=== PATIENT | female | born 1940 | race Caucasian/White ===

== ENCOUNTER 2017-11-05 17:14 | Inpatient (IN) | payer MEDICARE, BC, SELFPAY ==
[2017-11-05] VITALS (73 sets, daily range): BP systolic 83–158; BP diastolic 44–93; PULSE 76–135; RESP 10–42; TEMP 36.6–40.3; O2SAT 91–99
--- NOTE | 2017-11-05 17:19 | DI.COMBO_ITS ---
SYMPTOM/DIAGNOSIS: SOB, HYPOXIC, TACHYCARDIA PORTABLE AP CHEST: No priors. There is a poor inspiration. The patient is rotated. Heart size and pulmonary vasculature appear stable. Note is made of a nerve stimulator. Post surgical changes are seen in the lumbar spine at the bottom of the film. Note is also made of an IVC filter overlying the L 2 and L 3 vertebral bodies. The right lung appears clear. The left lung base is not well visualized and a left basilar infiltrate and/or effusion cannot be excluded. Post surgical changes are also noted in the cervical spine. Marked degenerative changes are seen in the shoulders, right greater than left. IMPRESSION: Question of a left basilar infiltrate and/or effusion. PE CHEST CT: CT angiography was performed with multi slice acquisition and multi planar and 3D reconstruction. CT scan of the chest was performed according to the pulmonary embolus protocol. There is no evidence of a pulmonary embolus. There is atherosclerosis of the thoracic aorta but no aneurysmal dilatation or dissection. Heart size is within normal limits. No pericardial effusion is seen. No findings to suggest right ventricular dysfunction are present. Mildly enlarged lymph nodes are seen in the mediastinum but no significant adenopathy is appreciated. No pleural effusion or pneumothorax is identified. There is an infiltrate seen in the left lower lobe suspicious for pneumonia. The tracheobronchial tree is unremarkable. Upper abdominal images show cholelithiasis. Renal cysts are present. Post surgical changes are seen in the lower cervical spine. The patient has a nerve stimulator, the tip is at approximately T 7. Note is made of an inferior vena cava filter. IMPRESSION: 1. No evidence of a pulmonary embolus, thoracic aortic dissection or aneurysm. 2. Left lower lobe infiltrate. This may represent atelectasis or pneumonia.
[2017-11-05] MEDS: PIPERACILLIN/TAZO 4.5 GM in Normal Saline 100 ML IVPB (18:00)
[2017-11-05] MEDS: Normal Saline 1,000 ML 1000 ML IV (18:02)
[2017-11-05] MEDS: Acetaminophen 500 MG TAB 1000 MG PO (18:05)
[2017-11-05 18:17] LABS: Lactate-non-spesis 2.2 mmol/L (0.6-1.4)
[2017-11-05 18:23] LABS: Abs Immature Grans 0.04 k/cumm (0.0-0.09); Absolute Basophil Count 0.01 k/cumm (0.0-0.2); Absolute Eosinophil Count 0.18 k/cumm (0.0-0.7); Absolute Monocyte Count 1.04 k/cumm (0.11-0.7); Basophils % 0.1; Eosinophils % 1.4; HCT 28.3 % (36.0-46.0); HGB 9.3 g/dL (12.0-15.5); Immature Grans % 0.3; Lymphocytes % 4.3; Mean Corp. HGB Concentration 32.9 g/dL (32.0-36.0); Mean Corpuscular Hemoglobin 34.3 pg (27.0-33.0); Mean Corpuscular Volume 104.4 fL (80-95); Mean Platelet Volume 10.4 fL (8.0-11.0); Monocytes % 8.2; Neutrophils % 85.7; Platelet Count 207 x1000/uL (130-400); RBC 2.71 m/cumm (4.00-5.20); RBC Distribution Width 14.5 % (11.7-14.6); White Blood Cell Count 12.67 k/cumm (4.4-10.8)
--- NOTE | 2017-11-05 18:24 | DI.VRAD_ITS ---
EXAM: Portable XR Chest, 1 View EXAM DATE/TIME: 11/05/2017 5:20 PM CLINICAL HISTORY: 77 years old, female; Signs and symptoms; Shortness of breath; Patient HX: SOB; Additional info: Portable exam TECHNIQUE: Portable XR of the chest, 1 view. COMPARISON: No relevant prior studies available. FINDINGS: Lungs: There is a poor inspiratory effort. A left lower lobe infiltrate is not excluded. Pleural space: A small left pleural effusion is not excluded. Heart/Mediastinum: There is cardiomegaly. Vasculature: There are arteriosclerotic changes of the aorta. Upper abdomen: There is an IVC filter. Bones/joints: The patient status post lumbar spine surgery. There are chronic changes of both shoulders. The patient is status post cervical spine surgery. Other findings: There are multiple stimulators. IMPRESSION: Poor inspiratory effort. Suspect left lower lobe infiltrate and pleural effusion. Cardiomegaly. Osseous findings as above. IVC filter. Stimulators. Dictated and Authenticated by: Roger Vaca MD. Ordering:RANDY ENRIQUEZ MD
[2017-11-05 18:25] LABS: Absolute Lymphocyte Count 0.54 k/cumm (1.2-3.4); Absolute Neutrophil Count 10.86 k/cumm (1.2-6.7)
[2017-11-05 18:41] LABS: ALT 120 U/L (12-78); AST 146 U/L (15-37); Albumin 2.2 g/dL (3.4-5.0); Alkaline Phosphatase 131 U/L (46-116); Anion Gap 6.7 mmol/L (3-11); BUN 20 mg/dL (7-18); Bilirubin, Total 0.5 mg/dL (0.2-1.0); CO2 28.3 mmol/L (21.0-32.0); CREATININE 0.94 mg/dL (0.55-1.02); Calcium 8.9 mg/dL (8.5-10.1); Chloride 97 mmol/L (98-107); Estimated GFR 57.74 (mL/min/1.73m2); Glucose 128 mg/dL (70-100); Potassium 4.5 mmol/L (3.5-5.1); Sodium 132 mmol/L (136-145)
[2017-11-05 18:42] LABS: Troponin I < 0.02 ng/mL (0.00-0.06)
[2017-11-05 18:56] LABS: Bilirubin Negative (Negative); Blood Trace-intact (Negative); Clarity Clear; Glucose Negative (Negative); Ketones Negative (Negative); Leukocyte Esterase Negative (Negative); Nitrite Negative (Negative); Specific Gravity 1.015 (1.005-1.025); Urobilinogen 0.2 EU/dL (Up TO 0.2); pH 5.5 (5-8)
[2017-11-05 19:02] LABS: Bacteria Negative HPF (Negative); C & S Indicated? C&S Done As Ordered; Casts 3-5 Hyaline LPF (Negative); Crystals Few Amorphous HPF (Negative); Epithelial Cells Few HPF (Negative); Mucus Negative (Negative); RBC Negative (0-2)
[2017-11-05] MEDS: Omnipaque 350 MG/ML 100 ML BTL IJ (19:52)
[2017-11-05] MEDS: VANCOMYCIN 1,000 MG in Normal Saline 250 ML 166.667 MG IVPB (20:02)
--- NOTE | 2017-11-05 20:21 | DI.VRAD_ITS ---
EXAM: CT Angiography Chest With Intravenous Contrast EXAM DATE/TIME: 11/05/2017 5:41 PM CLINICAL HISTORY: 77 years old, female; Signs and symptoms; Other: Tachy, hypoxic; Prior surgery TECHNIQUE: Axial computed tomographic angiography images of the chest with intravenous contrast using CT angiography protocol. Coronal and sagittal reformatted images were created and reviewed. MIP reconstructed images were created and reviewed. COMPARISON: SC XR PORTABLE CHEST AP 11/05/2017 5:29 PM FINDINGS: Tubes, catheters and devices: There is a stimulator posteriorly at the left side of the upper abdomen. The stimulator wire enters at approximately L2. The end is at approximately T7. Pulmonary arteries: There is no evidence of a pulmonary embolus. Aorta: There are arteriosclerotic changes of the abdominal aorta. Inferior vena cava: There is an IVC filter. Lungs: The tracheobronchial tree is patent bilaterally. There is a consolidation with air bronchograms within the left lower lobe and a left lower lobe infiltrate is suspected. Pleural space: Normal. No pneumothorax. No pleural effusion. Heart: The heart and pericardium are within normal limits. Bones/joints: The patient is status post cervical spine surgery. There are degenerative changes of both shoulders. There are degenerative changes of the thoracic spine. Soft tissues: Unremarkable. Lymph nodes: There is subcarinal adenopathy. Gallbladder and bile ducts: There are gallstones. Kidneys and ureters: There are suspected right renal cysts. The largest of which measures approximately 1.4 cm. Upper abdomen: The right hemidiaphragm is elevated. The visualized upper abdomen is somewhat limited due to motion. IMPRESSION: No evidence of pulmonary embolus. Arteriosclerotic changes of the aorta. Left lower lobe infiltrate. Osseous findings as above. IVC filter. Cholelithiasis. Stimulator as above. Dictated and Authenticated by: Roger Vaca MD. Ordering:PETER BOOTHE MD
[2017-11-05] MEDS: oxyCODONE 5 MG TAB PO (20:28)
[2017-11-05 21:03] LABS: BE (Venous) 2.9 mmol/L (-3-3); HCO3 (Venous) 27 mmol/L (22-28); pCO2 (Venous) 40 mm/Hg (34-47); pH (Venous) 7.44 (7.32-7.43); pO2 (Venous) 138 mm/Hg (28-44)
[2017-11-05 21:07] LABS: O2 Sat (Venous) > 99 % (70-80)
--- NOTE | 2017-11-05 21:30 | ED.GENADUL_ITS ---
Discharge Plan Disposition Patient Disposition: [facility] INPATIENT Condition: Stable Discharge Details Chief Complaint: SOB Clinical Impression: Sepsis syndrome, Left lower lobe pneumonia, Hypoxemia Reason For Visit: TACHYCARDIA,SEPSIS SYNDROME,INSTITUTION ACQUIRED P Admit Date/Time: 11/05/17 21:31 Admit Provider: Anthony Caballero Attending Provider: Anthony Caballero Primary Care Provider: Kinga Arceo ED Provider: Andrea Shaffer Discharge Data Discharge Date/Time-TO BE ENTERED AT DEPARTURE: 11/05/17 23:40 Medical Decision Making This is a 77-year-old female who was recently at [facility] for a left lower extremity knee surgery. She was discharged this afternoon and when she arrived at her facility here in [facility] she was noted to be tachycardic, febrile with a temperature of 104, and hypoxic in the 80s. She does not normally use oxygen. She was immediately sent to the ER for further evaluation. In the emergency department these physical exam findings and vital sign findings persisted. She was started on high flow oxygen therapy , positive pressure ventilation, she was noted to have crackles in her left lung moss. She did complain of cough. Although she had been on oral antibiotics for a urinary tract infection who is very concerned for potential pneumonia. With vital signs concerning for sepsis she was started with IV fluid boluses, and broad-spectrum antibiotics for potential hospital-acquired pneumonia versus unknown source. Initial blood pressure was in the 80s, however with fluid resuscitation the patient's blood pressure normalized. Her oxygen improved with positive pressure ventilation. Lab results have returned and demonstrates a white count of 12, a lactate of 2.2 which will require re- evaluation. Normal electrolytes. Creatinine is normal, troponin is normal. TSH is normal. Urinalysis shows no evidence of severe infection. CT scan does demonstrate evidence of no acute pulmonary embolus, there is notable left lower lobe infiltrate. VBG shows no signs of acidosis or significant CO2 retention. EKG shows evidence of sinus tachycardia but no significant ST changes. I discussed the findings in the current plan and the need for admission with the family. They do request that the patient be transferred back to [facility] since that is where the majority of her care was previously. I did contact [facility] and discussed the case with the night mid-level, he states that they do not have any beds appropriate for the patient at this time. I discussed the case with the hospitalist here at [facility], and Dr. Caballero agrees with the assessment and plan and accepts the patient for admission to the ICU. I have extensively reviewed the treatment plan with the patient. I have addressed all patient concerns at this time. I have also discussed the plan with the admitting physician and they agree with the current assessment and plan and have agreed to assume responsibility for the patient. All parties demonstrate verbal understanding and agreement with our assessment and plan at this time. With the stabilization of the patient's blood pressure and heart rate I feel that there is no indication for central line or pressors at this time. Since her lactate is less than 3 there is no indication for a 30 cc/kg bolus. CT scan per virtual radiology no evidence of pulmonary embolus. Atherosclerotic changes of the aorta. Left lower lobe infiltrate. Osseous findings as described above. IVC filter present. Cholelithiasis. Stimulator present. Portable chest x-ray demonstrates poor inspiratory effort. Suspected left lower lobe infiltrate and pleural effusion. Cardiomegaly. Osseous findings, IVC filter and stimulator present. Time EKG 17: 50 Rate 130, NJ 112, QTc 473, sinus tachycardia, short NJ syndrome notable artifact. No significant ST elevation. HPI General Date/Time Provider Initiated Documentation: 11/05/17 17:19 . HPI Narrative: This is a 77-year-old female with a past medical history of hypertension, aortic stenosis, high cholesterol, anemia, inferior vena cava filter, recent urinary tract infection for which she is being actively treated with Cefpodoxime presents today for evaluation of fever, hypoxemia, tachycardia and signs concerning for sepsis. Per the patient's history she was at [facility] less than 24 hours ago for surgery on her left knee and a patella fracture. She was discharged this afternoon apparently in good health, however upon her arrival to the rehab facility her temperature was noted to be 103-104, she was tachycardic in the 120s, hypoxic in the 80s, was immediately transferred to the [facility] emergency department for assessment. Patient does complain of cough, malaise, shortness of breath. She denies any pleuritic chest pain. She denies any current dysuria. She denies any new extremity pain. She denies any pertinent family history. She denies any IV or illicit drug use. She has no other complaints at this time. Related Data Home Medications Medication Instructions Recorded Confirmed allopurinol 300 mg PO BID 07/08/13 11/05/17 amitriptyline 25 mg PO HS 07/08/13 11/05/17 aspirin [Aspir 81] 81 mg PO DAILY 07/08/13 11/05/17 atorvastatin [Lipitor] 10 mg PO DAILY 07/08/13 11/05/17 cholecalciferol (vitamin D3) 400 unit PO DAILY 07/08/13 11/05/17 [Vitamin D] folic acid 1 mg PO DAILY 07/08/13 11/05/17 gabapentin [Neurontin] 800 mg PO TID 07/08/13 11/06/17 methotrexate sodium 1 tab PO .QTUES 07/08/13 11/06/17 metoprolol succinate 50 mg PO DAILY 07/08/13 11/05/17 multivitamin 1 tab PO DAILY 07/08/13 11/05/17 oxycodone 0.5 tab PO Q6H PRN PRN 07/08/13 11/06/17 amlodipine 1 tab PO DAILY 11/05/17 11/05/17 calcium carbonate-vitamin D3 1 tab PO BID 11/05/17 11/05/17 [Calcium 600 with Vitamin D3] docusate sodium [Colace] 2 tab PO BID PRN 11/05/17 11/05/17 furosemide 20 mg PO DAILY 11/05/17 11/06/17 prednisone 2.5 mg PO DAILY 11/05/17 11/05/17 Allergies Allergy/AdvReac Type Severity Reaction Status Date / Time hydrochlorothiazide Allergy Unverified 11/05/17 17:44 General Stated Complaint: SOB HONORIO: 2 Review of Systems Review of Systems All systems reviewed & are unremarkable except as noted in HPI and below PFSH Medical History Aortic stenosis (Chronic) Anemia (Chronic) Chronic pain (Chronic) Dyslipidemia (Acute) Hypertension (Chronic) Rheumatoid arthritis (Chronic) UTI (urinary tract infection) (Acute) Aortic stenosis (Chronic) Degenerative disc disease, cervical (Chronic) Degenerative disc disease, lumbar (Chronic) GERD (gastroesophageal reflux disease) (Chronic) Hypertension (Chronic) Hyperuricemia (Chronic) Inflammatory arthritis (Chronic) Osteoporosis (Chronic) Social History Smoking/Tobacco Use Status: Never Exam Narrative Exam Narrative: 1.Const: Well-nourished, Well-developed, appearing stated age 2.Eyes: PERRL, no conjunctival injection, and symmetrical lids. 3.ENT: Atraumatic external nose and ears. dry MM. Neck: Symmetric, trachea midline, No thyromegaly. 4.CVS: +S1/S2, notable systolic murmur or gallops. Peripheral pulses 2+ and equal in all extremities. Brisk capillary refill in all extremities. Including her lower extremities bilaterally 5.RESP: Crackles in the bases bilaterally, no significant wheezes. Mild tachypnea. 6.GI: Soft, Nontender/Nondistended, No hepatosplenomegaly. No guarding or rebound. 7.MSK: Normocephalic the patient does demonstrate a brace on her left lower extremity over the knee secondary to her recent surgery. Capillary refill is brisk, dorsalis pedis is present and +2 bilaterally. No tenderness 8.Skin: Warm, Dry. No rashes or lesions. 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 Sensation grossly intact, no focal neurologic deficits. 10.Psych: (AAO) x3. Appropriate mood and affect Course Vital Signs Pulse 123 H 11/05/17 17:10 Respiratory Rate 32 H 11/05/17 17:10 Pulse Oximetry 98 11/05/17 17:10 Temperature 37.7 C H 11/05/17 21:11 Temperature Source Skin 11/05/17 21:11 Pulse 111 H 11/05/17 20:16 Pulse 111 H 11/05/17 20:16 Respiratory Rate 28 H 11/05/17 20:16 Respiratory Effort 11/05/17 18:10 Blood Pressure 123/51 L 11/05/17 20:16 Blood Pressure Mean 67 11/05/17 20:16 Pulse Oximetry 93 L 11/05/17 20:16 Oxygen Delivery Method Bi-pap 11/05/17 17:38 Fraction of Inspired Oxygen (FIO2) 30 11/05/17 18:20 Pain Level 7 11/05/17 20:28 Lab/Test Results Lab/Test Results: 11/05/17 18:21 Urine - Cath Palomares Indwelling Urine Culture - Pending 11/05/17 18:16 Blood Blood Culture - Pending 11/05/17 17:33 Blood Blood Culture - Pending Laboratory Tests Range/Units 11/05/17 11/05/17 11/05/17 17:33 17:33 17:33 WBC (4.4-10.8) k/cumm 12.67 H RBC (4.00-5.20) m/cumm 2.71 L Hgb (12.0-15.5) g/dL 9.3 L Hct (36.0-46.0) % 28.3 L MCV (80-95) fL 104.4 H MCH (27.0-33.0) pg 34.3 H MCHC (32.0-36.0) g/dL 32.9 RDW (11.7-14.6) % 14.5 Plt Count (130-400) x1000/uL 207 MPV (8.0-11.0) fL 10.4 Immature Gran % 0.3 Neutrophils % 85.7 Lymphocytes % 4.3 Monocytes % 8.2 Eosinophils % 1.4 Basophils % 0.1 Absolute Neutrophils (1.2-6.7) k/cumm 10.86 H Absolute Lymphocytes (1.2-3.4) k/cumm 0.54 L Absolute Monocytes (0.11-0.7) k/cumm 1.04 H Absolute Eosinophils (0.0-0.7) k/cumm 0.18 Absolute Basophils (0.0-0.2) k/cumm 0.01 VBG pH (7.32-7.43) VBG pCO2 (34-47) mm/Hg VBG pO2 (28-44) mm/Hg VBG HCO3 (22-28) mmol/L VBG Total CO2 VBG O2 Saturation (70-80) % VBG Base Excess (-3-3) mmol/L Sodium (136-145) mmol/L 132 L Potassium (3.5-5.1) mmol/L 4.5 Chloride (98-107) mmol/L 97 L Carbon Dioxide (21.0-32.0) mmol/L 28.3 Anion Gap (3-11) mmol/L 6.7 BUN (7-18) mg/dL 20 H Creatinine (0.55-1.02) mg/dL 0.94 Estimated GFR/1.73 m2 (mL/min/1.73m2) 57.74 Glucose (70-100) mg/dL 128 H Lactate (0.6-1.4) mmol/L 2.2 H Calcium (8.5-10.1) mg/dL 8.9 Total Bilirubin (0.2-1.0) mg/dL 0.5 AST (15-37) U/L 146 H ALT (12-78) U/L 120 H Alkaline Phosphatase (46-116) U/L 131 H Troponin I (0.00-0.06) ng/mL < 0.02 Total Protein (6.4-8.2) g/dL 6.0 L Albumin (3.4-5.0) g/dL 2.2 L TSH (0.358-3.74) uIU/mL 2.20 Urine Color (Yellow) Urine Clarity Urine pH (5-8) Ur Specific [place] (1.005-1.025) Urine Protein (Negative) mg/dL Urine Ketones (Negative) mg/dL Urine Blood (Negative) Urine Nitrite (Negative) Urine Bilirubin (Negative) Urine Urobilinogen (Up TO 0.2) EU/dL Ur Leukocyte Esterase (Negative) Urine RBC (0-2) Urine WBC (0-5) HPF Ur Epithelial Cells (Negative) HPF Urine Crystals (Negative) HPF Urine Bacteria (Negative) HPF Urine Casts (Negative) LPF Urine Mucus (Negative) Ur Culture Indicated? Urine Glucose (Negative) mg/dL Range/Units 11/05/17 11/05/17 11/05/17 17:34 18:21 20:55 WBC (4.4-10.8) k/cumm RBC (4.00-5.20) m/cumm Hgb (12.0-15.5) g/dL Hct (36.0-46.0) % MCV (80-95) fL MCH (27.0-33.0) pg MCHC (32.0-36.0) g/dL RDW (11.7-14.6) % Plt Count (130-400) x1000/uL MPV (8.0-11.0) fL Immature Gran % Neutrophils % Lymphocytes % Monocytes % Eosinophils % Basophils % Absolute Neutrophils (1.2-6.7) k/cumm Absolute Lymphocytes (1.2-3.4) k/cumm Absolute Monocytes (0.11-0.7) k/cumm Absolute Eosinophils (0.0-0.7) k/cumm Absolute Basophils (0.0-0.2) k/cumm VBG pH (7.32-7.43) 7.44 H VBG pCO2 (34-47) mm/Hg 40 VBG pO2 (28-44) mm/Hg 138 H VBG HCO3 (22-28) mmol/L 27 VBG Total CO2 Not Applicable VBG O2 Saturation (70-80) % > 99 H VBG Base Excess (-3-3) mmol/L 2.9 Sodium (136-145) mmol/L Potassium (3.5-5.1) mmol/L Chloride (98-107) mmol/L Carbon Dioxide (21.0-32.0) mmol/L Anion Gap (3-11) mmol/L BUN (7-18) mg/dL Creatinine (0.55-1.02) mg/dL Estimated GFR/1.73 m2 (mL/min/1.73m2) Glucose (70-100) mg/dL Lactate (0.6-1.4) mmol/L Calcium (8.5-10.1) mg/dL Total Bilirubin (0.2-1.0) mg/dL AST (15-37) U/L ALT (12-78) U/L Alkaline Phosphatase (46-116) U/L Troponin I (0.00-0.06) ng/mL Total Protein (6.4-8.2) g/dL Albumin (3.4-5.0) g/dL TSH (0.358-3.74) uIU/mL Cancelled Urine Color (Yellow) Yellow Urine Clarity Clear Urine pH (5-8) 5.5 Ur Specific [place] (1.005-1.025) 1.015 Urine Protein (Negative) mg/dL 100 H Urine Ketones (Negative) mg/dL Negative Urine Blood (Negative) Trace-intact H Urine Nitrite (Negative) Negative Urine Bilirubin (Negative) Negative Urine Urobilinogen (Up TO 0.2) EU/dL 0.2 Ur Leukocyte Esterase (Negative) Negative Urine RBC (0-2) Negative Urine WBC (0-5) HPF 5-10 Ur Epithelial Cells (Negative) HPF Few Urine Crystals (Negative) HPF Few amorphous Urine Bacteria (Negative) HPF Negative Urine Casts (Negative) LPF 3-5 hyaline Urine Mucus (Negative) Negative Ur Culture Indicated? C&s done as ordered Urine Glucose (Negative) mg/dL Negative
--- NOTE | 2017-11-05 22:20 | W.PM.HP.N ---
Date of service: 11/05/17 Time of Service: 22:21 Assessment and Plan (1) Left lower lobe pneumonia: Start date: 11/05/17 Current visit: Yes Status: Acute 77-year-old lady who recently was hospitalized for surgery on the left knee and manifested fever, shortness of breath and tachycardia while being transferred to a local rehab facility. ED evaluation revealed left lower lobe pneumonia which will be treated as an institution acquired pneumonia. She is not hypoxic and was more comfortable at the time I examined her. She had IV hydration this will be modified with advancing metoprolol and no diuresis for now which she was on as an outpatient possibly for hypertension or peripheral edema. She has not been significantly hypoxic by report from the ED. (2) Sepsis syndrome: Start date: 11/05/17 Current visit: Yes Status: Acute Associated with her acute fever, tachycardia and leukocytosis with fever and tachycardia resolved after IV hydration. Diuretics will be held for now. Metoprolol will be adjusted for blood pressure off diuretics. (3) Tachycardia: Start date: 11/05/17 Current visit: Yes Status: Acute This has improved with IV hydration most likely was a consequence of acute infection with chronic diuresis and slight dehydration. Continue IV fluids slowing as she has increased output improves. Follow-up on labs. History of Present Illness Chief Complaint: Acute fever with tachycardia Narrative: This is a very pleasant 77-year-old lady who appears older than his stated age who recently was hospitalized at [facility] for repair of a spontaneous fracture left patella which occurred while she was done at her kitchen sink. She has had severe inflammatory arthritis chronically on methotrexate and low-dose prednisone for this last year. She has osteoporosis and has had multiple orthopedic surgeries the pathologic fracture of her right hip requiring replacement, surgery on her right knee for cartilage removal, surgery on her left elbow which resulted in a DVT and IVC filter being placed at one time and back surgery on her cervical spine and lumbar spine with a lumbar stimulator placed after 1 of the surgeries. She has had a total hysterectomy as one of her non-orthopedic surgeries. After repair of her left knee she was being transferred to a local nursing facility for rehabilitation and had stable vital signs and no symptoms upon discharge but in transfer had fever up to 104 reported, though in the emergency room her temperature was last recorded at 37.7. She had tachycardia but no hypoxemia. She was also dyspneic but no cough. She was found to have an elevated lactic acid and was started started on treatment for institution acquired pneumonia by the ED physician. CT scan for PE protocol did not reveal any PE but did reveal left lower lobe infiltrate. At the time I saw the patient she was not tachycardic after being hydrated and felt much better. She is not having rigors or chills. Fever had improved. She does have chronic pain on chronic with fentanyl and high-dose oxycodone though she had weaned down on oxycodone before she fractured her left patella. The patient has recently lost her in the last year and is doing with this living along with her arthritic disabilities. Her daughter is her DPOA. Past medical history significant for her inflammatory arthritis with resulting osteoporosis and deformities from chronic treatment of this problem, chronic pain, hypertension, recent UTI with indwelling Palomares in place on transfer to the intermediate, aortic stenosis but no CHF though she is on Lasix daily and GERD. Review of Systems Constitutional Reports as per HPI Cardiovascular Reports edema Respiratory Reports as per HPI Gastrointestinal Comments: No abdominal pain or change in bowel movements recently. Genitourinary Comments: Endorgan Palomares with recent UTI and presently no dysuria. Musculoskeletal Comments: Diffuse arthritic changes and deformities with long-term arthritis. Neurologic Reports paresthesias Psychiatric Reports depression Comments: She is grieving her 's recent . Hematologic/Lymphatic Reports easy bruising [facility] Medical History UTI (urinary tract infection) (Acute) Aortic stenosis (Chronic) Degenerative disc disease, cervical (Chronic) Degenerative disc disease, lumbar (Chronic) GERD (gastroesophageal reflux disease) (Chronic) Hypertension (Chronic) Hyperuricemia (Chronic) Inflammatory arthritis (Chronic) Osteoporosis (Chronic) Social History Smoking/Tobacco Use Status: Never Meds Home Medications Medication Instructions Recorded Confirmed Type alendronate 70 mg PO .QWEEKLY 07/08/13 07/08/13 History allopurinol 300 mg PO BID 07/08/13 11/05/17 History amitriptyline 25 mg PO HS 07/08/13 11/05/17 History aspirin [Aspir 81] 81 mg PO DAILY 07/08/13 11/05/17 History atorvastatin [Lipitor] 10 mg PO DAILY 07/08/13 11/05/17 History cholecalciferol (vitamin D3) 400 unit PO DAILY 07/08/13 11/05/17 History [Vitamin D] diclofenac sodium 50 mg PO DIRECTED 07/08/13 07/08/13 History fentanyl 75 mcg TRANSDERMAL .Q3DAYS 07/08/13 11/05/17 History folic acid 1 mg PO DAILY 07/08/13 11/05/17 History gabapentin [Neurontin] 400 mg PO TID 07/08/13 11/05/17 History lisinopril 30 mg PO DAILY 07/08/13 07/08/13 History methotrexate sodium 7 tab PO .QTUES 07/08/13 11/05/17 History metoprolol succinate 50 mg PO DAILY 07/08/13 11/05/17 History multivitamin 1 tab PO DAILY 07/08/13 11/05/17 History oxycodone 1 tab PO Q6H PRN PRN 07/08/13 11/05/17 History Lactobacillus acidophilus 1 tab PO DAILY AM 11/05/17 11/05/17 History Saccharomyces boulardii [Florastor] 1 cap PO BID 11/05/17 11/05/17 History amlodipine 1 tab PO DAILY 11/05/17 11/05/17 History calcium carbonate-vitamin D3 1 tab PO BID 11/05/17 11/05/17 History [Calcium 600 with Vitamin D3] cefpodoxime 100 mg PO BID 11/05/17 11/05/17 History docusate sodium [Colace] 2 tab PO BID PRN 11/05/17 11/05/17 History furosemide 20 mg PO DAILY PRN 11/05/17 11/05/17 History ketoconazole 1 applic TOPICAL BID 11/05/17 11/05/17 History magnesium chloride 128 mg PO BID 11/05/17 11/05/17 History pantoprazole 20 mg PO DAILY 11/05/17 11/05/17 History prednisone 2.5 mg PO DAILY 11/05/17 11/05/17 History Allergies Allergy/AdvReac Type Severity Reaction Status Date / Time hydrochlorothiazide Allergy Unverified 11/05/17 17:44 Exam Narrative Exam Narrative: General: Patient appears older than stated age, alert and oriented x3 is very talkative with flat affect and depressed mood especially when her she became tearful. HEENT: Normocephalic with eyes revealing pupils equal reactive light symmetrically, extraocular movement intact with sclera anicteric. External ears normal. Oropharynx with dry oral mucosa poor dentition. Neck: Supple without JVD. Lungs: Decreased aeration left base with transmitted cardiac murmur into that region but no rales, dullness to percussion of the left base with bronchovesicular breath sounds diffusely and no focalizing rales with better aeration of the rest of the lung moss. Heart: Regular rate and rhythm with 4/6 systolic murmur left sternal border and radiation into the left back. Breast: Exam deferred. Abdomen: Soft, nontender with no palpable hepatosplenomegaly. Bowel sounds active in all quadrants. Genitalia rectal exam: Deferred. Extremities: Deformities of the left shoulder and elbow with swelling, arthritic changes diffusely over lower extremities large joints with some mild changes of the joints of her hands and feet. No clubbing, no cyanosis. Diffuse nonpitting edema with decreased range of motion and atrophic musculature over upper and lower extremities. Dry Sudeep bandage over her partially flexed left knee which also is in a brace. Skin: Thin, pale with multiple ecchymotic areas over her extremities. Back: Kyphotic with decreased range of motion. Neuro: No focalizing motor deficits, cranial nerves II through XII grossly intact. No tremor. No Babinski's. Psych: Mood depressed otherwise normal thought processes with normal long-term and short-term memory. Results Labs : 11/05/17 17:33 11/05/17 17:33 Laboratory Results - last 24 hr 11/05/17 11/05/17 11/05/17 17:33 17:33 17:33 WBC 12.67 H RBC 2.71 L Hgb 9.3 L Hct 28.3 L MCV 104.4 H MCH 34.3 H MCHC 32.9 RDW 14.5 Plt Count 207 MPV 10.4 Immature Gran % 0.3 Neutrophils % 85.7 Lymphocytes % 4.3 Monocytes % 8.2 Eosinophils % 1.4 Basophils % 0.1 Absolute Neutrophils 10.86 H Absolute Lymphocytes 0.54 L Absolute Monocytes 1.04 H Absolute Eosinophils 0.18 Absolute Basophils 0.01 VBG pH VBG pCO2 VBG pO2 VBG HCO3 VBG Total CO2 VBG O2 Saturation VBG Base Excess Sodium 132 L Potassium 4.5 Chloride 97 L Carbon Dioxide 28.3 Anion Gap 6.7 BUN 20 H Creatinine 0.94 Estimated GFR/1.73 m2 57.74 Glucose 128 H Lactate 2.2 H Calcium 8.9 Total Bilirubin 0.5 AST 146 H ALT 120 H Alkaline Phosphatase 131 H Troponin I < 0.02 Total Protein 6.0 L Albumin 2.2 L TSH 2.20 Urine Color Urine Clarity Urine pH Ur Specific [place] Urine Protein Urine Ketones Urine Blood Urine Nitrite Urine Bilirubin Urine Urobilinogen Ur Leukocyte Esterase Urine RBC Urine WBC Ur Epithelial Cells Urine Crystals Urine Bacteria Urine Casts Urine Mucus Ur Culture Indicated? Urine Glucose 11/05/17 11/05/17 11/05/17 17:34 18:21 20:55 WBC RBC Hgb Hct MCV MCH MCHC RDW Plt Count MPV Immature Gran % Neutrophils % Lymphocytes % Monocytes % Eosinophils % Basophils % Absolute Neutrophils Absolute Lymphocytes Absolute Monocytes Absolute Eosinophils Absolute Basophils VBG pH 7.44 H VBG pCO2 40 VBG pO2 138 H VBG HCO3 27 VBG Total CO2 Not Applicable VBG O2 Saturation > 99 H VBG Base Excess 2.9 Sodium Potassium Chloride Carbon Dioxide Anion Gap BUN Creatinine Estimated GFR/1.73 m2 Glucose Lactate Calcium Total Bilirubin AST ALT Alkaline Phosphatase Troponin I Total Protein Albumin TSH Cancelled Urine Color Yellow Urine Clarity Clear Urine pH 5.5 Ur Specific [place] 1.015 Urine Protein 100 H Urine Ketones Negative Urine Blood Trace-intact H Urine Nitrite Negative Urine Bilirubin Negative Urine Urobilinogen 0.2 Ur Leukocyte Esterase Negative Urine RBC Negative Urine WBC 5-10 Ur Epithelial Cells Few Urine Crystals Few amorphous Urine Bacteria Negative Urine Casts 3-5 hyaline Urine Mucus Negative Ur Culture Indicated? C&s done as ordered Urine Glucose Negative
[2017-11-05] MEDS: Normal Saline 1,000 ML 150 ML IV (23:40)
[2017-11-06] VITALS (84 sets, daily range): BP systolic 95–142; BP diastolic 39–77; PULSE 69–96; RESP 13–27; TEMP 36.7–37.2; O2SAT 87–99
[2017-11-06] MEDS: Amitriptyline 25 MG TAB PO ×2 (01:11→23:09)
[2017-11-06] MEDS: Heparin 5,000 UNITS/ML VIAL 5000 UNITS SC ×4 (01:11→23:11)
[2017-11-06] MEDS: Hydrocortisone SOD SUC. 100 MG VIAL IVP (01:11)
[2017-11-06] MEDS: oxyCODONE 15 MG TAB PO ×4 (01:11→20:22)
[2017-11-06] MEDS: PIPERACILLIN/TAZO 4.5 GM in Normal Saline 100 ML IVPB (02:17)
[2017-11-06] MEDS: Metoprolol 25 MG TAB 12.5 MG PO (06:30)
[2017-11-06 07:31] LABS: HCT 27.8 % (36.0-46.0); HGB 8.8 g/dL (12.0-15.5); Mean Corp. HGB Concentration 31.7 g/dL (32.0-36.0); Mean Corpuscular Hemoglobin 33.6 pg (27.0-33.0); Mean Corpuscular Volume 106.1 fL (80-95); Mean Platelet Volume 10.3 fL (8.0-11.0); Platelet Count 204 x1000/uL (130-400); RBC 2.62 m/cumm (4.00-5.20); RBC Distribution Width 14.7 % (11.7-14.6); White Blood Cell Count 12.29 k/cumm (4.4-10.8)
[2017-11-06 07:55] LABS: ALT 120 U/L (12-78); AST 118 U/L (15-37); Alkaline Phosphatase 138 U/L (46-116); Anion Gap 9.9 mmol/L (3-11); BUN 21 mg/dL (7-18); Bilirubin, Total 0.4 mg/dL (0.2-1.0); CO2 24.1 mmol/L (21.0-32.0); CREATININE 0.82 mg/dL (0.55-1.02); Calcium 8.6 mg/dL (8.5-10.1); Chloride 105 mmol/L (98-107); Glucose 157 mg/dL (70-100); Potassium 4.8 mmol/L (3.5-5.1); Sodium 139 mmol/L (136-145); Total Protein 4.9 g/dL (6.4-8.2)
--- NOTE | 2017-11-06 08:30 | PDOC.CMIN ---
Care Management Initial Assess REASON FOR HOSPITALIZATION:: Tachycardia, aepsis syndrome, institution aquired pnemonia PAST MEDICAL HISTORY/PAST SURGICAL HISTORY:: UTI, Aortic stenosis, Degenerative disc disease; cervical, Degenerative disc disease; lumbar, GERD, Hypertension, Hyperuricemia , Inflammatory arthritis, Osteoporosis, multiple orthopedic surgeries the pathologic fracture of her right hip requiring replacement, surgery on her right knee for cartilage removal, surgery on her left elbow which resulted in a DVT and IVC filter being placed at one time and back surgery on her cervical spine and lumbar spine with a lumbar stimulator placed after 1 of the surgeries, recent spontaneous fracture left patella, total hysterectomy, inflammatory arthritis with resulting osteoporosis and deformities from chronic treatment of this problem, chronic pain, hypertension, recent UTI with indwelling Palomares in place on transfer to the longterm, aortic stenosis but no CHF though she is on Lasix daily and GERD. PREVIOUS FUNCTIONAL STATUS/SOCIAL/FAMILY SUPPORTS:: Ashia was transferred to [facility] from [facility]. She recently lost her , and also struggles with arthritic disabilities and chronic pain. Her daughter is her DPOA. BARTOLO spoke with [facility] who reported Ashia was at the Rehab for a brief period of time prior to transfer to [facility] due to her medical status on arrival. BARTOLO also spoke with Dr. Villar who shared that she had followed up with [facility] and discussed Ashia's medical status upon arrival with 's Nursing Ore Roaster. CURRENT FUNCTIONAL STATUS:: Ashia was sitting up in bed when BARTOLO observed her, she was working with nursing and appeared alert and oriented. ADVANCE DIRECTIVES:: DPOA: daughterSol Has patient been provided with information about the portal?: No Did the patient sign up for the portal?: No CODE STATUS:: Full Code INSURANCE COVERAGE / FINANCIAL ISSUES:: KATIE/OSCAR Jose. Medicare CURRENT HOME/COMMUNITY SERVICES/EQUIPMENT:: Ashia was recently admitted to [facility] for a skilled stay for recovery following an acute admission at [facility]; she will return to the rehab when medically ready and the facility will manage her further service and equipment needs. PRIMARY CARE PHYSICIAN:: Kinga Arceo POTENTIAL DISCHARGE NEEDS:: Coordinated return to [facility] PATIENT/FAMILY EDUCATION NEEDS:: Review of transfer process, discharge instructions. ANTICIPATED BARRIERS TO DISCHARGE:: None identified. TRANSPORTATION:: EMS-vs-W/C Van PLAN:: Ashia will return to [facility] for a skilled stay when medically ready and the facility will manage her further service and equipment needs. She will tranport via W/[facility]-vs[facility]EMS.
--- NOTE | 2017-11-06 08:51 | INITIAL_ITS ---
Care Management Initial Assess REASON FOR HOSPITALIZATION:: Tachycardia, aepsis syndrome, institution aquired pnemonia PAST MEDICAL HISTORY/PAST SURGICAL HISTORY:: UTI, Aortic stenosis, Degenerative disc disease; cervical, Degenerative disc disease; lumbar, GERD, Hypertension, Hyperuricemia , Inflammatory arthritis, Osteoporosis, multiple orthopedic surgeries the pathologic fracture of her right hip requiring replacement, surgery on her right knee for cartilage removal, surgery on her left elbow which resulted in a DVT and IVC filter being placed at one time and back surgery on her cervical spine and lumbar spine with a lumbar stimulator placed after 1 of the surgeries, recent spontaneous fracture left patella, total hysterectomy, inflammatory arthritis with resulting osteoporosis and deformities from chronic treatment of this problem, chronic pain, hypertension, recent UTI with indwelling Palomares in place on transfer to the residential, aortic stenosis but no CHF though she is on Lasix daily and GERD. PREVIOUS FUNCTIONAL STATUS/SOCIAL/FAMILY SUPPORTS:: Ashia was transferred to [facility] from [facility]. She recently lost her , and also struggles with arthritic disabilities and chronic pain. Her daughter is her DPOA. BARTOLO spoke with [facility] who reported Ashia was at the Rehab for a brief period of time prior to transfer to [facility] due to her medical status on arrival. BARTOLO also spoke with Dr. Villar who shared that she had followed up with [facility] and discussed Ashia's medical status upon arrival with 's Nursing Backhaul Driver. CURRENT FUNCTIONAL STATUS:: Ashia was sitting up in bed when BARTOLO observed her , she was working with nursing and appeared alert and oriented. ADVANCE DIRECTIVES:: DPOA: daughterSol Has patient been provided with information about the portal?: No Did the patient sign up for the portal?: No CODE STATUS:: Full Code INSURANCE COVERAGE / FINANCIAL ISSUES:: KATIE/OSCAR Jose. Medicare CURRENT HOME/COMMUNITY SERVICES/EQUIPMENT:: Ashia was recently admitted to [facility] for a skilled stay for recovery following an acute admission at [facility]; she will return to the rehab when medically ready and the facility will manage her further service and equipment needs. PRIMARY CARE PHYSICIAN:: Kinga Arceo POTENTIAL DISCHARGE NEEDS:: Coordinated return to [facility] PATIENT/FAMILY EDUCATION NEEDS:: Review of transfer process, discharge instructions. ANTICIPATED BARRIERS TO DISCHARGE:: None identified. TRANSPORTATION:: EMS-vs-W/C Van PLAN:: Ashia will return to [facility] for a skilled stay when medically ready and the facility will manage her further service and equipment needs. She will tranport via [facility].
[2017-11-06] MEDS: Allopurinol 300 MG TAB PO ×2 (09:07→20:22)
[2017-11-06] MEDS: Folic Acid 1 MG TAB PO (09:07)
[2017-11-06] MEDS: Pantoprazole 20 MG TABCR PO (09:07)
[2017-11-06] MEDS: Gabapentin 400 MG CAP PO ×3 (09:08→20:22)
[2017-11-06] MEDS: Metoprolol 12.5 MG TAB PO (09:08)
[2017-11-06] MEDS: Aspirin E.C. 81 MG TABEC PO (09:08)
[2017-11-06 09:10] LABS: Lactate-non-spesis 1.2 mmol/L (0.6-1.4)
[2017-11-06] MEDS: CEFEPIME 2 GM in Normal Saline 100 ML IVPB ×3 (09:14→23:07)
[2017-11-06 09:57] LABS: Ferritin 146 ng/mL (8-388); Vitamin B12 843 pg/mL (193-986)
[2017-11-06 10:00] LABS: Folate > 20.0 ng/mL (8.6-20.0)
[2017-11-06 10:02] LABS: Iron 9 ug/dL (50-175); Total Iron Binding Capacity 176 ug/dL (250-450); Transferrin Sat 5 % (15-50)
[2017-11-06] MEDS: Hydrocortisone SOD SUC. 100 MG VIAL 50 MG IVP ×3 (10:09→23:09)
[2017-11-06] MEDS: VANCOMYCIN 750 MG in Normal Saline 250 ML 166.6666 MG IVPB (10:56)
--- NOTE | 2017-11-06 13:13 | W.PM.PROGNOT ---
Date of service: 11/06/17 Time of Service: 13:16 Assessment and Plan (1) Left lower lobe pneumonia: Current visit: Yes Status: Acute Treat as HCAP given recent hospitalization - Day #2 Vancomycin and Cefepime. Check Blood and Sputum Culture. (2) Sepsis syndrome: Current visit: Yes Status: Acute Based on elevated temperature, RR, HR, WBC, and known pulmonary source - patient appears vastly improved and now with normalized lactate. Continue IVFs, antibiotic therapy, and await culture results. Also on Stress dose steroids due to chronic low dose prednisone use. (3) Aortic stenosis: Current visit: Yes Status: Chronic Severe but asymptomatic with intact LVEF by review of outside hospital records. Continue to monitor fluid status and blood pressure, both currently reasonable. Diuretic therapy is on hold. Also on BB, ASA, and statin as part of home meds. (4) Rheumatoid arthritis: Current visit: Yes Status: Chronic Continue MTx. Low dose daily prednisone on hold in light of stress dosed steroids. (5) Hypertension: Current visit: Yes Status: Chronic Holding CCB in setting of acute sepsis. Continue low dose BB with strict hold parameters. (6) Dyslipidemia: Current visit: Yes Status: Acute Currently on low dose high potency statin therapy. (7) Chronic pain: Current visit: Yes Status: Chronic On the basis of RA. Currently on Gabapentin and Oxycodone. (8) Anemia: Current visit: Yes Status: Chronic Low iron, but also low TIBC and normal ferritin. Likely Anemia of Chronic Disease with potential overlying blood loss. B12, FA, and TSH also checked and normal. Check stool for occult blood, continue PPI therapy, and monitor H/H closely. (9) Diarrhea: Current visit: Yes Status: Acute Potentially on basis of antibiotic side-effect. However, patient is now on second bout of antibiotic therapy in the last week. Check stool studies, including fecal leukocytes and C.Diff. (10) DVT prophylaxis: Current visit: Yes Status: Acute SC Heparin. Subjective Interval history since last seen: 77 year old woman with a past medical history significant for RA on Methotrexate and daily Prednisone, Aortic Stenosis quantified as 'severe' by review of outside records, History of PE s/p IVC filter placement presents to [facility] emergency department with reported fevers. Mrs. Montero was recently hospitalized at [facility] for repair of a left Patella fracture on 11/01/2017. She also underwent treatment for a UTI (Proteus Mirabilis, sensitive to CTx & FQ's), and underwent clearance for surgical intervention due to her history of Aortic Stenosis (Patient's Soldering Machine Operator Automatic is Dr. Malave). She spent a total of 4 days in the hospital. Following treatment she was discharged to a Alf Facility. However, en-route she was noted to have a significant elevation in temperature, and was brought to the emergency department for further evaluation. Work-up in the ED included evidence of Tachycardia, elevated Lactic Acid, Leukocytosis, and a LLL Infiltrate by CT. She was diagnosed with Sepsis on the basis of HCAP, and admitted to the hospital. THis morning the patient is vastly improved, with resolved Tachycardia and normalized Lactic Acid. She reports continued but improved symptoms overall. However, noted to have loose stools. She is currently afebrile. Exam Narrative Exam Narrative: General: Patient appears comfortable lying in bed, AAOX3, NAD Neck: Supple CV: Regular, nontachycardic, S1S2, 3/6 harsh BILL best appreciated RUSB. Pulmonary: Left basilar rhonchi without wheezing Abdomen: + Bowel Sounds, soft, nontender, nondistended Vascular: B/l LE lower extremity edema Extremities: Deformities the majority of inspected joints. No clubbing, no cyanosis. Neurologic: CN II-XII grossly intact. No focal deficits. Psych: Normal mood and affect. Objective Objective Clinical Data: Abnormal lab results 11/05/17 11/05/17 11/05/17 Range/Units 17:33 17:33 17:33 WBC 12.67 H (4.4-10.8) k/cumm RBC 2.71 L (4.00-5.20) m/cumm Hgb 9.3 L (12.0-15.5) g/dL Hct 28.3 L (36.0-46.0) % MCV 104.4 H (80-95) fL MCH 34.3 H (27.0-33.0) pg MCHC (32.0-36.0) g/dL RDW (11.7-14.6) % Absolute Neutrophils 10.86 H (1.2-6.7) k/cumm Absolute Lymphocytes 0.54 L (1.2-3.4) k/cumm Absolute Monocytes 1.04 H (0.11-0.7) k/cumm VBG pH (7.32-7.43) VBG pO2 (28-44) mm/Hg VBG O2 Saturation (70-80) % Sodium 132 L (136-145) mmol/L Chloride 97 L (98-107) mmol/L BUN 20 H (7-18) mg/dL Glucose 128 H (70-100) mg/dL Lactate 2.2 H (0.6-1.4) mmol/L Iron (50-175) ug/dL TIBC (250-450) ug/dL Transferrin % Sat (15-50) % AST 146 H (15-37) U/L ALT 120 H (12-78) U/L Alkaline Phosphatase 131 H (46-116) U/L Total Protein 6.0 L (6.4-8.2) g/dL Albumin 2.2 L (3.4-5.0) g/dL Folate (8.6-20.0) ng/mL Urine Protein (Negative) mg/dL Urine Blood (Negative) 11/05/17 11/05/17 11/06/17 Range/Units 18:21 20:55 06:20 WBC (4.4-10.8) k/cumm RBC (4.00-5.20) m/cumm Hgb (12.0-15.5) g/dL Hct (36.0-46.0) % MCV (80-95) fL MCH (27.0-33.0) pg MCHC (32.0-36.0) g/dL RDW (11.7-14.6) % Absolute Neutrophils (1.2-6.7) k/cumm Absolute Lymphocytes (1.2-3.4) k/cumm Absolute Monocytes (0.11-0.7) k/cumm VBG pH 7.44 H (7.32-7.43) VBG pO2 138 H (28-44) mm/Hg VBG O2 Saturation > 99 H (70-80) % Sodium (136-145) mmol/L Chloride (98-107) mmol/L BUN 21 H (7-18) mg/dL Glucose 157 H (70-100) mg/dL Lactate (0.6-1.4) mmol/L Iron (50-175) ug/dL TIBC (250-450) ug/dL Transferrin % Sat (15-50) % AST 118 H (15-37) U/L ALT 120 H (12-78) U/L Alkaline Phosphatase 138 H (46-116) U/L Total Protein 4.9 L (6.4-8.2) g/dL Albumin 2.0 L (3.4-5.0) g/dL Folate (8.6-20.0) ng/mL Urine Protein 100 H (Negative) mg/dL Urine Blood Trace-intact H (Negative) 11/06/17 11/06/17 11/06/17 Range/Units 06:20 09:00 09:00 WBC 12.29 H (4.4-10.8) k/cumm RBC 2.62 L (4.00-5.20) m/cumm Hgb 8.8 L (12.0-15.5) g/dL Hct 27.8 L (36.0-46.0) % MCV 106.1 H (80-95) fL MCH 33.6 H (27.0-33.0) pg MCHC 31.7 L (32.0-36.0) g/dL RDW 14.7 H (11.7-14.6) % Absolute Neutrophils (1.2-6.7) k/cumm Absolute Lymphocytes (1.2-3.4) k/cumm Absolute Monocytes (0.11-0.7) k/cumm VBG pH (7.32-7.43) VBG pO2 (28-44) mm/Hg VBG O2 Saturation (70-80) % Sodium (136-145) mmol/L Chloride (98-107) mmol/L BUN (7-18) mg/dL Glucose (70-100) mg/dL Lactate (0.6-1.4) mmol/L Iron 9 L (50-175) ug/dL TIBC 176 L (250-450) ug/dL Transferrin % Sat 5 L (15-50) % AST (15-37) U/L ALT (12-78) U/L Alkaline Phosphatase (46-116) U/L Total Protein (6.4-8.2) g/dL Albumin (3.4-5.0) g/dL Folate > 20.0 H (8.6-20.0) ng/mL Urine Protein (Negative) mg/dL Urine Blood (Negative) Vital Signs Temperature 37.2 C 11/06/17 04:15 Temperature Source Temporal Artery Scan 11/06/17 04:15 Pulse 79 11/06/17 04:02 Pulse 79 11/06/17 04:02 Respiratory Rate 15 11/06/17 04:02 Respiratory Effort 11/06/17 04:15 Respiratory Depth Normal 11/06/17 04:15 Respiratory Pattern Normal 11/06/17 04:15 Blood Pressure 117/50 L 11/06/17 04:02 Blood Pressure Mean 66 11/06/17 04:02 Blood Pressure Position Supine 11/06/17 00:10 Pulse Oximetry 94 L 11/06/17 07:30 Oxygen Delivery Method Nasal Cannula 11/06/17 07:30 Oxygen Flow Rate 1 11/06/17 07:30 Fraction of Inspired Oxygen (FIO2) 30 11/05/17 18:20 Pain Level 7 11/06/17 12:20 Intake & Output 11/05/17 11/06/17 11/06/17 23:59 11:59 23:59 Intake Total 2350 / 2350 1740 / 1740 250 / 250 Output Total 800 / 800 900 / 900 Balance 1550 / 1550 840 / 840 250 / 250 Weight 64 kg 60.8 kg Intake: IV 2350 / 2350 1620 / 1620 250 / 250 Oral 120 / 120 Output: Urine 800 / 800 900 / 900 Other: Urine Color Yellow Pale Straw Yellow Urine Appearance Clear Clear Comment Palomares in place with clear yellow urine. Stool Size Small Stool Characteristics Soft Brown Laboratory Results WBC 12.29 k/cumm (4.4-10.8) H 11/06/17 06:20 RBC 2.62 m/cumm (4.00-5.20) L 11/06/17 06:20 Hgb 8.8 g/dL (12.0-15.5) L 11/06/17 06:20 Hct 27.8 % (36.0-46.0) L 11/06/17 06:20 MCV 106.1 fL (80-95) H 11/06/17 06:20 MCH 33.6 pg (27.0-33.0) H 11/06/17 06:20 MCHC 31.7 g/dL (32.0-36.0) L 11/06/17 06:20 RDW 14.7 % (11.7-14.6) H 11/06/17 06:20 Plt Count 204 x1000/uL (130-400) 11/06/17 06:20 MPV 10.3 fL (8.0-11.0) 11/06/17 06:20 Immature Gran % 0.3 11/05/17 17:33 Neutrophils % 85.7 11/05/17 17:33 Lymphocytes % 4.3 11/05/17 17:33 Monocytes % 8.2 11/05/17 17:33 Eosinophils % 1.4 11/05/17 17:33 Basophils % 0.1 11/05/17 17:33 Absolute Neutrophils 10.86 k/cumm (1.2-6.7) H 11/05/17 17:33 Absolute Lymphocytes 0.54 k/cumm (1.2-3.4) L 11/05/17 17:33 Absolute Monocytes 1.04 k/cumm (0.11-0.7) H 11/05/17 17:33 Absolute Eosinophils 0.18 k/cumm (0.0-0.7) 11/05/17 17:33 Absolute Basophils 0.01 k/cumm (0.0-0.2) 11/05/17 17:33 VBG pH 7.44 (7.32-7.43) H 11/05/17 20:55 VBG pCO2 40 mm/Hg (34-47) 11/05/17 20:55 VBG pO2 138 mm/Hg (28-44) H 11/05/17 20:55 VBG HCO3 27 mmol/L (22-28) 11/05/17 20:55 VBG Total CO2 Not Applicable 11/05/17 20:55 VBG O2 Saturation > 99 % (70-80) H 11/05/17 20:55 VBG Base Excess 2.9 mmol/L (-3-3) 11/05/17 20:55 Sodium 139 mmol/L (136-145) 11/06/17 06:20 Potassium 4.8 mmol/L (3.5-5.1) 11/06/17 06:20 Chloride 105 mmol/L (98-107) 11/06/17 06:20 Carbon Dioxide 24.1 mmol/L (21.0-32.0) 11/06/17 06:20 Anion Gap 9.9 mmol/L (3-11) 11/06/17 06:20 BUN 21 mg/dL (7-18) H 11/06/17 06:20 Creatinine 0.82 mg/dL (0.55-1.02) 11/06/17 06:20 Estimated GFR/1.73 m2 >= 60.00 (mL/min/1.73m2) 11/06/17 06:20 Glucose 157 mg/dL (70-100) H 11/06/17 06:20 Lactate 1.2 mmol/L (0.6-1.4) 11/06/17 09:00 Calcium 8.6 mg/dL (8.5-10.1) 11/06/17 06:20 Iron 9 ug/dL (50-175) L 11/06/17 09:00 TIBC 176 ug/dL (250-450) L 11/06/17 09:00 Transferrin % Sat 5 % (15-50) L 11/06/17 09:00 Ferritin 146 ng/mL (8-388) 11/06/17 09:00 Total Bilirubin 0.4 mg/dL (0.2-1.0) 11/06/17 06:20 AST 118 U/L (15-37) H 11/06/17 06:20 ALT 120 U/L (12-78) H 11/06/17 06:20 Alkaline Phosphatase 138 U/L (46-116) H 11/06/17 06:20 Troponin I < 0.02 ng/mL (0.00-0.06) 11/05/17 17:33 Total Protein 4.9 g/dL (6.4-8.2) L 11/06/17 06:20 Albumin 2.0 g/dL (3.4-5.0) L 11/06/17 06:20 Vitamin B12 843 pg/mL (193-986) 11/06/17 09:00 Folate > 20.0 ng/mL (8.6-20.0) H 11/06/17 09:00 TSH Cancelled 11/05/17 17:34 Urine Color Yellow (Yellow) 11/05/17 18:21 Urine Clarity Clear 11/05/17 18:21 Urine pH 5.5 (5-8) 11/05/17 18:21 Ur Specific Thatcher 1.015 (1.005-1.025) 11/05/17 18:21 Urine Protein 100 mg/dL (Negative) H 11/05/17 18:21 Urine Ketones Negative mg/dL (Negative) 11/05/17 18:21 Urine Blood Trace-intact (Negative) H 11/05/17 18:21 Urine Nitrite Negative (Negative) 11/05/17 18:21 Urine Bilirubin Negative (Negative) 11/05/17 18:21 Urine Urobilinogen 0.2 EU/dL (Up TO 0.2) 11/05/17 18:21 Ur Leukocyte Esterase Negative (Negative) 11/05/17 18:21 Urine RBC Negative (0-2) 11/05/17 18:21 Urine WBC 5-10 HPF (0-5) 11/05/17 18:21 Ur Epithelial Cells Few HPF (Negative) 11/05/17 18:21 Urine Crystals Few amorphous HPF (Negative) 11/05/17 18:21 Urine Bacteria Negative HPF (Negative) 11/05/17 18:21 Urine Casts 3-5 hyaline LPF (Negative) 11/05/17 18:21 Urine Mucus Negative (Negative) 11/05/17 18:21 Ur Culture Indicated? C&s done as ordered 11/05/17 18:21 Urine Glucose Negative mg/dL (Negative) 11/05/17 18:21 Objective Narrative Objective Narrative: EXAM: CT Angiography Chest With Intravenous Contrast EXAM DATE/TIME: 11/05/2017 5:41 PM IMPRESSION: No evidence of pulmonary embolus. Arteriosclerotic changes of the aorta. Left lower lobe infiltrate. Osseous findings as above. IVC filter. Cholelithiasis. Stimulator as above.
[2017-11-06] MEDS: Normal Saline 1,000 ML 125 ML IV ×2 (13:29→22:00)
--- NOTE | 2017-11-06 15:03 | CHAPLAIN ---
Ashia was in bed when I visited. She told me that she was raised Christianity, but after she was she attended Mu[employer] churches because her did not like the Christianity Confucianist. She raised her children in the [employer] Confucianist and attends a small [employer] religion in [place] that is only open in the summer. She has not been able to attend much in recent years because of health issues, but considers that her religion and her grandchildren were baptized there. Ashia told me about her unexpected a year and a half ago, when they were in [place], and how she has been handling that. She said thanks for stopping in when Dietary arrived to take her meal request, so I left. I'll check in on her tomorrow.
[2017-11-06] MEDS: Normal Saline Flush 10 ML SYR IVP (15:44)
[2017-11-06] MEDS: Metoprolol 25 MG TAB PO (20:21)
[2017-11-06] MEDS: Calcium 600mg/Vit D 200U TAB 1 TAB PO (20:21)
[2017-11-06] MEDS: VANCOMYCIN 750 MG in Normal Saline 250 ML 166.666 MG IVPB (21:43)
[2017-11-06] MEDS: LORazepam 0.5 MG TAB PO (23:08)
[2017-11-06] MEDS: Atorvastatin 10 MG TAB PO (23:09)
[2017-11-06] MEDS: Acetaminophen 325 MG TAB PO (23:34)
[2017-11-07] VITALS (31 sets, daily range): BP systolic 122–147; BP diastolic 51–76; PULSE 59–86; RESP 13–22; TEMP 36–37.3; O2SAT 90–98
[2017-11-07] MEDS: oxyCODONE 15 MG TAB PO ×5 (05:03→23:29)
[2017-11-07] MEDS: Normal Saline 1,000 ML 125 ML IV (07:00)
[2017-11-07 07:12] LABS: Abs Immature Grans 0.04 k/cumm (0.0-0.09); Absolute Lymphocyte Count 0.47 k/cumm (1.2-3.4); Absolute Monocyte Count 0.47 k/cumm (0.11-0.7); Absolute Neutrophil Count 9.14 k/cumm (1.2-6.7); HCT 22.8 % (36.0-46.0); HGB 7.2 g/dL (12.0-15.5); Immature Grans % 0.4; Lymphocytes % 4.6; Mean Corp. HGB Concentration 31.6 g/dL (32.0-36.0); Mean Corpuscular Hemoglobin 33.3 pg (27.0-33.0); Mean Corpuscular Volume 105.6 fL (80-95); Mean Platelet Volume 10.3 fL (8.0-11.0); Monocytes % 4.6; Neutrophils % 90.4; Platelet Count 212 x1000/uL (130-400); RBC 2.16 m/cumm (4.00-5.20); RBC Distribution Width 14.6 % (11.7-14.6); White Blood Cell Count 10.12 k/cumm (4.4-10.8)
[2017-11-07 07:23] LABS: Anion Gap 7.6 mmol/L (3-11); BUN 24 mg/dL (7-18); CO2 23.4 mmol/L (21.0-32.0); Calcium 8.2 mg/dL (8.5-10.1); Chloride 109 mmol/L (98-107); Glucose 139 mg/dL (70-100); Sodium 140 mmol/L (136-145)
[2017-11-07 07:34] LABS: ALT 86 U/L (12-78); AST 60 U/L (15-37); Albumin 1.8 g/dL (3.4-5.0); Alkaline Phosphatase 103 U/L (46-116); Bilirubin, Direct 0.08 mg/dL (0.00-0.20); Bilirubin, Total 0.2 mg/dL (0.2-1.0); Total Protein 5.1 g/dL (6.4-8.2)
--- NOTE | 2017-11-07 08:31 | PDOC.CMPRO ---
Care Management Progress Note S/O: Ashia was lying in bed when BARTOLO met with her. She reviewed events leading up to her admission at [facility], and reported her daughter, Sol would be her person of contact; [phone]. She reported she was looking forward to going to [facility] upon discharge. CM requested insurance information be faxed to this newspaper writer from [facility] as [facility] Access is reporting no current insurance information for Ashia. BARTOLO met with Dr. Morton and Baron of [facility]. Dr Morton reported Ashia would require five to seven days of IV ABX and would likely remain at [facility] through 11/12/17. She did begin working with PT this morning and will continue until discharge as there had been a planned SNF skilled stay at [facility] prior to her admission at [facility] due to recent patellar fracture s/p surgical repair at [facility]. A: 77 year old female admitted to [facility] for Tachycardia, sepsis syndrome, institution acquired pneumonia P: Ashia will return to [facility] for a skilled stay when medically ready and the facility will manage her further service and equipment needs. She will transport via [facility].
[2017-11-07] MEDS: CEFEPIME 2 GM in Normal Saline 100 ML IVPB ×2 (08:38→16:38)
--- NOTE | 2017-11-07 08:41 | CMPROGNOTE_ITS ---
Care Management Progress Note S/O: Ashia was lying in bed when BARTOLO met with her. She reviewed events leading up to her admission at [facility], and reported her daughter, Sol would be her person of contact; [phone]. She reported she was looking forward to going to [facility] upon discharge. CM requested insurance information be faxed to this development writer from [facility] as [facility] Access is reporting no current insurance information for Ashia. BARTOLO met with Dr. Morton and Baron of [facility]. Dr Morton reported Ashia would require five to seven days of IV ABX and would likely remain at [facility] through 11/12/17. She did begin working with PT this morning and will continue until discharge as there had been a planned SNF skilled stay at [facility] prior to her admission at [facility] due to recent patellar fracture s/p surgical repair at [facility]. A: 77 year old female admitted to [facility] for Tachycardia, sepsis syndrome, institution acquired pneumonia P: Ashia will return to [facility] for a skilled stay when medically ready and the facility will manage her further service and equipment needs. She will transport via [facility].
[2017-11-07] MEDS: Gabapentin 400 MG CAP PO ×3 (09:40→19:40)
--- NOTE | 2017-11-07 09:44 | PT.INIE ---
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 Pt currently at [facility] after stay at [facility] for recovery after left patella fracture. Equipment Owned/DME: cane, FWW, transport chair Subjective: Pt lying in bed, agreeable to PT consult. States she does not remember what the doctor told her regarding her leg or mobility, reports she had only performed transfers and [facility] and had not started walking yet. Pt is hoping to be able to discharge to rehab facility once medically stable so she can receive rehab prior to returning to home setting. States she has a hard time moving around due to her chronic pain and arthritis. Objective: General Observation: maldonado catheter, telemetry, L UE IV, 2 liters 02 NC, hinged knee brace left knee locked at 0 degrees, nader wrap left LE Mental Status: A& O x3 Pain: no c/o pain ROM: Right Upper Extremity: AAROM shoulder flexion 95, elbow and wrist WNL, arthritis in fingers Left Upper Extremity: AAROM shoulder flexion 100, elbow and wrist WNL, arthritis in fingers Right Lower Extremity: AAROM hip flexion to 100, knee and ankle WNL, arthritis in feet/toes Left Lower Extremity: AAROM hip flexion 90, knee NT due to locked brace, ankle WNL, arthritis feet/toes Strength: Right Upper Extremity: shoulder flexion 2/5. bicep 3/5, air traffic controller 4/5 Left Upper Extremity: shoulder flexion 2/5, bicep 3/5, air traffic controller 3/5 Right Lower Extremity: hip flexion 2/5, quad 3/5, DF/PF 5/5 Left Lower Extremity: hip and knee NT, DF/PF 4/5 Bed Mobility/Transfers: * hinged knee brace on for all transfers -0 degrees Supine-sit: HOB 40 maxA for trunk to sitting and legs to edge of bed using bedpad Sit-stand: MinAx1 with FWW Bed-chair: minAx1 with FWW Stand-sit: minAx1 for L LE Gait: * hinged knee brace on for all transfers -0 degrees MinAx1 with FWW, WBAT L LE 3 ft bed to recliner chair. Pt left up in chair with legs elevated Balance: Static Sitting: normal Dynamic Sitting: normal Static Standing: fair Dynamic Standing: fair Special Tests: Mobility Limitations Standardized Measure [facility] 6 clicks Basic Mobility Inpatient Short Form: Raw Score: 11 Standardized Score: 33.86 CMS Score: 72.57% CMS Modifier: CL Informed Consent/Education: Patient instructed in purpose of PT consult and plan of care. 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 Patient presents with the following impairment level findings: left knee limited ROM with use of hinged knee brace 0 degrees s/p patella fracture, decreased strength L LE s/p patella fracture, decreased strength with bed mobility and transfers requiring assist of one person due to patella fx and co-morbidities of arthritis and chronic pain, decreased gait mobility requiring FWW and one person assist to mobilize to chair and perform gait limited distances in room, decreased static and dynamic standing balance putting her at risk for falls. Pt would benefit from skilled therapy intervention for strengthening and progressive mobility training. Recommend manager intermediate care facility for rehab prior to return to home setting. Impairments are contributing to the following functional limitations: AMPAC score CMS Score: 72.57% Patient is assessed as a High 56967 complexity based on the following: History: see above Examination:see above Presentation: evolving Decision Making: AMPAC score CMS Score: 72.57% Goals: Goals X1 week 1. Supine-Sit minAx1 2. Sit-Supine minAx1 3. Sit-Stand SBA with FWW, hinged brace 4. Stand-Sit SBA 5. Bed-Chair CGA with FWW, hinged brace 6. Chair-Bed CGA with FWW hinged brace 7. Gait CGA with FWW, hinged knee brace, 30ftx2 WBAT L LE Plan of Care/Treatment Plan: 1-2x/day, 7 days/week x 1 week. Plan of care has been reviewed with the WOOL AND PELT GRADER providing the service under Physical Therapy direction. Initiate Physical Therapy intervention for strengthening, bed mobility, transfers, gait, stairs, balance training, use of assistive device. DISCHARGE RECOMMENDATIONS: terminal gauger supervisor care facility for rehab prior to return to home TREATMENT CODE/TIME: 35 min IE 9:42 G Codes in the area mobility of walking and moving around: current status [id number] CL; projected status GP [id number]. Discharge status (if discharging) GP [id number] CL in setting of AMPAC score CMS Score: 72.57% Marilee Dawson PT
[2017-11-07] MEDS: Calcium 600mg/Vit D 200U TAB 1 TAB PO ×2 (09:49→19:40)
[2017-11-07] MEDS: Aspirin E.C. 81 MG TABEC PO (09:49)
[2017-11-07] MEDS: amLODIPine 5 MG TAB PO (09:49)
[2017-11-07] MEDS: Multivitamin TAB 1 TAB PO (09:50)
[2017-11-07] MEDS: Heparin 5,000 UNITS/ML VIAL 5000 UNITS SC ×2 (09:50→23:15)
[2017-11-07] MEDS: Allopurinol 300 MG TAB PO ×2 (09:50→19:40)
[2017-11-07] MEDS: Folic Acid 1 MG TAB PO (09:50)
[2017-11-07] MEDS: Pantoprazole 20 MG TABCR PO (09:50)
[2017-11-07] MEDS: Metoprolol 25 MG TAB PO ×2 (09:50→19:40)
[2017-11-07] MEDS: Hydrocortisone SOD SUC. 100 MG VIAL 50 MG IVP ×2 (09:51→22:37)
--- NOTE | 2017-11-07 09:53 | IN_ITS ---
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 Pt currently at [facility] after stay at [facility] for recovery after left patella fracture. Equipment Owned/DME: cane, FWW, transport chair Subjective: Pt lying in bed, agreeable to PT consult. States she does not remember what the doctor told her regarding her leg or mobility, reports she had only performed transfers and [facility] and had not started walking yet. Pt is hoping to be able to discharge to rehab facility once medically stable so she can receive rehab prior to returning to home setting. States she has a hard time moving around due to her chronic pain and arthritis. Objective: General Observation: maldonado catheter, telemetry, L UE IV, 2 liters 02 NC, hinged knee brace left knee locked at 0 degrees, nader wrap left LE Mental Status: A& O x3 Pain: no c/o pain ROM: Right Upper Extremity: AAROM shoulder flexion 95, elbow and wrist WNL, arthritis in fingers Left Upper Extremity: AAROM shoulder flexion 100, elbow and wrist WNL, arthritis in fingers Right Lower Extremity: AAROM hip flexion to 100, knee and ankle WNL, arthritis in feet/toes Left Lower Extremity: AAROM hip flexion 90, knee NT due to locked brace, ankle WNL, arthritis feet/toes Strength: Right Upper Extremity: shoulder flexion 2/5. bicep 3/5, vinyl cutter 4/5 Left Upper Extremity: shoulder flexion 2/5, bicep 3/5, vinyl cutter 3/5 Right Lower Extremity: hip flexion 2/5, quad 3/5, DF/PF 5/5 Left Lower Extremity: hip and knee NT, DF/PF 4/5 Bed Mobility/Transfers: * hinged knee brace on for all transfers -0 degrees Supine-sit: HOB 40 maxA for trunk to sitting and legs to edge of bed using bedpad Sit-stand: MinAx1 with FWW Bed-chair: minAx1 with FWW Stand-sit: minAx1 for L LE Gait: * hinged knee brace on for all transfers -0 degrees MinAx1 with FWW, WBAT L LE 3 ft bed to recliner chair. Pt left up in chair with legs elevated Balance: Static Sitting: normal Dynamic Sitting: normal Static Standing: fair Dynamic Standing: fair Special Tests: Mobility Limitations Standardized Measure [facility] 6 clicks Basic Mobility Inpatient Short Form: Raw Score: 11 Standardized Score: 33.86 CMS Score: 72.57% CMS Modifier: CL Informed Consent/Education: Patient instructed in purpose of PT consult and plan of care. 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 Patient presents with the following impairment level findings: left knee limited ROM with use of hinged knee brace 0 degrees s/p patella fracture, decreased strength L LE s/p patella fracture, decreased strength with bed mobility and transfers requiring assist of one person due to patella fx and co- morbidities of arthritis and chronic pain, decreased gait mobility requiring FWW and one person assist to mobilize to chair and perform gait limited distances in room, decreased static and dynamic standing balance putting her at risk for falls. Pt would benefit from skilled therapy intervention for strengthening and progressive mobility training. Recommend [facility]ci care facility for rehab prior to return to home setting. Impairments are contributing to the following functional limitations: AMPAC score CMS Score: 72.57% Patient is assessed as a High [id number] complexity based on the following: History: see above Examination:see above Presentation: evolving Decision Making: AMPAC score CMS Score: 72.57% Goals: Goals X1 week 1. Supine-Sit minAx1 2. Sit-Supine minAx1 3. Sit-Stand SBA with FWW, hinged brace 4. Stand-Sit SBA 5. Bed-Chair CGA with FWW, hinged brace 6. Chair-Bed CGA with FWW hinged brace 7. Gait CGA with FWW, hinged knee brace, 30ftx2 WBAT L LE Plan of Care/Treatment Plan: 1-2x/day, 7 days/week x 1 week. Plan of care has been reviewed with the PERMIT AGENT providing the service under Physical Therapy direction. Initiate Physical Therapy intervention for strengthening, bed mobility, transfers, gait, stairs, balance training, use of assistive device. DISCHARGE RECOMMENDATIONS: halfway care facility for rehab prior to return to home TREATMENT CODE/TIME: 35 min IE 9:42 G Codes in the area mobility of walking and moving around: current status [id number] CL; projected status GP [id number]. Discharge status (if discharging) GP [id number] CL in setting of AMPAC score CMS Score: 72.57% Marilee Dawson PT
[2017-11-07] MEDS: VANCOMYCIN 750 MG in Normal Saline 250 ML 166.666 MG IVPB ×2 (10:27→22:38)
[2017-11-07 10:57] LABS: Campylobacter PCR SEE COMMENTS; Salmonella PCR SEE COMMENTS; Shiga Toxin PCR SEE COMMENTS; Shigella/Enteroinvasive Ecoli SEE COMMENTS
[2017-11-07] MEDS: Acetaminophen 325 MG TAB PO ×2 (13:10→17:07)
[2017-11-07] MEDS: Pantoprazole 40 MG VIAL IVP (13:11)
[2017-11-07] MEDS: Normal Saline Flush 10 ML SYR IVP ×2 (13:11→23:13)
[2017-11-07 14:27] LABS: HCT 22.4 % (36.0-46.0); HGB 7.2 g/dL (12.0-15.5)
--- NOTE | 2017-11-07 14:28 | PGE_ITS ---
Date of service: 11/07/17 Time of Service: 14:17 Assessment and Plan (1) Left lower lobe pneumonia: Current visit: Yes Status: Acute Treat as HCAP given recent hospitalization - Day #3 Vancomycin and Cefepime. Blood Cultures negative X 24 hours, and Sputum Culture pending at this time. (2) Sepsis syndrome: Current visit: Yes Status: Acute Based on elevated temperature, RR, HR, WBC, and known pulmonary source - patient appears vastly improved and now with normalized lactate. Sepsis appears resolved. Discontinue IVFs, continue antibiotic therapy, and await culture results. Also on Stress dose steroids due to chronic low dose prednisone use - decrease dose now. (3) Aortic stenosis: Current visit: Yes Status: Chronic Severe but asymptomatic with intact LVEF by review of outside hospital records. Continue to monitor fluid status and blood pressure, both currently reasonable. Diuretic therapy is on hold. Also on BB, ASA, and statin as part of home meds. Discontinue IVFs today and plan on reinitiation of lasix soon. (4) Rheumatoid arthritis: Current visit: Yes Status: Chronic Continue MTx. Low dose daily prednisone on hold in light of stress dosed steroids. (5) Hypertension: Current visit: Yes Status: Chronic Holding CCB in setting of acute sepsis. Continue low dose BB with strict hold parameters. Blood Pressure reasonable currently. (6) Dyslipidemia: Current visit: Yes Status: Acute Currently on low dose high potency statin therapy. (7) Chronic pain: Current visit: Yes Status: Chronic On the basis of RA. Currently on Gabapentin and Oxycodone. (8) Anemia: Current visit: Yes Status: Chronic Low iron, but also low TIBC and normal ferritin. Likely Anemia of Chronic Disease with potential concurrent blood loss. Heme + stool today. B12, FA, and TSH also checked and normal. Continue PPI therapy. Hemoglobin dropped today in setting of hydration - recheck this afternoon. Monitor closely. (9) Diarrhea: Current visit: Yes Status: Acute Potentially on basis of antibiotic side-effect. C. Diff checked and negative. Fecal Leukocytes negative as well. Awaiting stool cultures. (10) DVT prophylaxis: Current visit: Yes Status: Acute SC Heparin. Subjective Interval history since last seen: 77 year old woman with a past medical history significant for RA on Methotrexate and daily Prednisone, Aortic Stenosis quantified as 'severe' by review of outside records, History of PE s/p IVC filter placement presents to [facility] department with reported fevers. Mrs. Montero was recently hospitalized at [facility] for repair of a left Patella fracture on 11/01/2017. She also underwent treatment for a UTI (Proteus Mirabilis, sensitive to CTx & FQ's), and underwent clearance for surgical intervention due to her history of Aortic Stenosis (Patient's Animated Cartoons Painter is Dr. Malave). She spent a total of 4 days in the hospital. Following treatment she was discharged to a Half-Way Facility. Shortly after arrival at [facility] she was noted to have a significant fever with rigors, and was brought to the emergency department for further evaluation. Work-up in the ED included evidence of Tachycardia, elevated Lactic Acid, Leukocytosis, and a LLL Infiltrate by CT. She was diagnosed with Sepsis on the basis of HCAP, and admitted to the hospital. By the following morning the patient appeared vastly improved, with resolved Tachycardia and normalized Lactic Acid. Her minimal leukocytosis has resolved as well. She reports continued but improved symptoms overall. However, noted to have loose stools yesterday, and with a dropping hemoglobin now in the 7's. Her stool was checked and Heme +. She remains afebrile. Exam Narrative Exam Narrative: General: Patient appears comfortable lying in bed, AAOX3, NAD Neck: Supple CV: Regular, nontachycardic, S1S2, 3/6 harsh BILL best appreciated RUSB. Pulmonary: Left basilar rhonchi without wheezing, bibasilar crackles. Abdomen: + Bowel Sounds, soft, nontender, nondistended Vascular: B/l LE lower extremity edema Extremities: Deformities the majority of inspected joints. No clubbing, no cyanosis. Neurologic: CN II-XII grossly intact. No focal deficits. Psych: Normal mood and affect. Objective Objective Clinical Data: Abnormal lab results 11/07/17 11/07/17 11/07/17 Range/Units 06:15 06:15 06:15 RBC 2.16 L (4.00-5.20) m/cumm Hgb 7.2 L (12.0-15.5) g/dL Hct 22.8 L (36.0-46.0) % MCV 105.6 H (80-95) fL MCH 33.3 H (27.0-33.0) pg MCHC 31.6 L (32.0-36.0) g/dL Absolute Neutrophils 9.14 H (1.2-6.7) k/cumm Absolute Lymphocytes 0.47 L (1.2-3.4) k/cumm Chloride 109 H (98-107) mmol/L BUN 24 H (7-18) mg/dL Glucose 139 H (70-100) mg/dL Calcium 8.2 L (8.5-10.1) mg/dL AST 60 H (15-37) U/L ALT 86 H (12-78) U/L Total Protein 5.1 L (6.4-8.2) g/dL Albumin 1.8 L (3.4-5.0) g/dL Vital Signs Temperature 36.0 C L 11/07/17 13:15 Temperature Source Temporal Artery Scan 11/07/17 13:15 Pulse 76 11/07/17 08:42 Pulse 73 11/07/17 09:00 Respiratory Rate 16 11/07/17 09:00 Respiratory Effort 11/07/17 13:15 Respiratory Depth Normal 11/07/17 13:15 Respiratory Pattern Normal 11/07/17 13:15 Blood Pressure 125/51 L 11/07/17 08:42 Blood Pressure Mean 70 11/07/17 08:42 Blood Pressure Position Sitting 11/07/17 04:00 Pulse Oximetry 98 11/07/17 11:12 Oxygen Delivery Method Nasal Cannula 11/07/17 13:15 Oxygen Flow Rate 1 11/07/17 13:15 Fraction of Inspired Oxygen (FIO2) 30 11/05/17 18:20 Pain Level 7 11/07/17 10:09 Comment 11/07/17 11:12 Intake & Output 11/06/17 11/07/17 11/07/17 23:59 11:59 23:59 Intake Total 2700 / 2700 560.416 / 560.416 Output Total 1050 / 1050 375 / 375 Balance 1650 / 1650 185.416 / 185.416 Weight 60.8 kg Intake: IV 2310 / 2310 410.416 / 410.416 Oral 390 / 390 150 / 150 Output: Urine 1050 / 1050 375 / 375 Other: Urine Color Yellow Yellow Urine Appearance Clear Clear Comment Indwelling maldonado w/clear yellow urine QS. Maldonado draining clear yello urine. Stool Occult Blood Negative Negative Stool Size Moderate Large Large Stool Characteristics Soft Soft Liquid Formed Formed Brown Brown Brown Laboratory Results WBC 10.12 k/cumm (4.4-10.8) 11/07/17 06:15 RBC 2.16 m/cumm (4.00-5.20) L 11/07/17 06:15 Hgb 7.2 g/dL (12.0-15.5) L 11/07/17 06:15 Hct 22.8 % (36.0-46.0) L 11/07/17 06:15 MCV 105.6 fL (80-95) H 11/07/17 06:15 MCH 33.3 pg (27.0-33.0) H 11/07/17 06:15 MCHC 31.6 g/dL (32.0-36.0) L 11/07/17 06:15 RDW 14.6 % (11.7-14.6) 11/07/17 06:15 Plt Count 212 x1000/uL (130-400) 11/07/17 06:15 MPV 10.3 fL (8.0-11.0) 11/07/17 06:15 Immature Gran % 0.4 11/07/17 06:15 Neutrophils % 90.4 11/07/17 06:15 Lymphocytes % 4.6 11/07/17 06:15 Monocytes % 4.6 11/07/17 06:15 Eosinophils % 0.0 11/07/17 06:15 Basophils % 0.0 11/07/17 06:15 Absolute Neutrophils 9.14 k/cumm (1.2-6.7) H 11/07/17 06:15 Absolute Lymphocytes 0.47 k/cumm (1.2-3.4) L 11/07/17 06:15 Absolute Monocytes 0.47 k/cumm (0.11-0.7) 11/07/17 06:15 Absolute Eosinophils 0.00 k/cumm (0.0-0.7) 11/07/17 06:15 Absolute Basophils 0.00 k/cumm (0.0-0.2) 11/07/17 06:15 VBG pH 7.44 (7.32-7.43) H 11/05/17 20:55 VBG pCO2 40 mm/Hg (34-47) 11/05/17 20:55 VBG pO2 138 mm/Hg (28-44) H 11/05/17 20:55 VBG HCO3 27 mmol/L (22-28) 11/05/17 20:55 VBG Total CO2 Not Applicable 11/05/17 20:55 VBG O2 Saturation > 99 % (70-80) H 11/05/17 20:55 VBG Base Excess 2.9 mmol/L (-3-3) 11/05/17 20:55 Sodium 140 mmol/L (136-145) 11/07/17 06:15 Potassium 4.0 mmol/L (3.5-5.1) 11/07/17 06:15 Chloride 109 mmol/L (98-107) H 11/07/17 06:15 Carbon Dioxide 23.4 mmol/L (21.0-32.0) 11/07/17 06:15 Anion Gap 7.6 mmol/L (3-11) 11/07/17 06:15 BUN 24 mg/dL (7-18) H 11/07/17 06:15 Creatinine 0.80 mg/dL (0.55-1.02) 11/07/17 06:15 Estimated GFR/1.73 m2 >= 60.00 (mL/min/1.73m2) 11/07/17 06:15 Glucose 139 mg/dL (70-100) H 11/07/17 06:15 Lactate 1.2 mmol/L (0.6-1.4) 11/06/17 09:00 Calcium 8.2 mg/dL (8.5-10.1) L 11/07/17 06:15 Iron 9 ug/dL (50-175) L 11/06/17 09:00 TIBC 176 ug/dL (250-450) L 11/06/17 09:00 Transferrin % Sat 5 % (15-50) L 11/06/17 09:00 Ferritin 146 ng/mL (8-388) 11/06/17 09:00 Total Bilirubin 0.2 mg/dL (0.2-1.0) 11/07/17 06:15 Conjugated Bilirubin 0.08 mg/dL (0.00-0.20) 11/07/17 06:15 AST 60 U/L (15-37) H 11/07/17 06:15 ALT 86 U/L (12-78) H 11/07/17 06:15 Alkaline Phosphatase 103 U/L (46-116) 11/07/17 06:15 Troponin I < 0.02 ng/mL (0.00-0.06) 11/05/17 17:33 Total Protein 5.1 g/dL (6.4-8.2) L 11/07/17 06:15 Albumin 1.8 g/dL (3.4-5.0) L 11/07/17 06:15 Vitamin B12 843 pg/mL (193-986) 11/06/17 09:00 Folate > 20.0 ng/mL (8.6-20.0) H 11/06/17 09:00 TSH Cancelled 11/05/17 17:34 Urine Color Yellow (Yellow) 11/05/17 18:21 Urine Clarity Clear 11/05/17 18:21 Urine pH 5.5 (5-8) 11/05/17 18:21 Ur Specific [place] 1.015 (1.005-1.025) 11/05/17 18:21 Urine Protein 100 mg/dL (Negative) H 11/05/17 18:21 Urine Ketones Negative mg/dL (Negative) 11/05/17 18:21 Urine Blood Trace-intact (Negative) H 11/05/17 18:21 Urine Nitrite Negative (Negative) 11/05/17 18:21 Urine Bilirubin Negative (Negative) 11/05/17 18:21 Urine Urobilinogen 0.2 EU/dL (Up TO 0.2) 11/05/17 18:21 Ur Leukocyte Esterase Negative (Negative) 11/05/17 18:21 Urine RBC Negative (0-2) 11/05/17 18:21 Urine WBC 5-10 HPF (0-5) 11/05/17 18:21 Ur Epithelial Cells Few HPF (Negative) 11/05/17 18:21 Urine Crystals Few amorphous HPF (Negative) 11/05/17 18:21 Urine Bacteria Negative HPF (Negative) 11/05/17 18:21 Urine Casts 3-5 hyaline LPF (Negative) 11/05/17 18:21 Urine Mucus Negative (Negative) 11/05/17 18:21 Ur Culture Indicated? C&s done as ordered 11/05/17 18:21 Urine Glucose Negative mg/dL (Negative) 11/05/17 18:21
--- NOTE | 2017-11-07 15:38 | PT.INTREAT ---
Date of service: 11/07/17 Time of Service: 15:38 PT Notes Inpatient Physical Therapy Treatment Note Date: 11/07/17 PRECAUTIONS: WBAT on left, contact, knee brace at all times at 0 degrees extension SUBJECTIVE: Patient states that she does not want to get out of bed this afternoon, as she has had a busy afternoon and is really tired. Patient states that she would like to perform bed exercises this afternoon. OBJECTIVE: PAIN: No complaints of pain BED MOBILITY/TRANSFERS/GAIT: Patient refused out of bed. THEREX: Patient performed a lower extremity strengthening and stabilization program, as per flow sheet. Patient was able to tolerate a slight progression in her program, modifications made to repetitions are noted on flow sheet. Patient required rest breaks between exercises x2. ASSESSMENT: Patient tolerated a slight progression in her ther ex program this afternoon. Patient refused out of bed due to fatigue. Patient would benefit from continued participation in a strengthening program as well as continued gait and transfer training for improved ability to perform functional daily tasks. PLAN: Continue with PT's POC TREATMENT CODE/TIME: 25 minutes; TP x2
--- NOTE | 2017-11-07 16:13 | PHARADMIT ---
Addendum entered by Norris Alvarez III 11/12/17 14:10: Pharmacy Note Subjective Patient to return to [facility]. Thought was maybe today. Objective BP-176/69 pain: 810 K+3.5 SCr-0.92 H&H-8.5/27.1 Assessment IV ABX dc'd. PPi still IV BID Plan Awaiting return to [facility] when medically ready. Original Note: Addendum entered by Norris Alvarez III 11/09/17 16:37: Pharmacy Note Subjective Continues with heme + stools H&H-dowwn PPi & Carafate continue . MD described patient fluid balance as tenuous.. Objective VS-OK K+3.0 SCr-1.00 H&H-8.6/26.3 WBC-10.55 Plts-257 Having BMs Assessment Vancomycin & Cefepime continue (day-5). On low dose Lasix,K+ replaced by PO Plan Plan is for 7 day ABX course.... Original Note: Addendum entered by Norris Alvarez III 11/08/17 17:33: Pharmacy Note Subjective Patient having black stools, added IV Protonix and Carafate. Rec'd one unit of blood Objective VS-OK Lytes-OK H&H-8.9/27.3 (after transfusion) Plts-247 WBC-10.22 Assessment Vancomycin trough (23.3) dose adjusted. Cefepime continues for HCAP Plan Continue current treatment regimen Original Note: Admission Pharmacy Clinical Review TACHYCARDIA, SEPSIS SYUNDROME, INSTITUTION ACQUIRED PNEUMONIA Code Status Full Code Current Weight Wgt- 60.8 kg Renally Cleared and Narrow Therapeutic Index Meds CrCl~ 42.3 mL/min Meds-OK QTc Value / Action Taken na BP Control, Fever BP- 125/51 Tmax- 37.0C Electrolytes reviewed Na- 140 K+4.0 DVT Prophylaxis Heparin SQ Opiate Usage / Scheduled Bowel Regimen Ordered Yes Yes Plt/SCr for Heparin / Enoxaparin Plts-212 SCr-0.80 INR for Warfarin na H/H stable, WBC/Bands H&H- 7.2/22.4 WBC- 10.12 Antibiotic appropriateness Cefepime, Vancomycin Cultures and Sensitivities Blood-No growth, Sputum-Pending C-Diff-neg, Surgical ABX d/c within 24 hr na DM control / Insulin Dosing BG- 139 Heart Failure (Check EF%) (WALDEMAR's, B-Block, Diuretics) Norvasc, Lopressor IV to PO Switch No Home Meds Reviewed Yes Home Meds Not Ordered Calcium-D, Lasix, Prednisone Comments
[2017-11-07] MEDS: Amitriptyline 25 MG TAB PO (22:37)
[2017-11-07] MEDS: Atorvastatin 10 MG TAB PO (22:37)
[2017-11-08] VITALS (42 sets, daily range): BP systolic 110–173; BP diastolic 54–104; PULSE 54–84; RESP 11–27; TEMP 35.5–37.4; O2SAT 95–100
[2017-11-08] MEDS: CEFEPIME 2 GM in Normal Saline 100 ML IVPB ×4 (00:34→23:08)
[2017-11-08] MEDS: Acetaminophen 325 MG TAB PO (00:53)
[2017-11-08] MEDS: LORazepam 0.5 MG TAB PO ×2 (00:56→22:01)
[2017-11-08 07:27] LABS: Anion Gap 6.2 mmol/L (3-11); BUN 28 mg/dL (7-18); CO2 25.8 mmol/L (21.0-32.0); CREATININE 0.88 mg/dL (0.55-1.02); Calcium 8.2 mg/dL (8.5-10.1); Chloride 109 mmol/L (98-107); Glucose 142 mg/dL (70-100); Potassium 4.3 mmol/L (3.5-5.1); Sodium 141 mmol/L (136-145)
[2017-11-08 07:29] LABS: Abs Immature Grans 0.02 k/cumm (0.0-0.09); Absolute Lymphocyte Count 0.57 k/cumm (1.2-3.4); Absolute Monocyte Count 0.35 k/cumm (0.11-0.7); Absolute Neutrophil Count 9.28 k/cumm (1.2-6.7); HCT 22.1 % (36.0-46.0); Immature Grans % 0.2; Lymphocytes % 5.6; Mean Corp. HGB Concentration 31.7 g/dL (32.0-36.0); Mean Corpuscular Hemoglobin 33.5 pg (27.0-33.0); Mean Corpuscular Volume 105.7 fL (80-95); Mean Platelet Volume 10.2 fL (8.0-11.0); Monocytes % 3.4; Neutrophils % 90.8; Platelet Count 247 x1000/uL (130-400); RBC 2.09 m/cumm (4.00-5.20); RBC Distribution Width 14.4 % (11.7-14.6); White Blood Cell Count 10.22 k/cumm (4.4-10.8)
[2017-11-08] MEDS: oxyCODONE 15 MG TAB PO ×4 (07:36→22:03)
[2017-11-08 07:46] LABS: ALT 94 U/L (12-78); AST 58 U/L (15-37); Albumin 1.8 g/dL (3.4-5.0); Alkaline Phosphatase 94 U/L (46-116); Bilirubin, Total 0.2 mg/dL (0.2-1.0); Total Protein 5.1 g/dL (6.4-8.2)
--- NOTE | 2017-11-08 09:23 | PT.INTREAT ---
Date of service: 11/08/17 Time of Service: 09:23 PT Notes Inpatient Physical Therapy Treatment Note Date: 11/08/17 PRECAUTIONS: WBAT on L SUBJECTIVE: Ashia states that she feels a little tired today and is overwhelmed by the number of people that come in and out of her room throughout the day. OBJECTIVE: PAIN: Patient c/o pain in L LE with transfers BED MOBILITY/TRANSFERS Supine-sit: Min A with HOB at 30 degrees Sit-stand: Min A Stand-sit: CGA Bed-Chair: CGA GAIT Assistive Device: FWW Weight bearing: WBAT Assist: CGA Distance: 5' ASSESSMENT: Patient tolerated session with c/o increased fatigue. Patient continues to require assist for transfers and bed mobility. She would benefit from continued strengthening and gait and transfer training to improve ability to perform functional daily tasks. PLAN: Continue with PT's POC TREATMENT CODE/TIME: 25 minutes; TAx2
[2017-11-08] MEDS: Pantoprazole 40 MG VIAL IVP ×2 (09:58→21:22)
[2017-11-08] MEDS: Hydrocortisone SOD SUC. 100 MG VIAL 50 MG IVP (09:59)
[2017-11-08] MEDS: Normal Saline Flush 10 ML SYR IVP ×3 (09:59→21:23)
[2017-11-08] MEDS: Furosemide 20 MG TAB PO (10:05)
[2017-11-08] MEDS: Gabapentin 400 MG CAP PO ×3 (10:05→21:22)
[2017-11-08] MEDS: Acetaminophen 325 MG TAB 650 MG PO (10:05)
[2017-11-08] MEDS: Folic Acid 1 MG TAB PO (10:06)
[2017-11-08] MEDS: amLODIPine 5 MG TAB PO (10:06)
[2017-11-08] MEDS: Calcium 600mg/Vit D 200U TAB 1 TAB PO ×2 (10:06→21:22)
[2017-11-08] MEDS: Aspirin E.C. 81 MG TABEC PO (10:06)
[2017-11-08] MEDS: Multivitamin TAB 1 TAB PO (10:06)
[2017-11-08] MEDS: Metoprolol 25 MG TAB PO ×2 (10:06→21:21)
[2017-11-08] MEDS: Allopurinol 300 MG TAB PO ×2 (10:06→21:21)
[2017-11-08 10:16] LABS: Vancomycin, Trough 23.3 ug/mL (10.0-20.0)
[2017-11-08] MEDS: Sucralfate 1 GM TAB PO ×3 (11:30→21:22)
--- NOTE | 2017-11-08 12:07 | PGE_ITS ---
Assessment and Plan (1) Left lower lobe pneumonia: Current visit: Yes Status: Acute Treat as HCAP given recent hospitalization - Day #4 Vancomycin and Cefepime. Blood Cultures negative X 48 hours, and Sputum Culture pending unrevealing at this time. (2) Sepsis syndrome: Current visit: Yes Status: Acute Based on elevated temperature, RR, HR, WBC, and known pulmonary source - patient appears vastly improved and now with normalized lactate. Discontinued IVFs previously. Continue antibiotic therapy, and await culture results. Also on Stress dose steroids due to chronic low dose prednisone use - decrease dose today. Sepsis is resolved. (3) Aortic stenosis: Current visit: Yes Status: Chronic Severe but asymptomatic with intact LVEF by review of outside hospital records. Continue to monitor fluid status and blood pressure - currently appears volume overloaded by pulmonary exam. IVF's discontinued previously, and restart oral lasix now. Also receiving blood today - will ensure very slow transfusion, and recheck pulmonary exam later this afternoon. On BB, ASA, and statin as part of home meds. (4) Rheumatoid arthritis: Current visit: Yes Status: Chronic Continue MTx. Low dose daily prednisone on hold in light of stress dosed steroids. (5) Hypertension: Current visit: Yes Status: Chronic Holding CCB in setting of acute sepsis - will restart as blood pressure is adequate and elevating. Continue low dose BB with strict hold parameters. (6) Dyslipidemia: Current visit: Yes Status: Acute Currently on low dose high potency statin therapy. (7) Chronic pain: Current visit: Yes Status: Chronic On the basis of RA. Currently on Gabapentin and Oxycodone. (8) Anemia: Current visit: Yes Status: Chronic Low iron, but also low TIBC and normal ferritin. Likely Anemia of Chronic Disease with potential concurrent blood loss. Heme + stool as checked. B12, FA, and TSH also checked and normal. Patient is chronically on low dose daily prednisone, aspirin, and takes NSAID therapy secondary to her history of RA. Continue IV PPI therapy but change to BID dosing. Start Carafate Hemoglobin dropped again today. Will transfuse one unit slowly, and monitor hgb carefully. (9) Diarrhea: Current visit: Yes Status: Acute Potentially on basis of antibiotic side-effect. C. Diff checked and negative. Fecal Leukocytes negative as well. Awaiting stool cultures. (10) DVT prophylaxis: Current visit: Yes Status: Acute SC Heparin discontinued in setting of dropping hgb and Heme + stools. SCDs in place. Subjective Interval history since last seen: 77 year old woman with a past medical history significant for RA on Methotrexate and daily Prednisone, Aortic Stenosis quantified as 'severe' by review of outside records, History of PE s/p IVC filter placement presents to [facility] emergency department with reported fevers. Mrs. Montero was recently hospitalized at [facility] for repair of a left Patella fracture on 11/01/2017. She also underwent treatment for a UTI (Proteus Mirabilis, sensitive to CTx & FQ's), and underwent clearance for surgical intervention due to her history of Aortic Stenosis (Patient's [employer] Professor is Dr. Malave). She spent a total of 4 days in the hospital. Following treatment she was [facility]. Shortly after arrival at [facility] she was noted to have a significant fever with rigors, and was brought to the emergency department for further evaluation. Work-up in the ED included evidence of Tachycardia, elevated Lactic Acid, Leukocytosis, and a LLL Infiltrate by CT. She was diagnosed with Sepsis on the basis of HCAP, and admitted to the hospital. By the following morning the patient appeared vastly improved, with resolved Tachycardia and normalized Lactic Acid. Her minimal leukocytosis has resolved as well. She reports continued but improved symptoms overall. However, noted to have loose stools previously, and with a dropping hemoglobin now at 7. Her stool was checked and Heme +. She remains afebrile. Exam Narrative Exam Narrative: General: Patient appears comfortable lying in bed, AAOX3, NAD Neck: Supple CV: Regular, nontachycardic, S1S2, 3/6 harsh BILL best appreciated RUSB. Pulmonary: Left basilar crackles with decreased breath sounds. Right sided crackles mildly worsened. Abdomen: + Bowel Sounds, soft, nontender, nondistended Vascular: B/l LE lower extremity edema Extremities: Deformities the majority of inspected joints. No clubbing, no cyanosis. Psych: Normal mood and affect. Objective Objective Clinical Data: Abnormal lab results 11/07/17 11/07/17 11/08/17 Range/Units 06:15 14:20 06:27 RBC (4.00-5.20) m/cumm Hgb 7.2 L (12.0-15.5) g/dL Hct 22.4 L (36.0-46.0) % MCV (80-95) fL MCH (27.0-33.0) pg MCHC (32.0-36.0) g/dL Absolute Neutrophils (1.2-6.7) k/cumm Absolute Lymphocytes (1.2-3.4) k/cumm Chloride 109 H (98-107) mmol/L BUN 28 H (7-18) mg/dL Glucose 142 H (70-100) mg/dL Calcium 8.2 L (8.5-10.1) mg/dL AST (15-37) U/L ALT (12-78) U/L Total Protein (6.4-8.2) g/dL Albumin (3.4-5.0) g/dL Vancomycin Trough (10.0-20.0) ug/mL Crossmatch See Detail 11/08/17 11/08/17 11/08/17 Range/Units 06:27 06:27 09:30 RBC 2.09 L (4.00-5.20) m/cumm Hgb 7.0 L (12.0-15.5) g/dL Hct 22.1 L (36.0-46.0) % MCV 105.7 H (80-95) fL MCH 33.5 H (27.0-33.0) pg MCHC 31.7 L (32.0-36.0) g/dL Absolute Neutrophils 9.28 H (1.2-6.7) k/cumm Absolute Lymphocytes 0.57 L (1.2-3.4) k/cumm Chloride (98-107) mmol/L BUN (7-18) mg/dL Glucose (70-100) mg/dL Calcium (8.5-10.1) mg/dL AST 58 H (15-37) U/L ALT 94 H (12-78) U/L Total Protein 5.1 L (6.4-8.2) g/dL Albumin 1.8 L (3.4-5.0) g/dL Vancomycin Trough 23.3 H* (10.0-20.0) ug/mL Crossmatch Vital Signs Temperature 36.1 C L 11/08/17 11:51 Temperature Source Tympanic 11/08/17 11:40 Pulse 68 11/08/17 11:51 Pulse 55 L 11/08/17 06:01 Respiratory Rate 19 11/08/17 11:51 Respiratory Effort 11/08/17 11:40 Respiratory Depth Normal 11/08/17 08:30 Respiratory Pattern Normal 11/08/17 04:00 Blood Pressure 141/77 H 11/08/17 11:51 Blood Pressure Mean 80 11/08/17 06:01 Blood Pressure Position Supine 11/08/17 04:00 Pulse Oximetry 99 11/08/17 11:51 Oxygen Delivery Method Nasal Cannula 11/08/17 11:51 Oxygen Flow Rate 1 11/08/17 11:51 Fraction of Inspired Oxygen (FIO2) 30 11/05/17 18:20 Pain Level 8 11/08/17 11:40 Comment 11/07/17 11:12 Intake & Output 11/07/17 11/08/17 11/08/17 23:59 11:59 23:59 Intake Total 830 / 830 1530 / 1530 Output Total 500 / 500 950 / 950 Balance 330 / 330 580 / 580 Weight 61.7 kg Intake: IV 350 / 350 600 / 600 Oral 480 / 480 930 / 930 Output: Urine 500 / 500 950 / 950 Other: Urine Color Yellow Yellow Urine Appearance Clear Clear Urine Odor Strong Comment Palomares draining clear yellow urine. Palomares draining clear yellow urine. Stool Occult Blood Positive Stool Size Large Moderate Stool Characteristics Liquid Soft Brown Black Voiding Methods Indwelling Catheter Laboratory Results WBC 10.22 k/cumm (4.4-10.8) 11/08/17 06:27 RBC 2.09 m/cumm (4.00-5.20) L 11/08/17 06:27 Hgb 7.0 g/dL (12.0-15.5) L 11/08/17 06:27 Hct 22.1 % (36.0-46.0) L 11/08/17 06:27 MCV 105.7 fL (80-95) H 11/08/17 06:27 MCH 33.5 pg (27.0-33.0) H 11/08/17 06:27 MCHC 31.7 g/dL (32.0-36.0) L 11/08/17 06:27 RDW 14.4 % (11.7-14.6) 11/08/17 06:27 Plt Count 247 x1000/uL (130-400) 11/08/17 06:27 MPV 10.2 fL (8.0-11.0) 11/08/17 06: Immature Gran % 0.2 11/08/17 06:27 Neutrophils % 90.8 11/08/17 06:27 Lymphocytes % 5.6 11/08/17 06:27 Monocytes % 3.4 11/08/17 06: Eosinophils % 0.0 11/08/17 06: Basophils % 0.0 11/08/17 06:27 Absolute Neutrophils 9.28 k/cumm (1.2-6.7) H 11/08/17 06:27 Absolute Lymphocytes 0.57 k/cumm (1.2-3.4) L 11/08/17 06: Absolute Monocytes 0.35 k/cumm (0.11-0.7) 11/08/17 06: Absolute Eosinophils 0.00 k/cumm (0.0-0.7) 11/08/17 06: Absolute Basophils 0.00 k/cumm (0.0-0.2) 11/08/17 06:27 VBG pH 7.44 (7.32-7.43) H 11/05/17 20:55 VBG pCO2 40 mm/Hg (34-47) 11/05/17 20:55 VBG pO2 138 mm/Hg (28-44) H 11/05/17 20:55 VBG HCO3 27 mmol/L (22-28) 11/05/17 20:55 VBG Total CO2 Not Applicable 11/05/17 20:55 VBG O2 Saturation > 99 % (70-80) H 11/05/17 20:55 VBG Base Excess 2.9 mmol/L (-3-3) 11/05/17 20:55 Sodium 141 mmol/L (136-145) 11/08/17 06:27 Potassium 4.3 mmol/L (3.5-5.1) 11/08/17 06:27 Chloride 109 mmol/L (98-107) H 11/08/17 06:27 Carbon Dioxide 25.8 mmol/L (21.0-32.0) 11/08/17 06:27 Anion Gap 6.2 mmol/L (3-11) 11/08/17 06:27 BUN 28 mg/dL (7-18) H 11/08/17 06:27 Creatinine 0.88 mg/dL (0.55-1.02) 11/08/17 06:27 Estimated GFR/1.73 m2 >= 60.00 (mL/min/1.73m2) 11/08/17 06:27 Glucose 142 mg/dL (70-100) H 11/08/17 06:27 Lactate 1.2 mmol/L (0.6-1.4) 11/06/17 09:00 Calcium 8.2 mg/dL (8.5-10.1) L 11/08/17 06:27 Iron 9 ug/dL (50-175) L 11/06/17 09:00 TIBC 176 ug/dL (250-450) L 11/06/17 09:00 Transferrin % Sat 5 % (15-50) L 11/06/17 09:00 Ferritin 146 ng/mL (8-388) 11/06/17 09:00 Total Bilirubin 0.2 mg/dL (0.2-1.0) 11/08/17 06:27 Conjugated Bilirubin 0.08 mg/dL (0.00-0.20) 11/07/17 06:15 AST 58 U/L (15-37) H 11/08/17 06:27 ALT 94 U/L (12-78) H 11/08/17 06:27 Alkaline Phosphatase 94 U/L (46-116) 11/08/17 06:27 Troponin I < 0.02 ng/mL (0.00-0.06) 11/05/17 17:33 Total Protein 5.1 g/dL (6.4-8.2) L 11/08/17 06:27 Albumin 1.8 g/dL (3.4-5.0) L 11/08/17 06:27 Vitamin B12 843 pg/mL (193-986) 11/06/17 09:00 Folate > 20.0 ng/mL (8.6-20.0) H 11/06/17 09:00 TSH Cancelled 11/05/17 17:34 Urine Color Yellow (Yellow) 11/05/17 18:21 Urine Clarity Clear 11/05/17 18:21 Urine pH 5.5 (5-8) 11/05/17 18:21 Ur Specific [place] 1.015 (1.005-1.025) 11/05/17 18:21 Urine Protein 100 mg/dL (Negative) H 11/05/17 18:21 Urine Ketones Negative mg/dL (Negative) 11/05/17 18:21 Urine Blood Trace-intact (Negative) H 11/05/17 18:21 Urine Nitrite Negative (Negative) 11/05/17 18:21 Urine Bilirubin Negative (Negative) 11/05/17 18:21 Urine Urobilinogen 0.2 EU/dL (Up TO 0.2) 11/05/17 18:21 Ur Leukocyte Esterase Negative (Negative) 11/05/17 18:21 Urine RBC Negative (0-2) 11/05/17 18:21 Urine WBC 5-10 HPF (0-5) 11/05/17 18:21 Ur Epithelial Cells Few HPF (Negative) 11/05/17 18:21 Urine Crystals Few amorphous HPF (Negative) 11/05/17 18:21 Urine Bacteria Negative HPF (Negative) 11/05/17 18:21 Urine Casts 3-5 hyaline LPF (Negative) 11/05/17 18:21 Urine Mucus Negative (Negative) 11/05/17 18:21 Ur Culture Indicated? C&s done as ordered 11/05/17 18:21 Urine Glucose Negative mg/dL (Negative) 11/05/17 18:21 Vancomycin Trough 23.3 ug/mL (10.0-20.0) H* 11/08/17 09:30 Patient ABO/Rh O Positive 11/07/17 06:15 Antibody Screen Negative 11/07/17 06:15 Crossmatch See Detail 11/07/17 06:15
--- NOTE | 2017-11-08 12:07 | PDOC.CMPRO ---
Care Management Progress Note S/O: Ashia was dozing in her recliner when CM attempted to meet with her. [facility] provided current insurance information for Ashia for her BC/BS policy; CM emailed Member and Group numbers and Plan Code to INS Call[employer]. Anticipate Ashia will remain at [facility] through 11/12/17. She continues to be monitored closely in the ICU-no anticipated change in status. Her stools were heme positive and her hemoglobin continues to drop and she may require a transfusion today per MD-due to this her heparin is on hold. She also remains on IV ABX for treatment of HCAP. She continues to work with PT; BARTOLO requested [facility] Surgical orders for PT upon discharge from [place] at [facility] due to recent patellar fracture s/p surgical repair at [facility]. BARTOLO will provide orders to PT: Marilee when available. also requested OT consult as well. A: 77 year old female admitted to [facility] for Tachycardia, sepsis syndrome, institution acquired pneumonia P: Ashia will return to [facility] for a skilled stay when medically ready and the facility will manage her further service and equipment needs. She will transport via [facility].
--- NOTE | 2017-11-08 12:13 | CMPROGNOTE_ITS ---
Care Management Progress Note S/O: Ashia was dozing in her recliner when CM attempted to meet with her. [facility] provided current insurance information for Ashia for her BC/ BS policy; CM emailed Member and Group numbers and Plan Code to INS Call[employer]. Anticipate Ashia will remain at [facility] through 11/12/17. She continues to be monitored closely in the ICU-no anticipated change in status. Her stools were heme positive and her hemoglobin continues to drop and she may require a transfusion today per MD-due to this her heparin is on hold. She also remains on IV ABX for treatment of HCAP. She continues to work with PT; BARTOLO requested [facility] Surgical orders for PT upon discharge from [place] at [facility] due to recent patellar fracture s/p surgical repair at [facility]. BARTOLO will provide orders to PT: Marilee when available. also requested OT consult as well. A: 77 year old female admitted to [facility] for Tachycardia, sepsis syndrome, institution acquired pneumonia P: Ashia will return to [facility] for a skilled stay when medically ready and the facility will manage her further service and equipment needs. She will transport via [facility].
[2017-11-08] MEDS: Furosemide 20 MG/2 ML VIAL IVP (13:49)
[2017-11-08 14:28] LABS: Bilirubin, Direct 0.05 mg/dL (0.00-0.20)
--- NOTE | 2017-11-08 14:29 | PT.INTREAT ---
Date of service: 11/08/17 Time of Service: 13:26 PT Notes Inpatient Physical Therapy Treatment Note Date: 11/08/17 PRECAUTIONS: WBAT L LE, Hinged knee brace locked at 0 extension, Fall precautions SUBJECTIVE: Pt sitting in recliner chair, just received blood transfusion, asking to use commode then get back to bed. OBJECTIVE: General observation: hinged knee brace L LE locked 0 degrees, telemetry, BP/02 monitors, 3 liters 02 NC, maldonado catheter PAIN: no c/o pain BED MOBILITY/TRANSFERS Sit-stand: MinAx1 with FWW, tactile and verbal cuese for sequencing Stand-sit: CGA, cues to etenx LLE Chair-commode: CGA with FWW Commode-bed: CGA with FWW - FIELD LIABILITY GENERALIST in room, pt required max A for marimar-anal cleaning post voiding Sit-supine: HOB flat, maxAx2 for trunk and LE's into bed GAIT * Max A to don sandals for gait Assistive Device: FWW, hinged knee brace L LE locked at 0 extension Weight bearing: WBAT L LE Assist: CGA Distance: 5 ft in room to commode and to bed Deviation: short stride, narrow base of support, verbal cues required for step sequence and to utilize upper body support to unload L LE. Pt with difficulty with upper body support due to weakness in bilateral UE's and RA in hands. Pt able to perform transfers to commode and to bed with FWW. THEREX: bilateral ankle pumps and glute sets 20 reps, R LE SLR, hip abduction and heel slides 2x10 reps, L LE AAhip abduction 2x 10 reps ASSESSMENT: Pt able to progress LE strengthening exercises. Improved standing balance with transfers with use of FWW, gait limited today due to blood transfusion and fatigue from being up in x 3 hrs during transfusion. PLAN: Progress strengthening Progress transfers Progress gait mobility TREATMENT CODE/TIME: 32min TAx1 TPx1 1325 Marilee Dawson PT
[2017-11-08 15:36] LABS: HCT 27.3 % (36.0-46.0); HGB 8.9 g/dL (12.0-15.5)
[2017-11-08] MEDS: VANCOMYCIN 750 MG in Normal Saline 250 ML 166.6666 MG IVPB (17:24)
[2017-11-08] MEDS: Amitriptyline 25 MG TAB PO (21:21)
[2017-11-08] MEDS: Atorvastatin 10 MG TAB PO (21:22)
[2017-11-09] VITALS (17 sets, daily range): BP systolic 138–175; BP diastolic 65–91; PULSE 52–82; RESP 10–25; TEMP 36–37.2; O2SAT 91–100
[2017-11-09] MEDS: oxyCODONE 15 MG TAB PO ×5 (04:04→20:58)
[2017-11-09 07:14] LABS: Abs Immature Grans 0.17 k/cumm (0.0-0.09); Absolute Basophil Count 0.01 k/cumm (0.0-0.2); Absolute Eosinophil Count 0.06 k/cumm (0.0-0.7); Absolute Lymphocyte Count 1.19 k/cumm (1.2-3.4); Absolute Monocyte Count 1.23 k/cumm (0.11-0.7); Absolute Neutrophil Count 7.89 k/cumm (1.2-6.7); Basophils % 0.1; Eosinophils % 0.6; HCT 26.3 % (36.0-46.0); HGB 8.6 g/dL (12.0-15.5); Immature Grans % 1.6; Lymphocytes % 11.3; Mean Corp. HGB Concentration 32.7 g/dL (32.0-36.0); Mean Corpuscular Hemoglobin 32.7 pg (27.0-33.0); Mean Platelet Volume 9.9 fL (8.0-11.0); Monocytes % 11.7; Neutrophils % 74.7; Platelet Count 257 x1000/uL (130-400); RBC 2.63 m/cumm (4.00-5.20); RBC Distribution Width 16.1 % (11.7-14.6); White Blood Cell Count 10.55 k/cumm (4.4-10.8)
[2017-11-09] MEDS: CEFEPIME 2 GM in Normal Saline 100 ML IVPB ×2 (07:26→16:18)
[2017-11-09] MEDS: Sucralfate 1 GM TAB PO ×4 (07:26→22:06)
[2017-11-09] MEDS: Metoprolol 25 MG TAB PO ×2 (07:26→20:59)
[2017-11-09 07:37] LABS: Anion Gap 8.5 mmol/L (3-11); BUN 30 mg/dL (7-18); CO2 28.5 mmol/L (21.0-32.0); Calcium 8.3 mg/dL (8.5-10.1); Chloride 105 mmol/L (98-107); Estimated GFR 53.76 (mL/min/1.73m2); Glucose 80 mg/dL (70-100); Sodium 142 mmol/L (136-145)
[2017-11-09 07:44] LABS: ALT 84 U/L (12-78); AST 40 U/L (15-37); Alkaline Phosphatase 89 U/L (46-116); Bilirubin, Direct 0.06 mg/dL (0.00-0.20); Bilirubin, Total 0.3 mg/dL (0.2-1.0); Total Protein 5.2 g/dL (6.4-8.2)
[2017-11-09] MEDS: Allopurinol 300 MG TAB PO (07:46)
[2017-11-09] MEDS: Calcium 600mg/Vit D 200U TAB 1 TAB PO (07:47)
[2017-11-09] MEDS: Gabapentin 400 MG CAP PO ×2 (07:47→13:10)
[2017-11-09] MEDS: amLODIPine 5 MG TAB PO (07:47)
[2017-11-09] MEDS: Aspirin E.C. 81 MG TABEC PO (07:47)
[2017-11-09] MEDS: Multivitamin TAB 1 TAB PO (07:47)
[2017-11-09] MEDS: Folic Acid 1 MG TAB PO (07:47)
[2017-11-09] MEDS: Furosemide 20 MG TAB PO (07:48)
[2017-11-09] MEDS: Potassium Chloride 20 MEQ TABCR 40 MEQ PO ×2 (09:06→16:17)
[2017-11-09] MEDS: Hydrocortisone SOD SUC. 100 MG VIAL 50 MG IVP (09:07)
[2017-11-09] MEDS: Pantoprazole 40 MG VIAL IVP ×2 (09:08→20:58)
[2017-11-09] MEDS: MAGNESIUM SULFATE 1 GM/100 ML BAG IVPB ×2 (09:09→09:47)
--- NOTE | 2017-11-09 09:23 | PT.INTREAT ---
Date of service: 11/09/17 Time of Service: 09:23 PT Notes Inpatient Physical Therapy Treatment Note Date: 11/09/17 PRECAUTIONS:WBAT on L SUBJECTIVE: Ashia states that she is starting to feel some discomfort in her L knee area, as she has not had pain medication for a while. She is agreeable to getting up for breakfast with PT. OBJECTIVE: PAIN: Patient c/o L knee discomfort BED MOBILITY/TRANSFERS Supine-sit: Min A with HOB at 30 degrees Sit-stand: Min A-Mod A Stand-sit: CGA Bed-Chair: CGA-Min A GAIT Assistive Device: FWW Weight bearing: WBAT on L Assist: CGA-Min A Distance: 5' x2 Deviation: Verbal and manual cueing for FWW mechanics THEREX: Patient performed several supine exercises for LE stability and strength, as per flow sheet. TOILETING: Patient toileted with assist for perianal care, dressing, and transfers. ASSESSMENT: Patient tolerated session with c/o discomfort in L knee. She was able to tolerate increased gait distance, however required Min A at times and manual and verbal cueing for proper FWW mechanics. Patient would benefit from continued strengthening and gait and transfer training. PLAN: Continue with PT's POC TREATMENT CODE/TIME: 45 minutes; 2 TP
--- NOTE | 2017-11-09 09:27 | PTTR_ITS ---
Date of service: 11/09/17 Time of Service: 09:23 PT Notes Inpatient Physical Therapy Treatment Note Date: 11/09/17 PRECAUTIONS:WBAT on L SUBJECTIVE: Ashia states that she is starting to feel some discomfort in her L knee area, as she has not had pain medication for a while. She is agreeable to getting up for breakfast with PT. OBJECTIVE: PAIN: Patient c/o L knee discomfort BED MOBILITY/TRANSFERS Supine-sit: Min A with HOB at 30 degrees Sit-stand: Min A-Mod A Stand-sit: CGA Bed-Chair: CGA-Min A GAIT Assistive Device: FWW Weight bearing: WBAT on L Assist: CGA-Min A Distance: 5' x2 Deviation: Verbal and manual cueing for FWW mechanics THEREX: Patient performed several supine exercises for LE stability and strength , as per flow sheet. TOILETING: Patient toileted with assist for perianal care, dressing, and transfers. ASSESSMENT: Patient tolerated session with c/o discomfort in L knee. She was able to tolerate increased gait distance, however required Min A at times and manual and verbal cueing for proper FWW mechanics. Patient would benefit from continued strengthening and gait and transfer training. PLAN: Continue with PT's POC TREATMENT CODE/TIME: 45 minutes; 2 TP
[2017-11-09] MEDS: VANCOMYCIN 750 MG in Normal Saline 250 ML 166 MG IVPB (09:42)
[2017-11-09] MEDS: POTASSIUM CHLORIDE 20 MEQ/100 ML BAG 50 MEQ IVPB (09:52)
[2017-11-09] MEDS: Acetaminophen 325 MG TAB PO ×2 (11:03→16:17)
--- NOTE | 2017-11-09 12:00 | W.PM.PROGNOT ---
Assessment and Plan (1) Left lower lobe pneumonia: Current visit: Yes Status: Acute Treat as HCAP given recent hospitalization - Day #5 Vancomycin and Cefepime. Blood Cultures negative X 72 hours, and Sputum Culture unrevealing at this time (Few WBCs, rare Anthony). Plan on 7 day course of antibiotics. (2) Sepsis syndrome: Current visit: Yes Status: Acute Based on elevated temperature, RR, HR, WBC, and known pulmonary source - patient appears vastly improved and now with normalized lactate. Discontinued IVFs previously. Continue antibiotic therapy, and continue to monitor culture results. Also on Stress dose steroids due to chronic low dose prednisone use - decrease dose again today. Sepsis is resolved. Will transfer out of ICU to med surg. (3) Aortic stenosis: Current visit: Yes Status: Chronic Severe but asymptomatic with intact LVEF by review of outside hospital records. Continue to monitor fluid status and blood pressure - appeared volume overloaded by pulmonary exam yesterday. IVF's discontinued previously, and administered low dose IV Lasix with good results. Restart oral lasix and monitor weights, fluid status carefully. Also received blood yesterday . On BB, ASA, and statin as part of home meds. (4) Rheumatoid arthritis: Current visit: Yes Status: Chronic Continue MTx. Low dose daily prednisone on hold in light of stress dosed steroids. (5) Hypertension: Current visit: Yes Status: Chronic Holding CCB in setting of acute sepsis - restarted as blood pressure is adequate and elevating. Increase dose today. Continue low dose BB with strict hold parameters. (6) Dyslipidemia: Current visit: Yes Status: Acute Currently on low dose high potency statin therapy. (7) Chronic pain: Current visit: Yes Status: Chronic On the basis of RA. Currently on Gabapentin and Oxycodone. Continue TENS unit as well. (8) Anemia: Current visit: Yes Status: Chronic Low iron, but also low TIBC and normal ferritin. Likely Anemia of Chronic Disease with potential concurrent blood loss. Heme + stool as checked. B12, FA, and TSH also checked and normal. Patient is chronically on low dose daily prednisone, aspirin, and takes NSAID therapy secondary to her history of RA. Continue IV PPI therapy but changed to BID dosing. Started Carafate as well. Hemoglobin had dropped again yesterday - s/p 1 unit PRBCs with good response. Monitor H/H. (9) Diarrhea: Current visit: Yes Status: Acute Potentially on basis of antibiotic side-effect. C. Diff checked and negative. Fecal Leukocytes, Stool cultures negative as well. (10) DVT prophylaxis: Current visit: Yes Status: Acute SC Heparin discontinued in setting of dropping hgb and Heme + stools. SCDs in place. Consider restarting soon. Subjective Interval history since last seen: 77 year old woman with a past medical history significant for RA on Methotrexate and daily Prednisone, Aortic Stenosis quantified as 'severe' by review of outside records, History of PE s/p IVC filter placement presents to [facility] emergency department with reported fevers. Mrs. Montero was recently hospitalized at [facility] for repair of a left Patella fracture on 11/01/2017. She also underwent treatment for a UTI (Proteus Mirabilis, sensitive to CTx & FQ's), and underwent clearance for surgical intervention due to her history of Aortic Stenosis (Patient's Salad Counter Attendant is Dr. Malave). She spent a total of 4 days in the hospital. Following treatment she was [facility]. Shortly after arrival at [facility] she was noted to have a significant fever with rigors, and was brought to the emergency department for further evaluation. Work-up in the ED included evidence of Tachycardia, elevated Lactic Acid, Leukocytosis, and a LLL Infiltrate by CT. She was diagnosed with Sepsis on the basis of HCAP, and admitted to the hospital. By the following morning the patient appeared vastly improved, with resolved Tachycardia and normalized Lactic Acid. Her minimal leukocytosis has resolved as well. She reports continued but improved symptoms overall. However, noted to have loose stools previously, and with a dropping hemoglobin now at 7. Her stool was checked and Heme +. The patient was also appearing to become more volume overloaded and more tachypneic with IVF resuscitation and witholding of her daily oral furosemide - patient also received 1 unit of PRBCs. She was administered low dose IV Lasix and responded well with diuresis, and appears improved from a respiratory standpoint this morning. She remains afebrile. Exam Narrative Exam Narrative: General: Patient appears comfortable, sitting out of bed in chair, AAOX3, NAD Neck: Supple CV: Regular, nontachycardic, S1S2, 3/6 harsh BILL best appreciated RUSB. Pulmonary: Left basilar crackles with decreased breath sounds. Right sided crackles improved since prior exam. Abdomen: + Bowel Sounds, soft, nontender, nondistended Vascular: No lower extremity edema Extremities: Deformities the majority of inspected joints. No clubbing, no cyanosis. Psych: Normal mood and affect. Objective Objective Clinical Data: Abnormal lab results 11/07/17 11/08/17 11/09/17 Range/Units 06:15 15:27 06:17 RBC (4.00-5.20) m/cumm Hgb 8.9 L (12.0-15.5) g/dL Hct 27.3 L D (36.0-46.0) % MCV (80-95) fL RDW (11.7-14.6) % Absolute Neutrophils (1.2-6.7) k/cumm Absolute Lymphocytes (1.2-3.4) k/cumm Absolute Monocytes (0.11-0.7) k/cumm Potassium 3.0 L D (3.5-5.1) mmol/L BUN 30 H (7-18) mg/dL Calcium 8.3 L (8.5-10.1) mg/dL AST (15-37) U/L ALT (12-78) U/L Total Protein (6.4-8.2) g/dL Albumin (3.4-5.0) g/dL Crossmatch See Detail 11/09/17 11/09/17 Range/Units 06:17 06:17 RBC 2.63 L (4.00-5.20) m/cumm Hgb 8.6 L (12.0-15.5) g/dL Hct 26.3 L (36.0-46.0) % MCV 100.0 H D (80-95) fL RDW 16.1 H (11.7-14.6) % Absolute Neutrophils 7.89 H (1.2-6.7) k/cumm Absolute Lymphocytes 1.19 L (1.2-3.4) k/cumm Absolute Monocytes 1.23 H (0.11-0.7) k/cumm Potassium (3.5-5.1) mmol/L BUN (7-18) mg/dL Calcium (8.5-10.1) mg/dL AST 40 H (15-37) U/L ALT 84 H (12-78) U/L Total Protein 5.2 L (6.4-8.2) g/dL Albumin 2.0 L (3.4-5.0) g/dL Crossmatch Vital Signs Temperature 36 C L 11/09/17 04:04 Temperature Source Temporal Artery Scan 11/09/17 03:00 Pulse 60 11/09/17 06:01 Pulse 61 11/09/17 06:01 Respiratory Rate 11 L 11/09/17 06:01 Respiratory Effort 11/09/17 09:00 Respiratory Depth Normal 11/09/17 09:00 Respiratory Pattern Normal 11/09/17 09:00 Blood Pressure 144/86 H 11/09/17 06:01 Blood Pressure Mean 100 11/09/17 06:01 Blood Pressure Position Left Lateral 11/09/17 09:00 Pulse Oximetry 94 L 11/09/17 07:45 Oxygen Delivery Method Room Air 11/09/17 09:00 Oxygen Flow Rate 0 11/09/17 09:00 Fraction of Inspired Oxygen (FIO2) 30 11/05/17 18:20 Pain Level 7 11/09/17 11:03 Comment 11/07/17 11:12 Intake & Output 11/08/17 11/09/17 11/09/17 23:59 11:59 23:59 Intake Total 1040 / 1040 913.333 / 913.333 Output Total 2350 / 2350 1900 / 1900 Balance -1310 / -1310 -986.667 / -986.667 Weight 61.7 kg 62.7 kg Intake: IV 450 / 450 263.333 / 263.333 Oral 340 / 340 650 / 650 Blood Product 250 / 250 Rbc Leuko Reduced Unit 250 / 250 [id number] Output: Urine 2350 / 2350 1900 / 1900 Other: Urine Color Pale Yellow Yellow Urine Appearance Clear Clear Comment Palomares draining clear yellow urine QS. Palomares draining clear yellow urine QS. Stool Occult Blood Positive Positive Stool Size Small Small Stool Characteristics Soft Soft Black Black Voiding Methods Indwelling Catheter Laboratory Results WBC 10.55 k/cumm (4.4-10.8) 11/09/17 06:17 RBC 2.63 m/cumm (4.00-5.20) L 11/09/17 06:17 Hgb 8.6 g/dL (12.0-15.5) L 11/09/17 06:17 Hct 26.3 % (36.0-46.0) L 11/09/17 06:17 MCV 100.0 fL (80-95) H D 11/09/17 06:17 MCH 32.7 pg (27.0-33.0) 11/09/17 06:17 MCHC 32.7 g/dL (32.0-36.0) 11/09/17 06:17 RDW 16.1 % (11.7-14.6) H 11/09/17 06:17 Plt Count 257 x1000/uL (130-400) 11/09/17 06:17 MPV 9.9 fL (8.0-11.0) 11/09/17 06:17 Immature Gran % 1.6 11/09/17 06:17 Neutrophils % 74.7 11/09/17 06:17 Lymphocytes % 11.3 11/09/17 06:17 Monocytes % 11.7 11/09/17 06:17 Eosinophils % 0.6 11/09/17 06:17 Basophils % 0.1 11/09/17 06:17 Absolute Neutrophils 7.89 k/cumm (1.2-6.7) H 11/09/17 06:17 Absolute Lymphocytes 1.19 k/cumm (1.2-3.4) L 11/09/17 06:17 Absolute Monocytes 1.23 k/cumm (0.11-0.7) H 11/09/17 06:17 Absolute Eosinophils 0.06 k/cumm (0.0-0.7) 11/09/17 06:17 Absolute Basophils 0.01 k/cumm (0.0-0.2) 11/09/17 06:17 VBG pH 7.44 (7.32-7.43) H 11/05/17 20:55 VBG pCO2 40 mm/Hg (34-47) 11/05/17 20:55 VBG pO2 138 mm/Hg (28-44) H 11/05/17 20:55 VBG HCO3 27 mmol/L (22-28) 11/05/17 20:55 VBG Total CO2 Not Applicable 11/05/17 20:55 VBG O2 Saturation > 99 % (70-80) H 11/05/17 20:55 VBG Base Excess 2.9 mmol/L (-3-3) 11/05/17 20:55 Sodium 142 mmol/L (136-145) 11/09/17 06:17 Potassium 3.0 mmol/L (3.5-5.1) L D 11/09/17 06:17 Chloride 105 mmol/L (98-107) 11/09/17 06:17 Carbon Dioxide 28.5 mmol/L (21.0-32.0) 11/09/17 06:17 Anion Gap 8.5 mmol/L (3-11) 11/09/17 06:17 BUN 30 mg/dL (7-18) H 11/09/17 06:17 Creatinine 1.00 mg/dL (0.55-1.02) 11/09/17 06:17 Estimated GFR/1.73 m2 53.76 (mL/min/1.73m2) 11/09/17 06:17 Glucose 80 mg/dL (70-100) D 11/09/17 06:17 Lactate 1.2 mmol/L (0.6-1.4) 11/06/17 09:00 Calcium 8.3 mg/dL (8.5-10.1) L 11/09/17 06:17 Iron 9 ug/dL (50-175) L 11/06/17 09:00 TIBC 176 ug/dL (250-450) L 11/06/17 09:00 Transferrin % Sat 5 % (15-50) L 11/06/17 09:00 Ferritin 146 ng/mL (8-388) 11/06/17 09:00 Total Bilirubin 0.3 mg/dL (0.2-1.0) 11/09/17 06:17 Conjugated Bilirubin 0.06 mg/dL (0.00-0.20) 11/09/17 06:17 AST 40 U/L (15-37) H 11/09/17 06:17 ALT 84 U/L (12-78) H 11/09/17 06:17 Alkaline Phosphatase 89 U/L (46-116) 11/09/17 06:17 Troponin I < 0.02 ng/mL (0.00-0.06) 11/05/17 17:33 Total Protein 5.2 g/dL (6.4-8.2) L 11/09/17 06:17 Albumin 2.0 g/dL (3.4-5.0) L 11/09/17 06:17 Vitamin B12 843 pg/mL (193-986) 11/06/17 09:00 Folate > 20.0 ng/mL (8.6-20.0) H 11/06/17 09:00 TSH Cancelled 11/05/17 17:34 Urine Color Yellow (Yellow) 11/05/17 18:21 Urine Clarity Clear 11/05/17 18:21 Urine pH 5.5 (5-8) 11/05/17 18:21 Ur Specific [place] 1.015 (1.005-1.025) 11/05/17 18:21 Urine Protein 100 mg/dL (Negative) H 11/05/17 18:21 Urine Ketones Negative mg/dL (Negative) 11/05/17 18:21 Urine Blood Trace-intact (Negative) H 11/05/17 18:21 Urine Nitrite Negative (Negative) 11/05/17 18:21 Urine Bilirubin Negative (Negative) 11/05/17 18:21 Urine Urobilinogen 0.2 EU/dL (Up TO 0.2) 11/05/17 18:21 Ur Leukocyte Esterase Negative (Negative) 11/05/17 18:21 Urine RBC Negative (0-2) 11/05/17 18:21 Urine WBC 5-10 HPF (0-5) 11/05/17 18:21 Ur Epithelial Cells Few HPF (Negative) 11/05/17 18:21 Urine Crystals Few amorphous HPF (Negative) 11/05/17 18:21 Urine Bacteria Negative HPF (Negative) 11/05/17 18:21 Urine Casts 3-5 hyaline LPF (Negative) 11/05/17 18:21 Urine Mucus Negative (Negative) 11/05/17 18:21 Ur Culture Indicated? C&s done as ordered 11/05/17 18:21 Urine Glucose Negative mg/dL (Negative) 11/05/17 18:21 Stool Campylobacter PCR See comments 11/06/17 10:15 Stool Salmonella PCR See comments 11/06/17 10:15 Stool Shigella PCR See comments 11/06/17 10:15 Vancomycin Trough 23.3 ug/mL (10.0-20.0) H* 11/08/17 09:30 Shiga Toxin (PCR) See comments 11/06/17 10:15 Patient ABO/Rh O Positive 11/07/17 06:15 Antibody Screen Negative 11/07/17 06:15 Crossmatch See Detail 11/07/17 06:15
--- NOTE | 2017-11-09 12:31 | OT.INIE ---
Occupational Therapy Notes Inpatient Occupational Therapy Evaluation Date: 11/09/17 Referring Doctor:Carlos Morton MD OT Orders: Left patellar Fx s/p repair, history of RA. Precautions: WBAT L LE, Left hinged knee brace on at all times locked at -10 extension. PATIENT PROFILE/ADMITTING DIAGNOSIS: Pt is a 77 year old female admitted with (L) lower lobe pneumonia and sepsis s/p repair (L) patellar fx on 11/01/17. 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 Current Functional Limitations: Pt has decreased (I) in ADLs, decreased (I) in functional mobility, Decreased UE AROM impacting her (I) in LE dressing, decreased functional activity tolerance with ADLs. Social History/Home Situation: Pt reports that she lives alone in her home, her last year. Her daughter lives about 10 miles away and assists as needed. She has two stairs to enter home and reports that on both sides there are 2 railings one higher and one lower. Pt states that her bathroom set up is a walking shower with 6 in step to step over. She states she has a shower chair and removable shower head as well as rugs that are wall to wall coverings. Pt reports that her baseline (I) in ADLs/ IADLs was as follows: Functional Mobility- Walker, Transport Chair as needed Dressing- (I) UE, Difficulty pulling up pants in standing position. Grooming- Performed 1/2 at sink and 1/2 in chair due to decreased activity tolerance. Toileting- Uses raised toilet seat (I) Bathing- In sitting (I) with help from daughter as needed. Feeding- (I) Cooking- (I) Equipment owned/DME: Cane, FWW, transport chair, raised toilet seat SUBJECTIVE: Pt sitting in chiar when OT arrived. She wanted OT or nurse to place a TENS unit on her upper back. OT spoke with nursing staff who said that they were going to do this later. Pt states that she doesn't feel like moving out of her chair at this time, that she is tired and doesn't want to do anything she can't perform sitting. Pt does report that she was planning on going to [facility] as her original plan and then ended up here at [facility]. Pt agreeable to OT session as long as she could perform tasks in sitting today. OBJECTIVE: General Observation: maldonado catheter,BP (R) arm, telemetry, (L) UE IV, 2 liters 02 NC, hinged knee brace left knee locked at -10 degrees, nader wrap under brace. Mental Status: A&Ox3 Pain: Pt complains of mild pain in (B) UE with shoulder flexion but is unable to quantify on VAS. ROM: RUE AROM shoulder flexion 90-95* with slight pain, Wrist and elbow WNL, Hand WFL arthritis L UE AROM shoulder flexion 95* with slight pain, wrist and elbow WNL, Hand WFL arhtritis STRENGTH: RUE Shoulder flexion 2/5, bicep 3/5, department operations manager 3/5 LUE Shoulder flexion 2/5, bicep 3/5, department operations manager 3/5 GROOMING Sitting in reclining chair with set up (A) pt able to brush teeth (I). Pt required minimal verbal cues for putting toothpaste on brush. BALANCE: Static sitting normal Pt Education: Pt educated in LE dressing in sitting with weight shifting side to side with written and illustrated handout provided to pt. Educated pt on sitting and supine positions at this time. Pt denied performing dressing tasks but was receptive to information and handout provided to her. Will assess this at next session. SPECIAL TESTS: Daily Activity Limitations Standardized Measure [facility] AM -PAC ?6 clicks? Daily Activity Inpatient Short Form: Raw score: 18 Standardized score: 38.66 CMS score: 46.65% CMS modifier: CK INFORMED CONSENT/EDUCATION: Pt instructed in purpose of OT Consult and plan of care. ASSESSMENT: Patient is a 77-year-old female referred to physical therapy services with diagnosis of []. 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 Impairments are contributing to the following functional limitations: Difficulty perform ADL routine, decreased functional activity tolerance, difficulty performing lower body dressing. Pt would benefit from education in safe LE dressing positions with education on adaptive equipment, UE strengthening program to increase (I) with functional mobility, Education on energy conservation techniques to (I) functional activity tolerance. Recommend that pt go to half-way care facility before returning home. AMPAC score 18 CMS score 46.65% Patient is assessed as a high 36199 complexity based on the following: History: See PMHX Examination: See Above Presentation: Evolving Decision Making: AMPAC Score , CMS score 46.65% GOALS Goals x1 week 1. Transfers SBA, FWW, hinged brace 2. Dressing (I) UE dressing, Mod (I) LE dressing with minimal verbal cues 3. Bathing In sitting (I) with UE, Min (A) LE 4. Toileting- On toilet min (A) 5. Grooming- Standing at sink with FWW with (I) set up and teeth brushing/ hair routine. PLAN OF CARE/TREATMENT PLAN: 1x/day, 5 days/ week x 1week Initiate Occupational Therapy Services for bathing, dressing, grooming, toileting, eating, transfer training. DISCHARGE RECOMMENDATIONS [facility] care facility until medically cleared to return to home. TREATMENT TIME/MINUTES/CODES 45min, IE, 09:40 G Codes in the area of self- : washing oneself, toileting, dressing, eating and drinking, current status [id number] CK projected status GP [id number].
--- NOTE | 2017-11-09 14:22 | PT.INTREAT ---
Date of service: 11/09/17 Time of Service: 14:22 PT Notes Inpatient Physical Therapy Treatment Note Date: 11/09/17 PRECAUTIONS: WBAT on L SUBJECTIVE: Ashia states that she feels tired and has been up to use the commode a lot today. OBJECTIVE: PAIN: Patient c/o L knee pain with weight bearing BED MOBILITY/TRANSFERS Sit-supine: Max A x2 with HOB flat Sit-stand: Mod A Stand-sit: Min A Chair-bed: CGA GAIT Assistive Device: FWW Weight bearing: WBAT Assist: CGA Distance: 5' THEREX: Patient refused, needed to use bed che ASSESSMENT: Patient tolerated session with increased pain in her L knee. She was not able to tolerate any progression in gait or ther ex due to fatigue and pain in L knee. PLAN: Continue with PT's POC TREATMENT CODE/TIME: 20 minutes; TA
[2017-11-09] MEDS: Normal Saline Flush 10 ML SYR IVP (20:59)
--- NOTE | 2017-11-09 22:20 | NUR.NOTE ---
Nursing Note: Patient came to the floor from ICU prior to 1900. assessments performed and recorded. Patient has chronic pain issues r/t to RA and received prn pain medication at 2100. Pain is managed with oxycodone. ls and sats are better than reported from earlier, she is a7o x 3 ,makes needs known, ambulation status wbat with 1-2 assist with walker, she worked with pt today and was toe touch with them. she had a fixation of the left patella else where, and has an immobilizer in place scd on nonsurgical leg. Patient has asked to use bedpan tonight as she has had urgency with bowel movements today as she has had 5 tarry stools tonight maldonado insitu putting out large quantity of urine
[2017-11-10] MEDS: CEFEPIME 2 GM in Normal Saline 100 ML IVPB ×4 (00:15→23:29)
[2017-11-10] MEDS: VANCOMYCIN 750 MG in Normal Saline 250 ML 166 MG IVPB (00:51)
[2017-11-10] MEDS: LORazepam 0.5 MG TAB PO ×2 (02:23→21:39)
[2017-11-10] MEDS: oxyCODONE 15 MG TAB PO ×6 (02:23→23:42)
[2017-11-10 06:31] LABS: Abs Immature Grans 0.56 k/cumm (0.0-0.09); Absolute Basophil Count 0.06 k/cumm (0.0-0.2); Absolute Eosinophil Count 0.42 k/cumm (0.0-0.7); Absolute Lymphocyte Count 1.11 k/cumm (1.2-3.4); Absolute Neutrophil Count 7.89 k/cumm (1.2-6.7); Basophils % 0.5; Eosinophils % 3.7; HCT 29.2 % (36.0-46.0); HGB 9.5 g/dL (12.0-15.5); Lymphocytes % 9.9; Mean Corp. HGB Concentration 32.5 g/dL (32.0-36.0); Mean Corpuscular Hemoglobin 32.5 pg (27.0-33.0); Mean Platelet Volume 9.9 fL (8.0-11.0); Monocytes % 10.8; Neutrophils % 70.1; Platelet Count 268 x1000/uL (130-400); RBC 2.92 m/cumm (4.00-5.20); RBC Distribution Width 16.3 % (11.7-14.6); White Blood Cell Count 11.25 k/cumm (4.4-10.8)
[2017-11-10 06:42] LABS: Anion Gap 7.4 mmol/L (3-11); BUN 26 mg/dL (7-18); CO2 29.6 mmol/L (21.0-32.0); CREATININE 0.83 mg/dL (0.55-1.02); Calcium 8.4 mg/dL (8.5-10.1); Chloride 103 mmol/L (98-107); Glucose 87 mg/dL (70-100); Potassium 4.7 mmol/L (3.5-5.1); Sodium 140 mmol/L (136-145)
[2017-11-10] MEDS: Normal Saline Flush 10 ML SYR IVP ×5 (06:46→23:44)
[2017-11-10 06:49] LABS: Absolute Monocyte Count 1.22 k/cumm (0.11-0.7)
[2017-11-10 06:59] LABS: AST 5 U/L (15-37)
[2017-11-10 07:10] LABS: ALT 71 U/L (12-78); Albumin 2.2 g/dL (3.4-5.0); Alkaline Phosphatase 90 U/L (46-116); Bilirubin, Direct 0.07 mg/dL (0.00-0.20); Bilirubin, Total 0.3 mg/dL (0.2-1.0); Total Protein 5.1 g/dL (6.4-8.2)
[2017-11-10 07:35] VITALS: BP 135/75; PULSE 60; RESP 18; TEMP 37.1; O2SAT 93
[2017-11-10] MEDS: Pantoprazole 40 MG VIAL IVP ×2 (08:30→19:34)
[2017-11-10] MEDS: Sucralfate 1 GM TAB PO ×4 (08:31→21:39)
[2017-11-10] MEDS: Metoprolol 25 MG TAB PO ×2 (08:31→19:33)
[2017-11-10] MEDS: Hydrocortisone SOD SUC. 100 MG VIAL 20 MG IVP (08:31)
[2017-11-10] MEDS: Furosemide 20 MG TAB PO (08:31)
--- NOTE | 2017-11-10 08:43 | PDOC.CMPRO ---
- If Service Date Differs Date of service: 11/10/17 Time of Service: 08:43 Care Management Progress Note S/O: Ashia is lying in bed following breakfast when CM visits this morning. She is engaged in conversation, makes good eye contact and is talkative. Ashia denies chest pain and pressure and does not appear to be in any respiratory distress. Her O2 sat on RA is 93%. She does report SOB with ambulation, but states that she has not been working much with PT due to her frequent loose stools. Ashia reportedly had five heme positive, black tarry stools yesterday. CM assured Ashia that her move from ICU to the MS floor was a positive one and that she should continue to see improvement in her health. She is frustrated by this 'set back' in her health as she had intended to go to [facility] for rehab prior to being admitted to [facility]. Anticipate Ashia will remain at [facility] through 11/12/17. A: 77 year old female admitted to [facility] for Tachycardia, sepsis syndrome, institution acquired pneumonia P: Ashia will discharge to [facility] for a skilled stay when medically ready and the facility will manage her further service and equipment needs. She will transport via [facility]. CM will continue to offer support to patient and care team regarding discharge planning and disposition.
--- NOTE | 2017-11-10 08:48 | CMPROGNOTE_ITS ---
- If Service Date Differs Date of service: 11/10/17 Time of Service: 08:43 Care Management Progress Note S/O: Ashia is lying in bed following breakfast when CM visits this morning. She is engaged in conversation, makes good eye contact and is talkative. Ashia denies chest pain and pressure and does not appear to be in any respiratory distress. Her O2 sat on RA is 93%. She does report SOB with ambulation, but states that she has not been working much with PT due to her frequent loose stools. Ashia reportedly had five heme positive, black tarry stools yesterday. CM assured Ashia that her move from ICU to the MS floor was a positive one and that she should continue to see improvement in her health. She is frustrated by this 'set back' in her health as she had intended to go to [facility] for rehab prior to being admitted to [facility]. Anticipate Ashia will remain at [facility] through 11/12/17. A: 77 year old female admitted to [facility] for Tachycardia, sepsis syndrome, institution acquired pneumonia P: Ashia will discharge to [facility] for a skilled stay when medically ready and the facility will manage her further service and equipment needs. She will transport via [facility]. CM will continue to offer support to patient and care team regarding discharge planning and disposition.
[2017-11-10] MEDS: Acetaminophen 325 MG TAB PO ×3 (10:09→18:36)
--- NOTE | 2017-11-10 11:00 | PTTR_ITS ---
Date of service: 11/10/17 Time of Service: 10:54 PT Notes 11/10/2017 Subjective: Patient reporting pain in the left knee at 5/10. She had she is ready to get up to the chair this morning although she is nervous she is can have to go the bathroom. Patient notes she is not sure how she is going to walk. Objective: Patient agreeable to PT treatment. Bed mobility: Supine?sit: Min assist x1 with head of bed elevated Transfers: Sit?stand: Mod assist x1 Stand?sit: Min assist x1 Gait: Device: FWW Weightbearing: WBAT?left Assist: CGA Distance: 3 steps +5 steps Deviations: Walker management, upright posturing Assessment: Patient tolerated PT treatment well today. Improvements in transfers from supine to sit. She does continue to require mod assist from sit to stand position. Plan: Continue current plan of care and progress patient's gait and strength as she is able to tolerate. Treatment time: 30 minutes TAx2 Annabelle Cates PTA Disclaimer: This note was created using [employer] voice recognition software. It was reviewed for major content. However, there may be multiple small discrepancies and errors due to the voice recognition aspects of the software.
[2017-11-10 15:49] LABS: Vancomycin, Trough 23.8 ug/mL (10.0-20.0)
[2017-11-10 15:55] VITALS: BP 143/72; PULSE 81; RESP 17; TEMP 36.8; O2SAT 94
--- NOTE | 2017-11-10 16:24 | W.PM.PROGNOT ---
Assessment and Plan (1) Diarrhea: Current visit: Yes Status: Acute Continues to have diarrhea reporting over 5 episodes overnight 3 episodes so far today. She has had C. difficile testing which was negative but has had C. difficile in the past going to check 1 more sample. Reports kurt blood in diarrhea but H&H is stable and gradually increasing since transfusion. We will continue to monitor H&H. Add lactobacillus with meals (2) DVT prophylaxis: Current visit: Yes Status: Acute SCDs in setting of heme positive stool and acute anemia (3) Aortic stenosis: Current visit: Yes Status: Chronic Stable, will continue to monitor fluid status and hemodynamics closely (4) Anemia: Current visit: Yes Status: Chronic H&H has remained stable despite ongoing reports of blood in her stool. Will continue to follow H&H and replace as needed (5) Dyslipidemia: Current visit: Yes Status: Acute Stable continue statin (6) Hypertension: Current visit: Yes Status: Chronic Blood pressures have been stable we will continue beta-treva and monitor (7) Rheumatoid arthritis: Current visit: Yes Status: Chronic This is stable we will continue her methotrexate and will taper her steroids back to her daily dose once she is through stress steroids (8) Left lower lobe pneumonia: Current visit: Yes Status: Acute Respiratory status is stable she is oxygenating well on room air is on triple antibiotic therapy for treatment of healthcare associated pneumonia in setting of recent hospitalization she has remained afebrile. , White count elevated but is on stress dose steroids which may be contributing today is day 6 out of 7. (9) Sepsis syndrome: Current visit: Yes Status: Resolved Resolved (10) Patellar fracture: Current visit: Yes Status: Acute Was admitted at [facility] with repair of left patellar fracture on November 01, 2017. Continue routine postoperative care. Knee immobilizer is in place. Pain is managed. Dressing is dry and intact. Will need PT OT and rehabilitation stay prior to discharge back home (11) On esomeprazole prophylaxis: Current visit: Yes Status: Acute Patient is chronically on low-dose steroids aspirin and NSAID therapy secondary to her history of rheumatoid arthritis will be on twice daily dosing of a PPI and Carafate while hospitalized (12) Discharge planning issues: Current visit: Yes Status: Acute Anticipated discharge back to [facility] and rehab once medically stable prior to returning home Subjective Patient reports: no new complaints, tolerating a regular diet, diarrhea (ongoing with kurt blood on stool) and blood in stool; denies nausea, vomiting and fever Exam Const General: cooperative, healthy appearing, comfortable and no acute distress Nutritional Appearance: average body habitus Orientation: alert, awake and oriented x3 HENMT Head: normal to inspection, normocephalic and atraumatic Mouth: moist mucous membranes Neck Neck: normal visual inspection Cardio Rate: regular rate Rhythm: regular rhythm Heart Sounds: murmur systolic IV/ GI Inspection: normal to inspection Palpation: soft, no guarding and nontender Auscultation: normal bowel sounds General: other (maldonado to gravity draining light yellow urine) Skin General skin exam: ecchymosis (upper and lower extremities, various stages, frail appearing skin) Lesions: lesion noted (mepelix bilateral lower anterior extremities and right forearm, no surrounding erythema,) and other (ganglion cyst wrist) Wounds: wounds noted (dressing intact to left knee. knee immobilizer intact. sensation and color intact distally,no edema) Neuro General: alert, awake and oriented x3 Extrem General: normal to inspection, full ROM and no pedal edema Objective Objective Clinical Data: Abnormal lab results 11/07/17 11/10/17 11/10/17 Range/Units 06:15 06:17 06:17 WBC 11.25 H (4.4-10.8) k/cumm RBC 2.92 L (4.00-5.20) m/cumm Hgb 9.5 L (12.0-15.5) g/dL Hct 29.2 L (36.0-46.0) % MCV 100.0 H (80-95) fL RDW 16.3 H (11.7-14.6) % Absolute Neutrophils 7.89 H (1.2-6.7) k/cumm Absolute Lymphocytes 1.11 L (1.2-3.4) k/cumm Absolute Monocytes 1.22 H (0.11-0.7) k/cumm BUN 26 H (7-18) mg/dL Calcium 8.4 L (8.5-10.1) mg/dL AST (15-37) U/L Total Protein (6.4-8.2) g/dL Albumin (3.4-5.0) g/dL Vancomycin Trough (10.0-20.0) ug/mL Crossmatch See Detail 11/10/17 11/10/17 Range/Units 06:17 15:13 WBC (4.4-10.8) k/cumm RBC (4.00-5.20) m/cumm Hgb (12.0-15.5) g/dL Hct (36.0-46.0) % MCV (80-95) fL RDW (11.7-14.6) % Absolute Neutrophils (1.2-6.7) k/cumm Absolute Lymphocytes (1.2-3.4) k/cumm Absolute Monocytes (0.11-0.7) k/cumm BUN (7-18) mg/dL Calcium (8.5-10.1) mg/dL AST 5 L (15-37) U/L Total Protein 5.1 L (6.4-8.2) g/dL Albumin 2.2 L (3.4-5.0) g/dL Vancomycin Trough 23.8 H* (10.0-20.0) ug/mL Crossmatch Vital Signs Temperature 36.8 C 11/10/17 15:55 Temperature Source Tympanic 11/10/17 15:55 Pulse 81 11/10/17 15:55 Pulse Rhythm Regular 11/10/17 01:26 Pulse 75 11/09/17 16:00 Respiratory Rate 17 11/10/17 15:55 Respiratory Effort Non-Labored 11/10/17 01:26 Respiratory Depth Normal 11/10/17 01:26 Respiratory Pattern Normal 11/10/17 01:26 Blood Pressure 143/72 H 11/10/17 15:55 Blood Pressure Mean 95 11/09/17 13:47 Blood Pressure Position Left Lateral 11/09/17 09:00 Pulse Oximetry 94 L 11/10/17 15:55 Oxygen Delivery Method Room Air 11/10/17 15:55 Oxygen Flow Rate 0 11/10/17 15:55 Fraction of Inspired Oxygen (FIO2) 30 11/05/17 18:20 Pain Level 8 11/10/17 14:24 Comment 11/07/17 11:12 Intake & Output 11/09/17 11/10/17 11/10/17 23:59 11:59 23:59 Intake Total 580 / 580 1660 / 1660 120 / 120 Output Total 2125 / 2125 2200 / 2200 150 / 150 Balance -1545 / -1545 -540 / -540 -30 / -30 Intake: IV 580 / 580 450 / 450 Oral 1210 / 1210 120 / 120 Output: Urine 2125 / 2125 2200 / 2200 150 / 150 Other: Urine Color Pale Straw Pale Yellow Urine Appearance Clear Clear Clear Comment Maldonado draining clear yellow urine QS. Stool Occult Blood Positive Positive Stool Size Small Small Stool Characteristics Soft Soft Black Liquid Black Laboratory Results WBC 11.25 k/cumm (4.4-10.8) H 11/10/17 06:17 RBC 2.92 m/cumm (4.00-5.20) L 11/10/17 06:17 Hgb 9.5 g/dL (12.0-15.5) L 11/10/17 06:17 Hct 29.2 % (36.0-46.0) L 11/10/17 06:17 MCV 100.0 fL (80-95) H 11/10/17 06:17 MCH 32.5 pg (27.0-33.0) 11/10/17 06:17 MCHC 32.5 g/dL (32.0-36.0) 11/10/17 06:17 RDW 16.3 % (11.7-14.6) H 11/10/17 06:17 Plt Count 268 x1000/uL (130-400) 11/10/17 06:17 MPV 9.9 fL (8.0-11.0) 11/10/17 06:17 Immature Gran % 5.0 11/10/17 06:17 Neutrophils % 70.1 11/10/17 06:17 Lymphocytes % 9.9 11/10/17 06:17 Monocytes % 10.8 11/10/17 06:17 Eosinophils % 3.7 11/10/17 06:17 Basophils % 0.5 11/10/17 06:17 Absolute Neutrophils 7.89 k/cumm (1.2-6.7) H 11/10/17 06:17 Absolute Lymphocytes 1.11 k/cumm (1.2-3.4) L 11/10/17 06:17 Absolute Monocytes 1.22 k/cumm (0.11-0.7) H 11/10/17 06:17 Absolute Eosinophils 0.42 k/cumm (0.0-0.7) 11/10/17 06:17 Absolute Basophils 0.06 k/cumm (0.0-0.2) 11/10/17 06:17 VBG pH 7.44 (7.32-7.43) H 11/05/17 20:55 VBG pCO2 40 mm/Hg (34-47) 11/05/17 20:55 VBG pO2 138 mm/Hg (28-44) H 11/05/17 20:55 VBG HCO3 27 mmol/L (22-28) 11/05/17 20:55 VBG Total CO2 Not Applicable 11/05/17 20:55 VBG O2 Saturation > 99 % (70-80) H 11/05/17 20:55 VBG Base Excess 2.9 mmol/L (-3-3) 11/05/17 20:55 Sodium 140 mmol/L (136-145) 11/10/17 06:17 Potassium 4.7 mmol/L (3.5-5.1) D 11/10/17 06:17 Chloride 103 mmol/L (98-107) 11/10/17 06:17 Carbon Dioxide 29.6 mmol/L (21.0-32.0) 11/10/17 06:17 Anion Gap 7.4 mmol/L (3-11) 11/10/17 06:17 BUN 26 mg/dL (7-18) H 11/10/17 06:17 Creatinine 0.83 mg/dL (0.55-1.02) 11/10/17 06:17 Estimated GFR/1.73 m2 >= 60.00 (mL/min/1.73m2) 11/10/17 06:17 Glucose 87 mg/dL (70-100) 11/10/17 06:17 Lactate 1.2 mmol/L (0.6-1.4) 11/06/17 09:00 Calcium 8.4 mg/dL (8.5-10.1) L 11/10/17 06:17 Iron 9 ug/dL (50-175) L 11/06/17 09:00 TIBC 176 ug/dL (250-450) L 11/06/17 09:00 Transferrin % Sat 5 % (15-50) L 11/06/17 09:00 Ferritin 146 ng/mL (8-388) 11/06/17 09:00 Total Bilirubin 0.3 mg/dL (0.2-1.0) 11/10/17 06:17 Conjugated Bilirubin 0.07 mg/dL (0.00-0.20) 11/10/17 06:17 AST 5 U/L (15-37) L 11/10/17 06:17 ALT 71 U/L (12-78) 11/10/17 06:17 Alkaline Phosphatase 90 U/L (46-116) 11/10/17 06:17 Troponin I < 0.02 ng/mL (0.00-0.06) 11/05/17 17:33 Total Protein 5.1 g/dL (6.4-8.2) L 11/10/17 06:17 Albumin 2.2 g/dL (3.4-5.0) L 11/10/17 06:17 Vitamin B12 843 pg/mL (193-986) 11/06/17 09:00 Folate > 20.0 ng/mL (8.6-20.0) H 11/06/17 09:00 TSH Cancelled 11/05/17 17:34 Urine Color Yellow (Yellow) 11/05/17 18:21 Urine Clarity Clear 11/05/17 18:21 Urine pH 5.5 (5-8) 11/05/17 18:21 Ur Specific [place] 1.015 (1.005-1.025) 11/05/17 18:21 Urine Protein 100 mg/dL (Negative) H 11/05/17 18:21 Urine Ketones Negative mg/dL (Negative) 11/05/17 18:21 Urine Blood Trace-intact (Negative) H 11/05/17 18:21 Urine Nitrite Negative (Negative) 11/05/17 18:21 Urine Bilirubin Negative (Negative) 11/05/17 18:21 Urine Urobilinogen 0.2 EU/dL (Up TO 0.2) 11/05/17 18:21 Ur Leukocyte Esterase Negative (Negative) 11/05/17 18:21 Urine RBC Negative (0-2) 11/05/17 18:21 Urine WBC 5-10 HPF (0-5) 11/05/17 18:21 Ur Epithelial Cells Few HPF (Negative) 11/05/17 18:21 Urine Crystals Few amorphous HPF (Negative) 11/05/17 18:21 Urine Bacteria Negative HPF (Negative) 11/05/17 18:21 Urine Casts 3-5 hyaline LPF (Negative) 11/05/17 18:21 Urine Mucus Negative (Negative) 11/05/17 18:21 Ur Culture Indicated? C&s done as ordered 11/05/17 18:21 Urine Glucose Negative mg/dL (Negative) 11/05/17 18:21 Stool Campylobacter PCR See comments 11/06/17 10:15 Stool Salmonella PCR See comments 11/06/17 10:15 Stool Shigella PCR See comments 11/06/17 10:15 Vancomycin Trough 23.8 ug/mL (10.0-20.0) H* 11/10/17 15:13 Shiga Toxin (PCR) See comments 11/06/17 10:15 Patient ABO/Rh O Positive 11/07/17 06:15 Antibody Screen Negative 11/07/17 06:15 Crossmatch See Detail 11/07/17 06:15
[2017-11-10] MEDS: VANCOMYCIN 750 MG in Normal Saline 250 ML 166.6666 MG IVPB (17:28)
[2017-11-10] MEDS: Lactobacillus Acidophilus CAP 1 CAP PO (19:33)
[2017-11-10 23:58] VITALS: BP 158/71; PULSE 89; RESP 19; TEMP 37.4; O2SAT 98
[2017-11-11] MEDS: oxyCODONE 15 MG TAB PO ×5 (04:17→21:16)
[2017-11-11] MEDS: LORazepam 0.5 MG TAB PO ×3 (04:57→21:16)
[2017-11-11 06:35] LABS: Abs Immature Grans 0.89 k/cumm (0.0-0.09); HCT 28.5 % (36.0-46.0); HGB 9.2 g/dL (12.0-15.5); Mean Corp. HGB Concentration 32.3 g/dL (32.0-36.0); Mean Corpuscular Hemoglobin 32.5 pg (27.0-33.0); Mean Corpuscular Volume 100.7 fL (80-95); Mean Platelet Volume 9.4 fL (8.0-11.0); Platelet Count 281 x1000/uL (130-400); RBC 2.83 m/cumm (4.00-5.20); RBC Distribution Width 16.2 % (11.7-14.6); White Blood Cell Count 14.17 k/cumm (4.4-10.8)
[2017-11-11 06:45] LABS: Magnesium 1.5 mg/dL (1.8-2.4)
[2017-11-11 06:49] LABS: ALT 62 U/L (12-78); AST 32 U/L (15-37); Albumin 2.3 g/dL (3.4-5.0); Alkaline Phosphatase 87 U/L (46-116); BUN 22 mg/dL (7-18); Bilirubin, Total 0.4 mg/dL (0.2-1.0); CREATININE 0.79 mg/dL (0.55-1.02); Calcium 8.7 mg/dL (8.5-10.1); Chloride 97 mmol/L (98-107); Glucose 101 mg/dL (70-100); Sodium 138 mmol/L (136-145); Total Protein 5.6 g/dL (6.4-8.2)
[2017-11-11 07:01] LABS: Absolute Eosinophil Count 0.57 k/cumm (0.0-0.7); Absolute Monocyte Count 1.28 k/cumm (0.11-0.7)
[2017-11-11 07:09] LABS: Absolute Lymphocyte Count 1.42 k/cumm (1.2-3.4); Anisocytosis 2+; Diff Comment Manual Differential; Polychromasia Present
[2017-11-11 07:49] VITALS: BP 190/90; PULSE 69; RESP 18; TEMP 36.4; O2SAT 96
[2017-11-11] MEDS: Acetaminophen 325 MG TAB PO ×3 (09:23→17:15)
[2017-11-11] MEDS: Sucralfate 1 GM TAB PO ×4 (09:23→21:00)
[2017-11-11] MEDS: Metoprolol 25 MG TAB PO ×2 (09:23→21:00)
[2017-11-11] MEDS: Lactobacillus Acidophilus CAP 1 CAP PO ×3 (09:23→21:00)
[2017-11-11] MEDS: Furosemide 20 MG TAB PO (09:23)
[2017-11-11] MEDS: Pantoprazole 40 MG VIAL IVP ×2 (09:24→20:59)
[2017-11-11] MEDS: Hydrocortisone SOD SUC. 100 MG VIAL 20 MG IVP (09:24)
[2017-11-11] MEDS: CEFEPIME 2 GM in Normal Saline 100 ML IVPB ×3 (09:25→23:41)
[2017-11-11] MEDS: Normal Saline Flush 10 ML SYR IVP ×3 (09:25→21:00)
--- NOTE | 2017-11-11 10:53 | PGE_ITS ---
Assessment and Plan (1) Discharge planning issues: Current visit: No Status: Acute Will return to [facility] and rehab once medically stable (2) On esomeprazole prophylaxis: Current visit: No Status: Acute We will continue GI prophylaxis with PPI twice daily and Carafate while hospitalized. Patient is at increased risk for gastric ulcer due to hospitalization, chronic steroid use to treat her RA and daily aspirin. Her stools have been positive for occult blood (3) Patellar fracture: Current visit: No Status: Acute Was admitted at [facility] with repair of left patellar fracture on November 01, 2017. Continue routine postoperative care. Knee immobilizer is in place. Pain is managed. Dressing is dry and intact. Continue PT OT (4) Diarrhea: Current visit: No Status: Acute Patient reports improvement in symptoms. C. difficile PCR pending. We will continue lactobacillus and electrolyte replacement (5) DVT prophylaxis: Current visit: No Status: Acute THOMPSON stockings and SCDs in setting of recent GI bleed (6) Aortic stenosis: Current visit: No Status: Chronic Has been hemodynamically stable continue to closely monitor fluid status and vital signs. She is stable on her oral diuretic. Will continue aspirin beta treva statin (7) Anemia: Current visit: No Status: Chronic H&H is stable we will continue to monitor. add iron supplement. Low iron, but also low TIBC and normal ferritin. Likely Anemia of Chronic Disease with potential concurrent blood loss. Heme + stool as checked. B12, FA, and TSH also checked and normal. (8) Hypertension: Current visit: No Status: Chronic Blood pressures have been stable continue statin and amlodipine (9) Rheumatoid arthritis: Current visit: No Status: Chronic Is on Solu-Cortef 20 mg IV push daily (10) Left lower lobe pneumonia: Current visit: No Status: Acute Respiratory status stable oxygenating well on room air. Today is day 7 on vancomycin and cefepime. Did have a bump in her white count today which could be due to her steroids she has been afebrile we will continue to closely monitor she runs fevers will repeat blood cultures (11) Leukocytosis: Current visit: No Status: Acute White count up today to 14 from 11.25. No obvious active ongoing infection. Respiratory status has been stable she is not complaining of any abdominal pain. She is on IV Solu-Cortef which could be etiology but also need to closely monitor for infection if she runs fever will che culture. We will just monitor for now Subjective Interval history since last seen: Patient is hemodynamically stable and afebrile she states she is having decreased bowel movements. She states she did get up to use the commode during the middle the night and since then just has not felt good her complaint is nonspecific she denies abdominal pain nausea or vomiting. Again states that her stooling has slowed down. She has not had fevers hemodynamically she has been stable. She has no shortness of breath or chest pain. She just states she feels fatigued and does not feel well. Physical therapy does report that she was not as strong or able to do as much as she did yesterday Exam Const General: cooperative, healthy appearing and comfortable Orientation: alert, awake and oriented x3 HENMD Mouth: moist mucous membranes Chest Chest: normal inspection of the chest Resp Effort & Inspection: normal respiratory effort and able to speak in complete sentences Auscultation: clear to auscultation bilaterally and diminished lung sounds bilaterally Cardio Rate: regular rate Rhythm: regular rhythm GI Inspection: normal to inspection Palpation: soft Auscultation: normal bowel sounds Skin General skin exam: no rashes or lesions noted Neuro General: alert, awake and oriented x3 Cognition: normal cognition Speech: speech normal Extrem Right lower extremity: knee (leg wrapped in bulky dressing and nader wrap, knee brace intact. no swelling or redness distally, good sensation and pulse. ); no edema Left lower extremity: no edema Psych Appearance: grossly normal and well kempt Affect: blunted Objective Objective Clinical Data: Abnormal lab results 11/07/17 11/10/17 11/11/17 Range/Units 06:15 15:13 06:20 WBC (4.4-10.8) k/cumm RBC (4.00-5.20) m/cumm Hgb (12.0-15.5) g/dL Hct (36.0-46.0) % MCV (80-95) fL RDW (11.7-14.6) % Absolute Neutrophils (1.2-6.7) k/cumm Absolute Monocytes (0.11-0.7) k/cumm Potassium (3.5-5.1) mmol/L Chloride (98-107) mmol/L Carbon Dioxide (21.0-32.0) mmol/L BUN (7-18) mg/dL Glucose (70-100) mg/dL Magnesium 1.5 L (1.8-2.4) mg/dL Total Protein (6.4-8.2) g/dL Albumin (3.4-5.0) g/dL Vancomycin Trough 23.8 H* (10.0-20.0) ug/mL Crossmatch See Detail 11/11/17 11/11/17 Range/Units 06:20 06:20 WBC 14.17 H (4.4-10.8) k/cumm RBC 2.83 L (4.00-5.20) m/cumm Hgb 9.2 L (12.0-15.5) g/dL Hct 28.5 L (36.0-46.0) % MCV 100.7 H (80-95) fL RDW 16.2 H (11.7-14.6) % Absolute Neutrophils 10.20 H (1.2-6.7) k/cumm Absolute Monocytes 1.28 H (0.11-0.7) k/cumm Potassium 3.0 L D (3.5-5.1) mmol/L Chloride 97 L (98-107) mmol/L Carbon Dioxide 35.0 H (21.0-32.0) mmol/L BUN 22 H (7-18) mg/dL Glucose 101 H (70-100) mg/dL Magnesium (1.8-2.4) mg/dL Total Protein 5.6 L (6.4-8.2) g/dL Albumin 2.3 L (3.4-5.0) g/dL Vancomycin Trough (10.0-20.0) ug/mL Crossmatch Vital Signs Temperature 37.4 C 11/10/17 23:58 Temperature Source Tympanic 11/10/17 23:58 Pulse 89 11/10/17 23:58 Pulse Rhythm Regular 11/10/17 21:10 Pulse 75 11/09/17 16:00 Respiratory Rate 19 11/10/17 23:58 Respiratory Effort Non-Labored 11/10/17 21:10 Respiratory Depth Normal 11/10/17 21:10 Respiratory Pattern Normal 11/10/17 21:10 Blood Pressure 158/71 H 11/10/17 23:58 Blood Pressure Mean 95 11/09/17 13:47 Blood Pressure Position Left Lateral 11/09/17 09:00 Pulse Oximetry 98 11/10/17 23:58 Oxygen Delivery Method Room Air 11/10/17 23:58 Oxygen Flow Rate 0 11/10/17 23:58 Fraction of Inspired Oxygen (FIO2) 30 11/05/17 18:20 Pain Level 8 11/11/17 09:24 Comment 11/07/17 11:12 Intake & Output 11/10/17 11/10/17 11/11/17 11:59 23:59 11:59 Intake Total 1660 / 1660 460 / 460 140 / 140 Output Total 2200 / 2200 1400 / 1400 2850 / 2850 Balance -540 / -540 -940 / -940 -2710 / -2710 Intake: IV 450 / 450 100 / 100 140 / 140 Oral 1210 / 1210 360 / 360 Output: Urine 2200 / 2200 1400 / 1400 2850 / 2850 Other: Urine Color Straw Yellow Pale Yellow Urine Appearance Clear Cloudy Clear Stool Occult Blood Positive Stool Size Small Moderate Stool Characteristics Soft Liquid Liquid Black Laboratory Results WBC 14.17 k/cumm (4.4-10.8) H 11/11/17 06:20 RBC 2.83 m/cumm (4.00-5.20) L 11/11/17 06:20 Hgb 9.2 g/dL (12.0-15.5) L 11/11/17 06:20 Hct 28.5 % (36.0-46.0) L 11/11/17 06:20 MCV 100.7 fL (80-95) H 11/11/17 06:20 MCH 32.5 pg (27.0-33.0) 11/11/17 06:20 MCHC 32.3 g/dL (32.0-36.0) 11/11/17 06:20 RDW 16.2 % (11.7-14.6) H 11/11/17 06:20 Plt Count 281 x1000/uL (130-400) 11/11/17 06:20 MPV 9.4 fL (8.0-11.0) 11/11/17 06:20 Immature Gran % See Differential 11/11/17 06:20 Neutrophils % 70.0 11/11/17 06:20 Lymphocytes % 10.0 11/11/17 06:20 Monocytes % 9.0 11/11/17 06:20 Eosinophils % 4.0 11/11/17 06:20 Basophils % 0.0 11/11/17 06:20 Absolute Neutrophils 10.20 k/cumm (1.2-6.7) H 11/11/17 06:20 Band Neutrophils 2.0 % 11/11/17 06:20 Absolute Lymphocytes 1.42 k/cumm (1.2-3.4) 11/11/17 06:20 Absolute Monocytes 1.28 k/cumm (0.11-0.7) H 11/11/17 06:20 Absolute Eosinophils 0.57 k/cumm (0.0-0.7) 11/11/17 06:20 Absolute Basophils 0.00 k/cumm (0.0-0.2) 11/11/17 06:20 Metamyelocytes 3.0 % 11/11/17 06:20 Myelocytes 2.0 % 11/11/17 06:20 Differential Comment Manual differential 11/11/17 06:20 RBC Morphology See below 11/11/17 06:20 Polychromasia Present 11/11/17 06:20 Anisocytosis 2+ 11/11/17 06:20 VBG pH 7.44 (7.32-7.43) H 11/05/17 20:55 VBG pCO2 40 mm/Hg (34-47) 11/05/17 20:55 VBG pO2 138 mm/Hg (28-44) H 11/05/17 20:55 VBG HCO3 27 mmol/L (22-28) 11/05/17 20:55 VBG Total CO2 Not Applicable 11/05/17 20:55 VBG O2 Saturation > 99 % (70-80) H 11/05/17 20:55 VBG Base Excess 2.9 mmol/L (-3-3) 11/05/17 20:55 Sodium 138 mmol/L (136-145) 11/11/17 06:20 Potassium 3.0 mmol/L (3.5-5.1) L D 11/11/17 06:20 Chloride 97 mmol/L (98-107) L 11/11/17 06:20 Carbon Dioxide 35.0 mmol/L (21.0-32.0) H 11/11/17 06:20 Anion Gap 6.0 mmol/L (3-11) 11/11/17 06:20 BUN 22 mg/dL (7-18) H 11/11/17 06:20 Creatinine 0.79 mg/dL (0.55-1.02) 11/11/17 06:20 Estimated GFR/1.73 m2 >= 60.00 (mL/min/1.73m2) 11/11/17 06:20 Glucose 101 mg/dL (70-100) H 11/11/17 06:20 Lactate 1.2 mmol/L (0.6-1.4) 11/06/17 09:00 Calcium 8.7 mg/dL (8.5-10.1) 11/11/17 06:20 Magnesium 1.5 mg/dL (1.8-2.4) L 11/11/17 06:20 Iron 9 ug/dL (50-175) L 11/06/17 09:00 TIBC 176 ug/dL (250-450) L 11/06/17 09:00 Transferrin % Sat 5 % (15-50) L 11/06/17 09:00 Ferritin 146 ng/mL (8-388) 11/06/17 09:00 Total Bilirubin 0.4 mg/dL (0.2-1.0) 11/11/17 06:20 Conjugated Bilirubin 0.07 mg/dL (0.00-0.20) 11/10/17 06:17 AST 32 U/L (15-37) 11/11/17 06:20 ALT 62 U/L (12-78) 11/11/17 06:20 Alkaline Phosphatase 87 U/L (46-116) 11/11/17 06:20 Troponin I < 0.02 ng/mL (0.00-0.06) 11/05/17 17:33 Total Protein 5.6 g/dL (6.4-8.2) L 11/11/17 06:20 Albumin 2.3 g/dL (3.4-5.0) L 11/11/17 06:20 Vitamin B12 843 pg/mL (193-986) 11/06/17 09:00 Folate > 20.0 ng/mL (8.6-20.0) H 11/06/17 09:00 TSH Cancelled 09/24/18 17:34 Urine Color Yellow (Yellow) 11/05/17 18:21 Urine Clarity Clear 11/05/17 18:21 Urine pH 5.5 (5-8) 11/05/17 18:21 Ur Specific [place] 1.015 (1.005-1.025) 11/05/17 18:21 Urine Protein 100 mg/dL (Negative) H 11/05/17 18:21 Urine Ketones Negative mg/dL (Negative) 11/05/17 18:21 Urine Blood Trace-intact (Negative) H 11/05/17 18:21 Urine Nitrite Negative (Negative) 11/05/17 18:21 Urine Bilirubin Negative (Negative) 11/05/17 18:21 Urine Urobilinogen 0.2 EU/dL (Up TO 0.2) 11/05/17 18:21 Ur Leukocyte Esterase Negative (Negative) 11/05/17 18:21 Urine RBC Negative (0-2) 11/05/17 18:21 Urine WBC 5-10 HPF (0-5) 11/05/17 18:21 Ur Epithelial Cells Few HPF (Negative) 11/05/17 18:21 Urine Crystals Few amorphous HPF (Negative) 11/05/17 18:21 Urine Bacteria Negative HPF (Negative) 11/05/17 18:21 Urine Casts 3-5 hyaline LPF (Negative) 11/05/17 18:21 Urine Mucus Negative (Negative) 11/05/17 18:21 Ur Culture Indicated? C&s done as ordered 11/05/17 18:21 Urine Glucose Negative mg/dL (Negative) 11/05/17 18:21 Stool Campylobacter PCR See comments 11/06/17 10:15 Stool Salmonella PCR See comments 11/06/17 10:15 Stool Shigella PCR See comments 11/06/17 10:15 Vancomycin Trough 23.8 ug/mL (10.0-20.0) H* 11/10/17 15:13 Shiga Toxin (PCR) See comments 11/06/17 10:15 Patient ABO/Rh O Positive 11/07/17 06:15 Antibody Screen Negative 11/07/17 06:15 Crossmatch See Detail 11/07/17 06:15
[2017-11-11] MEDS: VANCOMYCIN 750 MG in Normal Saline 250 ML 167 MG IVPB (12:33)
[2017-11-11] MEDS: Potassium Chloride 20 MEQ TABCR PO ×2 (13:37→21:00)
[2017-11-11] MEDS: MAGNESIUM SULFATE 1 GM/100 ML BAG IVPB (14:26)
[2017-11-11 16:16] VITALS: BP 136/71; PULSE 82; RESP 18; TEMP 37; O2SAT 93
[2017-11-11] MEDS: Ferrous Sulfate 325 MG TAB PO (21:00)
[2017-11-11 23:39] VITALS: BP 160/70; PULSE 71; RESP 16; TEMP 37.1; O2SAT 91
[2017-11-12] MEDS: Acetaminophen 325 MG TAB PO ×4 (05:02→22:30)
[2017-11-12] MEDS: oxyCODONE 15 MG TAB PO ×5 (05:03→21:02)
[2017-11-12] MEDS: VANCOMYCIN 750 MG in Normal Saline 250 ML 166 MG IVPB (05:16)
[2017-11-12 07:15] LABS: HCT 27.1 % (36.0-46.0); HGB 8.5 g/dL (12.0-15.5); Mean Corp. HGB Concentration 31.4 g/dL (32.0-36.0); Mean Corpuscular Volume 101.9 fL (80-95); Mean Platelet Volume 9.8 fL (8.0-11.0); Platelet Count 292 x1000/uL (130-400); RBC 2.66 m/cumm (4.00-5.20); RBC Distribution Width 16.6 % (11.7-14.6); White Blood Cell Count 13.62 k/cumm (4.4-10.8)
[2017-11-12 07:21] LABS: ALT 54 U/L (12-78); AST 31 U/L (15-37); Albumin 2.2 g/dL (3.4-5.0); Alkaline Phosphatase 80 U/L (46-116); Anion Gap 3.9 mmol/L (3-11); BUN 23 mg/dL (7-18); Bilirubin, Total 0.3 mg/dL (0.2-1.0); CO2 33.1 mmol/L (21.0-32.0); CREATININE 0.92 mg/dL (0.55-1.02); Calcium 8.5 mg/dL (8.5-10.1); Chloride 101 mmol/L (98-107); Estimated GFR 59.19 (mL/min/1.73m2); Glucose 96 mg/dL (70-100); Magnesium 1.7 mg/dL (1.8-2.4); Potassium 3.5 mmol/L (3.5-5.1); Sodium 138 mmol/L (136-145); Total Protein 5.3 g/dL (6.4-8.2)
[2017-11-12 07:35] VITALS: BP 176/69; PULSE 82; RESP 17; TEMP 36.1; O2SAT 94
[2017-11-12 07:46] LABS: Absolute Basophil Count 0.14 k/cumm (0.0-0.2); Absolute Eosinophil Count 0.14 k/cumm (0.0-0.7); Absolute Monocyte Count 1.36 k/cumm (0.11-0.7); Absolute Neutrophil Count 9.67 k/cumm (1.2-6.7)
[2017-11-12 07:47] LABS: Anisocytosis 1+; Basophilic Stippling Present; Diff Comment Manual Differential; Hypochromasia 1+; Macrocytosis 1+; Microcytosis 1+
[2017-11-12 07:48] LABS: Polychromasia Present
[2017-11-12] MEDS: Normal Saline Flush 10 ML SYR IVP ×3 (07:55→19:06)
[2017-11-12] MEDS: Hydrocortisone SOD SUC. 100 MG VIAL 20 MG IVP (07:55)
[2017-11-12] MEDS: Pantoprazole 40 MG VIAL IVP ×2 (07:56→19:05)
[2017-11-12] MEDS: Metoprolol 25 MG TAB PO ×2 (08:00→19:05)
[2017-11-12] MEDS: Ferrous Sulfate 325 MG TAB PO ×2 (08:00→19:05)
[2017-11-12] MEDS: Lactobacillus Acidophilus CAP 1 CAP PO ×3 (08:00→19:05)
[2017-11-12] MEDS: Furosemide 20 MG TAB PO (08:00)
[2017-11-12] MEDS: Potassium Chloride 20 MEQ TABCR PO ×4 (08:00→19:05)
[2017-11-12] MEDS: Sucralfate 1 GM TAB PO ×4 (08:01→21:02)
--- NOTE | 2017-11-12 08:32 | PT.INDS ---
Date of service: 11/12/17 Time of Service: 08:33 PT Notes Inpatient Physical Therapy Discharge Summary Date: 11/12/17 for 11/10/17 Dates of Service: 11/07/17-11/10/17 SUBJECTIVE: NT OBJECTIVE: 11/07/17-11/10/17 Bed Mobility/Transfers: * hinged knee brace on for all transfers -10 degrees Supine-sit: minAx1 Sit-stand: modAx1 with FWW Bed-chair: minAx1 with FWW Stand-sit: minAx1 for L LE Gait: * hinged knee brace on for all transfers -10 degrees CGA with FWW, WBAT L LE 3-5ft Balance: Static Sitting: normal Dynamic Sitting: normal Static Standing: fair Dynamic Standing: fair Assessment: Pt is a 77yr old female admitted with left lower lobe pneumonia, sepsis syndrome s/p left patella fracture 11/01/17 in setting of osteoporosis, rheumatoid arthritis bilateral hands, 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 Patient was seen for & PT visits. Progressed from maxA bed transfers to Ирина, from Ирина gait with FWW 3ft to CGA gait with FWW 3-5ft. Pt was transferred to [facility] for continued therapy. Goals: Goals X1 week 1. Supine-Sit minAx1 2. Sit-Supine minAx1 3. Sit-Stand SBA with FWW, hinged brace 4. Stand-Sit SBA 5. Bed-Chair CGA with FWW, hinged brace 6. Chair-Bed CGA with FWW hinged brace 7. Gait CGA with FWW, hinged knee brace, 30ftx2 WBAT L LE Pt met goals # 1, 2 - continued PT recommended to meet remaining goals DISCHARGE RECOMMENDATIONS: Pt transferred to [facility] G Codes in the area mobility of walking and moving around: projected status GP [id number]. Discharge status (if discharging) GP [id number] CL Marilee Dawson PT .
[2017-11-12] MEDS: CEFEPIME 2 GM in Normal Saline 100 ML IVPB (09:55)
--- NOTE | 2017-11-12 10:16 | OT.INDS ---
Date of service: 11/12/17 Time of Service: 10:16 Occupational Therapy Notes Occupational Therapy Inpatient Discharge Summary Date: 11/12/17 for 11/11/17 Dates of Service: 11/09/17 PRECAUTIONS: SUBJECTIVE: Not tested. OBJECTIVE: Dates of Service: 11/09/17 ROM: RUE AROM shoulder flexion 90-95* with slight pain, Wrist and elbow WNL, Hand WFL arthritis L UE AROM shoulder flexion 95* with slight pain, wrist and elbow WNL, Hand WFL arhtritis STRENGTH: RUE Shoulder flexion 2/5, bicep 3/5, tag stringer 3/5 LUE Shoulder flexion 2/5, bicep 3/5, tag stringer 3/5 GROOMING sitting in chair pt was able to (I) perform teeth brushing but needed set up max (A). BALANCE: Static sitting normal ASSESSMENT: Pt was seen for OT consult for (L) patellar fx, s/p repair and history of RA. Pt was seen for OT consult only on 11/09/17. Pt's baseline activity tolerance as reported on 11/09/17 was as follows: Functional Mobility- Walker, Transport Chair as needed Dressing- (I) UE, Difficulty pulling up pants in standing position. Grooming- Performed 1/2 at sink and 1/2 in chair due to decreased activity tolerance. Toileting- Uses raised toilet seat (I) Bathing- In sitting (I) with help from daughter as needed. Feeding- (I) Cooking- (I) Pt went from acute rehab to Swing rehab status on 11/11/17. Pt was seen for OT consult only. D/C pt from acute OT services. GOALS 1. Transfers SBA, FWW, hinged brace 2. Dressing (I) UE dressing, Mod (I) LE dressing with minimal verbal cues 3. Bathing In sitting (I) with UE, Min (A) LE 4. Toileting- On toilet min (A) 5. Grooming- Standing at sink with FWW with (I) set up and teeth brushing/ hair routine. Pt did not meet OT goals. PLAN: Pt went from acute rehab status to swing rehab status on 11/11/17. D/C pt from OT services acute rehab. TREATMENT CODES/TIME: G Codes in the area of self- : washing oneself, toileting, dressing, eating and drinking, current status [id number] CK projected status GP [id number], discharge status GP [id number].
[2017-11-12] MEDS: Normal Saline 500 ML 30 ML IV (13:03)
--- NOTE | 2017-11-12 13:06 | PT.INTREAT ---
Date of service: 11/12/17 Time of Service: 13:06 PT Notes Inpatient Physical Therapy Treatment Note Date: 11/12/17 PRECAUTIONS: WBAT on L SUBJECTIVE: Patient states that she is feeling anxious about walking today. OBJECTIVE: PAIN: Patient complains of left knee pain with weight bearing BED MOBILITY/TRANSFERS Sit-stand: CGA with cueing for technique (performed x4) Stand-sit: CGA with cueing for technique (performed x4) GAIT Assistive Device: FWW Weight bearing: WBAT on L Assist: Mod A Distance: 3 steps +10 steps Deviation: Patient required cueing for technique, as well as encouragement, patient demonstrates extreme anxiety with gait training today ASSESSMENT: Patient appeared limited due to anxiety with gait training. Patient required cueing for technique for transfers as well as gait training. Patient would benefit from continued gait training as well as strengthening for improved ability to perform daily functional tasks. PLAN: Continue with PTs POC TREATMENT CODE/TIME: 25 minutes; TA x2
--- NOTE | 2017-11-12 15:22 | PT.INTREAT ---
Date of service: 11/12/17 Time of Service: 15:23 PT Notes Inpatient Physical Therapy Treatment Note Date: 11/12/17 PRECAUTIONS:WBAT on L SUBJECTIVE: Ashia reports that she is tired today and that she feels anxious today. OBJECTIVE: PAIN: Patient c/o pain in L knee with weight bearing BED MOBILITY/TRANSFERS Sit-supine: Mod A with HOB flat Sit-stand: CGA with cueing for technique (performed 2x) Stand-sit: CGA with cueing for technique (performed 2x) GAIT Assistive Device: FWW Weight bearing: WBAT on L Assist: Mod A Distance: 10 steps Deviation: Cueing for technique and breathing, pt required encauragement, very anxious THEREX: Patient completed a LE strengthening and stabilization program, as per flow sheet. ASSESSMENT: Patient continued to appear limited due to anxiety with transfers and gait training. She would benefit from continued strengthening and gait and transfer training to improve ability to perform daily functional tasks at a more independent level. PLAN: Continue with PT's POC TREATMENT CODE/TIME: 30 minutes; TA/NUNO
[2017-11-12 16:03] VITALS: BP 151/70; PULSE 83; RESP 19; TEMP 37.3; O2SAT 92
--- NOTE | 2017-11-12 18:49 | W.PM.PROGNOT ---
Assessment and Plan (1) Left lower lobe pneumonia: Current visit: Yes Status: Acute Her left lower lobe pneumonia is now completely treated. Will DC IV antibiotics. She still has a minimal O2 requirement. Continue pulmonary toilet and mobilization. Continue to monitor for any signs of fever or recurrent infection. (2) Patellar fracture: Current visit: Yes Status: Acute The left patellar wound is healing well and shows no sign of infection. She continues in the knee immobilizer, weight-bear as tolerated. She has very poor mobility at baseline per her daughter. Continue physical therapy and rehab. (3) Diarrhea: Current visit: Yes Status: Acute She has had loose stools which sound like they are chronic. Some of them could be related to the large amount of antibiotic she has had recently. C. difficile study was negative. She is off of IV fluids. Continue to monitor for signs of recurrent C. difficile which has thus far been negative x2 (4) Aortic stenosis: Current visit: Yes Status: Chronic (5) Anemia: Current visit: Yes Status: Chronic No evidence of decompensation or congestive heart failure. Continue Lasix 20 mg daily. Will give potassium replacement today. DC Palomares catheter. Ice expect she will be able to transfer to [facility] and rehab by tomorrow or the next day if stable. (6) Discharge planning issues: Current visit: Yes Status: Acute On discussion with her daughter patient has an advanced directive and is very clear she does not want aggressive or heroic measures if she were to stop breathing or her heart stopped. We will change her to DNR/DNI. Plan is for transfer to [facility] and rehab once stable, likely in the next 24-48 hours. Subjective Interval history since last seen: Patient is overall feeling somewhat better though her cognitive function has declined a bit per her daughter. She is been here for 7 days now. Her recovery has been somewhat slow and encumbered by loose stools/diarrhea. Today she is not complaining of any painful conditions. She is having no respiratory difficulty. She is not having any fever chills or rigors she states she does not want to leave until we are sure there is no chance she has any remaining infection. Exam Narrative Exam Narrative: On exam she is sitting in the chair. She looks overall comfortable. Her posterior lung exam is clear and dry bilaterally. Her heart sounds are regular, no murmur. Abdomen soft and nontender. I took the dressing down on her left knee the vertical incision over her patella is clean and dry. There was no irritability to the knee itself. She flexed it slightly beyond where the brace was without any apparent discomfort. Her dressing and brace was replaced without difficulty. Physical therapy then had her stand and walk which she did with some difficulty. Objective Objective Clinical Data: Abnormal lab results 11/12/17 11/12/17 Range/Units 06:45 06:45 WBC 13.62 H (4.4-10.8) k/cumm RBC 2.66 L (4.00-5.20) m/cumm Hgb 8.5 L (12.0-15.5) g/dL Hct 27.1 L (36.0-46.0) % MCV 101.9 H (80-95) fL MCHC 31.4 L (32.0-36.0) g/dL RDW 16.6 H (11.7-14.6) % Absolute Neutrophils 9.67 H (1.2-6.7) k/cumm Absolute Monocytes 1.36 H (0.11-0.7) k/cumm Carbon Dioxide 33.1 H (21.0-32.0) mmol/L BUN 23 H (7-18) mg/dL Magnesium 1.7 L (1.8-2.4) mg/dL Total Protein 5.3 L (6.4-8.2) g/dL Albumin 2.2 L (3.4-5.0) g/dL Vital Signs Temperature 37.3 C 11/12/17 16:03 Temperature Source Tympanic 11/12/17 16:03 Pulse 83 11/12/17 16:03 Pulse Rhythm Regular 11/12/17 07:35 Pulse 75 11/09/17 16:00 Respiratory Rate 19 11/12/17 16:03 Respiratory Effort 11/12/17 07:35 Respiratory Depth Normal 11/12/17 07:35 Respiratory Pattern Normal 11/11/17 07:57 Blood Pressure 151/70 H 11/12/17 16:03 Blood Pressure Mean 95 11/09/17 13:47 Blood Pressure Position Left Lateral 11/09/17 09:00 Pulse Oximetry 92 L 11/12/17 16:03 Oxygen Delivery Method Room Air 11/12/17 16:03 Oxygen Flow Rate 0 11/12/17 16:03 Fraction of Inspired Oxygen (FIO2) 30 11/05/17 18:20 Pain Level 8 11/12/17 17:13 Comment 11/07/17 11:12 Intake & Output 11/11/17 11/12/17 11/12/17 23:59 11:59 23:59 Intake Total 1490 / 1490 900 / 900 698.5 / 698.5 Output Total 1100 / 1100 1100 / 1100 1200 / 1200 Balance 390 / 390 -200 / -200 -501.5 / -501.5 Intake: IV 460 / 460 550 / 550 28.5 / 28.5 Oral 1030 / 1030 350 / 350 670 / 670 Output: Urine 1100 / 1100 1100 / 1100 1200 / 1200 Other: Urine Color Yellow Yellow Urine Appearance Cloudy Cloudy Comment HNV-enc to drink well. Stool Size Small Small Stool Characteristics Soft Soft Liquid Laboratory Results WBC 13.62 k/cumm (4.4-10.8) H 11/12/17 06:45 RBC 2.66 m/cumm (4.00-5.20) L 11/12/17 06:45 Hgb 8.5 g/dL (12.0-15.5) L 11/12/17 06:45 Hct 27.1 % (36.0-46.0) L 11/12/17 06:45 MCV 101.9 fL (80-95) H 11/12/17 06:45 MCH 32.0 pg (27.0-33.0) 11/12/17 06:45 MCHC 31.4 g/dL (32.0-36.0) L 11/12/17 06:45 RDW 16.6 % (11.7-14.6) H 11/12/17 06:45 Plt Count 292 x1000/uL (130-400) 11/12/17 06:45 MPV 9.8 fL (8.0-11.0) 11/12/17 06:45 Immature Gran % See Differential 11/12/17 06:45 Neutrophils % 70.0 11/12/17 06:45 Lymphocytes % 11.0 11/12/17 06:45 Monocytes % 10.0 11/12/17 06:45 Eosinophils % 1.0 11/12/17 06:45 Basophils % 1.0 11/12/17 06:45 Absolute Neutrophils 9.67 k/cumm (1.2-6.7) H 11/12/17 06:45 Band Neutrophils 1.0 % 11/12/17 06:45 Absolute Lymphocytes 1.50 k/cumm (1.2-3.4) 11/12/17 06:45 Absolute Monocytes 1.36 k/cumm (0.11-0.7) H 11/12/17 06:45 Absolute Eosinophils 0.14 k/cumm (0.0-0.7) 11/12/17 06:45 Absolute Basophils 0.14 k/cumm (0.0-0.2) 11/12/17 06:45 Metamyelocytes 2.0 % 11/12/17 06:45 Myelocytes 4.0 % 11/12/17 06:45 Differential Comment Manual differential 11/12/17 06:45 RBC Morphology See below 11/11/17 06:20 Polychromasia Present 11/12/17 06:45 Hypochromasia 1+ 11/12/17 06:45 Basophilic Stippling Present 11/12/17 06:45 Anisocytosis 1+ 11/12/17 06:45 Microcytosis 1+ 11/12/17 06:45 Macrocytosis 1+ 11/12/17 06:45 VBG pH 7.44 (7.32-7.43) H 11/05/17 20:55 VBG pCO2 40 mm/Hg (34-47) 11/05/17 20:55 VBG pO2 138 mm/Hg (28-44) H 11/05/17 20:55 VBG HCO3 27 mmol/L (22-28) 11/05/17 20:55 VBG Total CO2 Not Applicable 11/05/17 20:55 VBG O2 Saturation > 99 % (70-80) H 11/05/17 20:55 VBG Base Excess 2.9 mmol/L (-3-3) 11/05/17 20:55 Sodium 138 mmol/L (136-145) 11/12/17 06:45 Potassium 3.5 mmol/L (3.5-5.1) 11/12/17 06:45 Chloride 101 mmol/L (98-107) 11/12/17 06:45 Carbon Dioxide 33.1 mmol/L (21.0-32.0) H 11/12/17 06:45 Anion Gap 3.9 mmol/L (3-11) 11/12/17 06:45 BUN 23 mg/dL (7-18) H 11/12/17 06:45 Creatinine 0.92 mg/dL (0.55-1.02) 11/12/17 06:45 Estimated GFR/1.73 m2 59.19 (mL/min/1.73m2) 11/12/17 06:45 Glucose 96 mg/dL (70-100) 11/12/17 06:45 Lactate 1.2 mmol/L (0.6-1.4) 11/06/17 09:00 Calcium 8.5 mg/dL (8.5-10.1) 11/12/17 06:45 Magnesium 1.7 mg/dL (1.8-2.4) L 11/12/17 06:45 Iron 9 ug/dL (50-175) L 11/06/17 09:00 TIBC 176 ug/dL (250-450) L 11/06/17 09:00 Transferrin % Sat 5 % (15-50) L 11/06/17 09:00 Ferritin 146 ng/mL (8-388) 11/06/17 09:00 Total Bilirubin 0.3 mg/dL (0.2-1.0) 11/12/17 06:45 Conjugated Bilirubin 0.07 mg/dL (0.00-0.20) 11/10/17 06:17 AST 31 U/L (15-37) 11/12/17 06:45 ALT 54 U/L (12-78) 11/12/17 06:45 Alkaline Phosphatase 80 U/L (46-116) 11/12/17 06:45 Troponin I < 0.02 ng/mL (0.00-0.06) 11/05/17 17:33 Total Protein 5.3 g/dL (6.4-8.2) L 11/12/17 06:45 Albumin 2.2 g/dL (3.4-5.0) L 11/12/17 06:45 Vitamin B12 843 pg/mL (193-986) 11/06/17 09:00 Folate > 20.0 ng/mL (8.6-20.0) H 11/06/17 09:00 TSH Cancelled 11/05/17 17:34 Urine Color Yellow (Yellow) 11/05/17 18:21 Urine Clarity Clear 11/05/17 18:21 Urine pH 5.5 (5-8) 11/05/17 18:21 Ur Specific Mcbh [place] 1.015 (1.005-1.025) 11/05/17 18:21 Urine Protein 100 mg/dL (Negative) H 11/05/17 18:21 Urine Ketones Negative mg/dL (Negative) 11/05/17 18:21 Urine Blood Trace-intact (Negative) H 11/05/17 18:21 Urine Nitrite Negative (Negative) 11/05/17 18:21 Urine Bilirubin Negative (Negative) 11/05/17 18:21 Urine Urobilinogen 0.2 EU/dL (Up TO 0.2) 11/05/17 18:21 Ur Leukocyte Esterase Negative (Negative) 11/05/17 18:21 Urine RBC Negative (0-2) 11/05/17 18:21 Urine WBC 5-10 HPF (0-5) 11/05/17 18:21 Ur Epithelial Cells Few HPF (Negative) 11/05/17 18:21 Urine Crystals Few amorphous HPF (Negative) 11/05/17 18:21 Urine Bacteria Negative HPF (Negative) 11/05/17 18:21 Urine Casts 3-5 hyaline LPF (Negative) 11/05/17 18:21 Urine Mucus Negative (Negative) 11/05/17 18:21 Ur Culture Indicated? C&s done as ordered 11/05/17 18:21 Urine Glucose Negative mg/dL (Negative) 11/05/17 18:21 Stool Campylobacter PCR See comments 11/06/17 10:15 Stool Salmonella PCR See comments 11/06/17 10:15 Stool Shigella PCR See comments 11/06/17 10:15 Vancomycin Trough 23.8 ug/mL (10.0-20.0) H* 11/10/17 15:13 Shiga Toxin (PCR) See comments 11/06/17 10:15 Patient ABO/Rh O Positive 11/07/17 06:15 Antibody Screen Negative 11/07/17 06:15 Crossmatch See Detail 11/07/17 06:15
[2017-11-12] MEDS: Magnesium Oxide 400 MG TAB PO (19:05)
[2017-11-12] MEDS: LORazepam 0.5 MG TAB PO ×2 (19:05→23:49)
--- NOTE | 2017-11-12 20:14 | PDOC.CMPRO ---
Care Management Progress Note S/O: Ashia was attempting to ambulate with PT when CM entered her room. She reported anticipating her planned [facility]; if medically ready per MD. B[facility]OLO coordinated tentative W/C Van transport for tomorrow; 11/13/17@1100 with [facility]. No change to overall plan. A: 77 year old female admitted to [facility] for Tachycardia, sepsis syndrome, institution acquired pneumonia P: Ashia will return to [facility] for a skilled stay when medically ready and the facility will manage her further service and equipment needs. She will transport via W/C Van provided by [facility].
--- NOTE | 2017-11-12 20:17 | CMPROGNOTE_ITS ---
Care Management Progress Note S/O: Ashai was attempting to ambulate with PT when CM entered her room. She reported anticipating her [facility]; if medically ready per MD. BARTOLO coordinated tentative W/C Van transport for tomorrow; 11/13/17@1100 with [facility]. No change to overall plan. A: 77 year old female admitted to [facility] for Tachycardia, sepsis syndrome, institution acquired pneumonia P: Ashia will return to [facility] for a skilled stay when medically ready and the facility will manage her further service and equipment needs. She will transport via W/C Van provided by [facility].
[2017-11-12 23:25] VITALS: BP 133/63; PULSE 70; RESP 20; TEMP 37.8; O2SAT 94
[2017-11-12 23:30] VITALS: BP 133/63; PULSE 70; RESP 20; TEMP 37.8; O2SAT 94
[2017-11-13] MEDS: oxyCODONE 15 MG TAB PO ×5 (01:19→20:09)
[2017-11-13 07:13] LABS: Abs Immature Grans 0.73 k/cumm (0.0-0.09); HCT 28.5 % (36.0-46.0); HGB 9.1 g/dL (12.0-15.5); Mean Corp. HGB Concentration 31.9 g/dL (32.0-36.0); Mean Corpuscular Volume 100.4 fL (80-95); Mean Platelet Volume 10.1 fL (8.0-11.0); Platelet Count 308 x1000/uL (130-400); RBC 2.84 m/cumm (4.00-5.20); RBC Distribution Width 17.1 % (11.7-14.6); White Blood Cell Count 15.54 k/cumm (4.4-10.8)
[2017-11-13 07:17] VITALS: BP 151/67; PULSE 72; RESP 18; TEMP 36.6; O2SAT 94
[2017-11-13 07:23] LABS: Anion Gap 5.7 mmol/L (3-11); BUN 25 mg/dL (7-18); CO2 31.3 mmol/L (21.0-32.0); CREATININE 0.89 mg/dL (0.55-1.02); Calcium 9.1 mg/dL (8.5-10.1); Chloride 100 mmol/L (98-107); Glucose 97 mg/dL (70-100); Potassium 3.9 mmol/L (3.5-5.1); Sodium 137 mmol/L (136-145)
[2017-11-13 07:31] LABS: Absolute Eosinophil Count 0.16 k/cumm (0.0-0.7); Absolute Lymphocyte Count 1.71 k/cumm (1.2-3.4); Anisocytosis 1+; Atypical Lymphocytes % 1; Diff Comment Manual Differential; Nucleated RBC 1 /100WBC; Polychromasia Present
--- NOTE | 2017-11-13 08:40 | PT.INDS ---
Date of service: 11/13/17 Time of Service: 08:40 PT Notes Inpatient Physical Therapy Discharge Summary Date: 11/13/17 Dates of Service:11/11/17-11/12/17 Precautions: WBAT L LE with hinged knee brace locked at -10 degrees SUBJECTIVE: NT OBJECTIVE: 11/11/17-11/12/17 BED MOBILITY/TRANSFERS: Sit-supine modAx1 Sit-stand CGA with FWW Stand-sit CGA Bed-Chair CGA with FWW Chair-bed CGA with FWW GAIT: ModAx1 with FWW 10 steps BALANCE: Static sitting: normal Dynamic sitting: normal Static standing :poor Dynamic standing: poor ASSESSMENT: Pt was seen for 3 PT visits on SWING program. Pt progressed from gait with FWW modAx1 1 step to modAx1 10 steps. Pt requiring one person assist for safe transfers. Pt is being discharged to [facility] for continued rehab. GOALS 1. Supine-Sit minAx1 2. Sit-Supine minAx1 3. Sit-Stand SBA with FWW, hinged brace 4. Stand-Sit SBA 5. Bed-Chair CGA with FWW, hinged brace 6. Chair-Bed CGA with FWW hinged brace 7. Gait CGA with FWW, hinged knee brace, 30ftx2 WBAT L LE Pt met goals # 5, 6 DISCHARGE RECOMMENDATIONS: [facility] G Codes in the area mobility of walking and moving around: projected status GP [id number]. Discharge status (if discharging) GP [id number] CL Marilee Dawson PT
[2017-11-13] MEDS: Pantoprazole 40 MG VIAL IVP ×2 (08:42→20:09)
[2017-11-13] MEDS: Hydrocortisone SOD SUC. 100 MG VIAL 20 MG IVP (08:43)
[2017-11-13] MEDS: Metoprolol 25 MG TAB PO ×2 (08:44→20:09)
[2017-11-13] MEDS: Furosemide 20 MG TAB PO (08:44)
[2017-11-13] MEDS: Potassium Chloride 20 MEQ TABCR PO ×3 (08:44→20:09)
[2017-11-13] MEDS: Lactobacillus Acidophilus CAP 1 CAP PO ×3 (08:44→20:08)
[2017-11-13] MEDS: Ferrous Sulfate 325 MG TAB PO ×2 (08:44→20:08)
[2017-11-13] MEDS: Sucralfate 1 GM TAB PO ×4 (08:44→21:46)
[2017-11-13] MEDS: Magnesium Oxide 400 MG TAB PO ×3 (08:44→20:09)
--- NOTE | 2017-11-13 08:47 | INDS_ITS ---
Date of service: 11/13/17 Time of Service: 08:40 PT Notes Inpatient Physical Therapy Discharge Summary Date: 11/13/17 Dates of Service:11/11/17-11/12/17 Precautions: WBAT L LE with hinged knee brace locked at -10 degrees SUBJECTIVE: NT OBJECTIVE: 11/11/17-11/12/17 BED MOBILITY/TRANSFERS: Sit-supine modAx1 Sit-stand CGA with FWW Stand-sit CGA Bed-Chair CGA with FWW Chair-bed CGA with FWW GAIT: ModAx1 with FWW 10 steps BALANCE: Static sitting: normal Dynamic sitting: normal Static standing :poor Dynamic standing: poor ASSESSMENT: Pt was seen for 3 PT visits on SWING program. Pt progressed from gait with FWW modAx1 1 step to modAx1 10 steps. Pt requiring one person assist for safe transfers. Pt is being discharged to manager intermediate care facility for continued rehab. GOALS 1. Supine-Sit minAx1 2. Sit-Supine minAx1 3. Sit-Stand SBA with FWW, hinged brace 4. Stand-Sit SBA 5. Bed-Chair CGA with FWW, hinged brace 6. Chair-Bed CGA with FWW hinged brace 7. Gait CGA with FWW, hinged knee brace, 30ftx2 WBAT L LE Pt met goals # 5, 6 DISCHARGE RECOMMENDATIONS: [facility] G Codes in the area mobility of walking and moving around: projected status GP [id number]. Discharge status (if discharging) GP [id number] CL Marilee Dawson PT
[2017-11-13 09:10] VITALS: O2SAT 94
[2017-11-13 10:59] LABS: Magnesium 1.6 mg/dL (1.8-2.4)
--- NOTE | 2017-11-13 12:11 | DI.RAD_ITS ---
SYMPTOMS/DIAGNOSIS: ANTIBIOTICS DISCONTINUED YESTERDAY FOR PNEUMONIA, WBC INCREASED PA AND LATERAL CHEST: There is a spinal pacer wire over the thoracolumbar region and there are posterior and anterior fusions of the mid to lower cervical spine with multiple hardware components in position. The heart is at the upper limits of normal in size. The diaphragm is elevated on the right which appears to be unchanged from 11/05/17. The lungs are clear. No pleural effusion seen. No evidence of acute disease. Left basilar consolidation seen on CT of 11/05/17 is not seen on today' s chest radiograph. The lower lobe infiltrate was also noted on the chest radiograph on that date and is no longer visible today. CONCLUSION: Resolution of previously noted apparent left lower lobe pneumonia.
[2017-11-13 13:54] LABS: Bilirubin Negative (Negative); Blood Small (Negative); Clarity Clear; Glucose Negative (Negative); Ketones Negative (Negative); Leukocyte Esterase Negative (Negative); Nitrite Negative (Negative); Specific Gravity 1.015 (1.005-1.025); Urobilinogen 0.2 EU/dL (Up TO 0.2)
--- NOTE | 2017-11-13 14:07 | PDOC.CMPRO ---
Care Management Progress Note S/O: Ashia was lying in bed when CM met with her. CM communicated discharge considerations with Ashia with her daughter, Sol participating via phone. Per provider, Ashia will not discharge today due to concerns around her WBC rising and requiring additional work up; Ashia and her daughter reported being agreeable to this change. CM updated team and [facility] as well. Ashia will continue to be monitored at this time. No change to overall plan. A: 77 year old female admitted to [facility] for Tachycardia, sepsis syndrome, institution acquired pneumonia P: Ashia will [facility] for [facility] skilled stay when medically ready and the facility will manage her further service and equipment needs. She will transport via W[facility]C Van [facility].
--- NOTE | 2017-11-13 14:10 | CMPROGNOTE_ITS ---
Care Management Progress Note S/O: Ashia was lying in bed when CM met with her. CM communicated discharge considerations with Ashia with her daughter, Sol participating via phone. Per provider, Ashia will not discharge today due to concerns around her WBC rising and requiring additional work up; Ashia and her daughter reported being agreeable to this change. CM updated team and [facility] as well. Ashia will continue to be monitored at this time. No change to overall plan. A: 77 year old female admitted to [facility] for Tachycardia, sepsis syndrome, institution acquired pneumonia P: Ashia [facility] when medically ready and the facility will manage her further service and equipment needs. She will transport via W/C Van [facility].
[2017-11-13 14:11] LABS: Bacteria Rare HPF (Negative); Crystals Negative HPF (Negative); Epithelial Cells Rare HPF (Negative); Mucus Trace (Negative); Other Cells Rare Renal (Negative); RBC 0-2 (0-2)
[2017-11-13 14:12] LABS: C & S Indicated? No; Casts 0-2 Hyaline LPF (Negative)
--- NOTE | 2017-11-13 15:14 | CHAPLAIN ---
Ashia was sitting up in bed having breakfast when I visited. She said wasn't really hungry. She was expecting to bed discharged today, but was told the medical staff wants to keep an eye on her WBC count. Ashia said she will be going to [facility] and has been there before so she is familiar with it and comfortable going there. She is [employer] and attends the small [employer] in [place], which is only open in the summer. Ashia's just a year ago, and she is trying to sell her house, but is unsure of where her next move will be and this. She has considered some housing in [place] and [place]. The uncertainty of this seems to cause her some anxiety.
--- NOTE | 2017-11-13 16:02 | W.PM.PROGNOT ---
Assessment and Plan (1) Left lower lobe pneumonia: Current visit: Yes Status: Acute Her white blood cell count was up today. She was scheduled to be discharged to [facility] rehab today. Her discharge was placed on hold to further evaluate her leukocytosis. She had a follow-up chest x-ray which revealed improvement from previous. It appears that her left lower lobe pneumonia has been completely treated. She is no longer on antibiotics. Continue to monitor. (2) Patellar fracture: Current visit: Yes Status: Acute Left patellar wound reportedly healing well without signs of infection as reported by nursing. She continues with knee immobilizer, weightbearing as tolerated. Continue physical therapy. (3) Diarrhea: Current visit: Yes Status: Acute She continues to have diarrhea which is apparently chronic. She has also received antibiotics recently. Stool studies came back negative. Continue to monitor. (4) Anemia: Current visit: Yes Status: Chronic Her hemoglobin and hematocrit have improved and are stable. Continue to monitor. (5) Leukocytosis: Current visit: Yes Status: Acute Her leukocytosis worsened slightly today. She is currently on IV Solu-Cortef. She had a repeat chest x-ray which revealed improvement from admission. She had a repeat urinalysis which was not suspicious for infection. This is likely related to steroid therapy. She remains afebrile. Continue to monitor for fevers. (6) Discharge planning issues: Current visit: Yes Status: Acute She is a DNR/DNI. She would likely be ready for discharge to the rehab tomorrow. This case was discussed with Dr. Mosley who is in agreement. Subjective Interval history since last seen: 77 year old woman with a past medical history significant for RA on Methotrexate and daily Prednisone, Aortic Stenosis, History of PE s/p IVC filter placement who presented to [facility] emergency department with reported fevers. She had recently been hospitalized at [facility] for repair of a left patella fracture on 11/01/2017. At that time she was also treated for a urinary tract infection. She was transferred to [facility] and rehab for physical therapy from [facility]. She was only at [facility] and rehab very briefly when she was noted to have significant fever with rigors and was transferred to the [facility] emergency department for further evaluation. Since then she has been treated for pneumonia and sepsis syndrome. She was noted to have diarrhea stool studies were negative. The plan was for her to be discharged this morning to [facility] and rehab however overnight she had a temperature of 37.8 with leukocytosis. She went on to have a repeat chest x-ray which was improved from admission. She had a urinalysis that was not suspicious for urinary tract infection. She felt well, she denied any concerns such as cough, shortness of breath, wheezing, chest pain, pressure, palpitations, nausea, vomiting, or pain. She continues to experience loose stools. She would likely be transferred to [facility] rehab tomorrow. Exam Const General: cooperative, comfortable, no acute distress (She is sitting up in the chair.) and well groomed Orientation: alert, awake and oriented x3 HENMT Head: normocephalic and atraumatic Mouth: moist mucous membranes Neck Neck: supple Resp Effort & Inspection: normal respiratory effort (Respirations are even and unlabored.) Auscultation: clear to auscultation bilaterally, no rales, no rhonchi and no wheezes Cardio Rate: regular rate and not tachycardic Rhythm: regular rhythm Heart Sounds: murmur (Loud systolic murmur heard across the precordium.) Pulses: posterior tibial pulses present GI Palpation: soft, no masses and nontender Auscultation: normal bowel sounds Skin Wounds: wounds noted (Dressings to bilateral shins, clean, dry and intact. ) Extrem General: edema (mild edema to LLE. Pedal pulses intact. Left knee in brace and nader wrap. ) Objective Objective Clinical Data: Abnormal lab results 11/13/17 11/13/17 11/13/17 Range/Units 06:40 06:40 10:35 WBC 15.54 H (4.4-10.8) k/cumm RBC 2.84 L (4.00-5.20) m/cumm Hgb 9.1 L (12.0-15.5) g/dL Hct 28.5 L (36.0-46.0) % MCV 100.4 H (80-95) fL MCHC 31.9 L (32.0-36.0) g/dL RDW 17.1 H (11.7-14.6) % Absolute Neutrophils 11.50 H (1.2-6.7) k/cumm Absolute Monocytes 1.40 H (0.11-0.7) k/cumm BUN 25 H (7-18) mg/dL Magnesium 1.6 L (1.8-2.4) mg/dL Urine Protein (Negative) mg/dL Urine Blood (Negative) 11/13/17 Range/Units 13:28 WBC (4.4-10.8) k/cumm RBC (4.00-5.20) m/cumm Hgb (12.0-15.5) g/dL Hct (36.0-46.0) % MCV (80-95) fL MCHC (32.0-36.0) g/dL RDW (11.7-14.6) % Absolute Neutrophils (1.2-6.7) k/cumm Absolute Monocytes (0.11-0.7) k/cumm BUN (7-18) mg/dL Magnesium (1.8-2.4) mg/dL Urine Protein 30 H (Negative) mg/dL Urine Blood Small H (Negative) Vital Signs Temperature 36.6 C 11/13/17 07:17 Temperature Source Tympanic 11/13/17 07:17 Pulse 72 11/13/17 07:17 Pulse Rhythm Regular 11/13/17 08:30 Pulse 75 11/09/17 16:00 Respiratory Rate 18 11/13/17 07:17 Respiratory Effort 11/13/17 08:30 Respiratory Depth Normal 11/13/17 08:30 Respiratory Pattern Normal 11/13/17 08:30 Blood Pressure 151/67 H 11/13/17 07:17 Blood Pressure Mean 95 11/09/17 13:47 Blood Pressure Position Left Lateral 11/09/17 09:00 Pulse Oximetry 94 L 11/13/17 09:10 Oxygen Delivery Method Room Air 11/13/17 09:10 Oxygen Flow Rate 0 11/13/17 09:10 Fraction of Inspired Oxygen (FIO2) 30 11/05/17 18:20 Pain Level 7 11/13/17 11:39 Comment 11/07/17 11:12 Intake & Output 11/12/17 11/13/17 11/13/17 23:59 11:59 23:59 Intake Total 938.5 / 938.5 275 / 275 Output Total 1200 / 1200 400 / 400 400 / 400 Balance -261.5 / -261.5 -125 / -125 -400 / -400 Weight 55.1 kg Intake: IV 28.5 / 28.5 Oral 910 / 910 275 / 275 Output: Urine 1200 / 1200 400 / 400 400 / 400 Other: Urine Color Yellow Pale Pale Yellow Yellow Urine Appearance Clear Clear Clear Urine Odor Normal Normal Comment HNV-enc to drink well. mixed with stool st cath for clean UA. Also was incontinent of stool Stool Size Small Small Stool Characteristics Liquid Soft Brown Liquid Black Brown Black Voiding Methods Bedpan Bedside Commode Indwelling Catheter Diaper Incontinent Laboratory Results WBC 15.54 k/cumm (4.4-10.8) H 11/13/17 06:40 RBC 2.84 m/cumm (4.00-5.20) L 11/13/17 06:40 Hgb 9.1 g/dL (12.0-15.5) L 11/13/17 06:40 Hct 28.5 % (36.0-46.0) L 11/13/17 06:40 MCV 100.4 fL (80-95) H 11/13/17 06:40 MCH 32.0 pg (27.0-33.0) 11/13/17 06:40 MCHC 31.9 g/dL (32.0-36.0) L 11/13/17 06:40 RDW 17.1 % (11.7-14.6) H 11/13/17 06:40 Plt Count 308 x1000/uL (130-400) 11/13/17 06:40 MPV 10.1 fL (8.0-11.0) 11/13/17 06:40 Immature Gran % See Differential 11/13/17 06:40 Neutrophils % 74.0 11/13/17 06:40 Lymphocytes % 10.0 11/13/17 06:40 Monocytes % 9.0 11/13/17 06:40 Eosinophils % 1.0 11/13/17 06:40 Basophils % 0.0 11/13/17 06:40 Absolute Neutrophils 11.50 k/cumm (1.2-6.7) H 11/13/17 06:40 Band Neutrophils 1.0 % 11/12/17 06:45 Absolute Lymphocytes 1.71 k/cumm (1.2-3.4) 11/13/17 06:40 Absolute Monocytes 1.40 k/cumm (0.11-0.7) H 11/13/17 06:40 Absolute Eosinophils 0.16 k/cumm (0.0-0.7) 11/13/17 06:40 Absolute Basophils 0.00 k/cumm (0.0-0.2) 11/13/17 06:40 Metamyelocytes 2.0 % 11/13/17 06:40 Myelocytes 3.0 % 11/13/17 06:40 Nucleated RBCs 1 /100WBC 11/13/17 06:40 Differential Comment Manual differential 11/13/17 06:40 Atypical Lymphocytes 1 11/13/17 06:40 RBC Morphology See below 11/13/17 06:40 Polychromasia Present 11/13/17 06:40 Hypochromasia 1+ 11/12/17 06:45 Basophilic Stippling Present 11/12/17 06:45 Anisocytosis 1+ 11/13/17 06:40 Microcytosis 1+ 11/12/17 06:45 Macrocytosis 1+ 11/12/17 06:45 VBG pH 7.44 (7.32-7.43) H 11/05/17 20:55 VBG pCO2 40 mm/Hg (34-47) 11/05/17 20:55 VBG pO2 138 mm/Hg (28-44) H 11/05/17 20:55 VBG HCO3 27 mmol/L (22-28) 11/05/17 20:55 VBG Total CO2 Not Applicable 11/05/17 20:55 VBG O2 Saturation > 99 % (70-80) H 11/05/17 20:55 VBG Base Excess 2.9 mmol/L (-3-3) 11/05/17 20:55 Sodium 137 mmol/L (136-145) 11/13/17 06:40 Potassium 3.9 mmol/L (3.5-5.1) 11/13/17 06:40 Chloride 100 mmol/L (98-107) 11/13/17 06:40 Carbon Dioxide 31.3 mmol/L (21.0-32.0) 11/13/17 06:40 Anion Gap 5.7 mmol/L (3-11) 11/13/17 06:40 BUN 25 mg/dL (7-18) H 11/13/17 06:40 Creatinine 0.89 mg/dL (0.55-1.02) 11/13/17 06:40 Estimated GFR/1.73 m2 >= 60.00 (mL/min/1.73m2) 11/13/17 06:40 Glucose 97 mg/dL (70-100) 11/13/17 06:40 Lactate 1.2 mmol/L (0.6-1.4) 11/06/17 09:00 Calcium 9.1 mg/dL (8.5-10.1) 11/13/17 06:40 Magnesium 1.6 mg/dL (1.8-2.4) L 11/13/17 10:35 Iron 9 ug/dL (50-175) L 11/06/17 09:00 TIBC 176 ug/dL (250-450) L 11/06/17 09:00 Transferrin % Sat 5 % (15-50) L 11/06/17 09:00 Ferritin 146 ng/mL (8-388) 11/06/17 09:00 Total Bilirubin 0.3 mg/dL (0.2-1.0) 11/12/17 06:45 Conjugated Bilirubin 0.07 mg/dL (0.00-0.20) 11/10/17 06:17 AST 31 U/L (15-37) 11/12/17 06:45 ALT 54 U/L (12-78) 11/12/17 06:45 Alkaline Phosphatase 80 U/L (46-116) 11/12/17 06:45 Troponin I < 0.02 ng/mL (0.00-0.06) 11/05/17 17:33 Total Protein 5.3 g/dL (6.4-8.2) L 11/12/17 06:45 Albumin 2.2 g/dL (3.4-5.0) L 11/12/17 06:45 Vitamin B12 843 pg/mL (193-986) 11/06/17 09:00 Folate > 20.0 ng/mL (8.6-20.0) H 11/06/17 09:00 TSH Cancelled 11/05/17 17:34 Urine Color Yellow (Yellow) 11/13/17 13:28 Urine Clarity Clear 11/13/17 13:28 Urine pH 7.0 (5-8) 11/13/17 13:28 Ur Specific [place] 1.015 (1.005-1.025) 11/13/17 13:28 Urine Protein 30 mg/dL (Negative) H 11/13/17 13:28 Urine Ketones Negative mg/dL (Negative) 11/13/17 13:28 Urine Blood Small (Negative) H 11/13/17 13:28 Urine Nitrite Negative (Negative) 11/13/17 13:28 Urine Bilirubin Negative (Negative) 11/13/17 13:28 Urine Urobilinogen 0.2 EU/dL (Up TO 0.2) 11/13/17 13:28 Ur Leukocyte Esterase Negative (Negative) 11/13/17 13:28 Urine RBC 0-2 (0-2) 11/13/17 13:28 Urine WBC 3-5 HPF (0-5) 11/13/17 13:28 Ur Epithelial Cells Rare HPF (Negative) 11/13/17 13:28 Urine Crystals Negative HPF (Negative) 11/13/17 13:28 Urine Bacteria Rare HPF (Negative) 11/13/17 13:28 Urine Casts 0-2 hyaline LPF (Negative) 11/13/17 13:28 Urine Mucus Trace (Negative) 11/13/17 13:28 Urine Other Rare renal (Negative) 11/13/17 13:28 Ur Culture Indicated? No 11/13/17 13:28 Urine Glucose Negative mg/dL (Negative) 11/13/17 13:28 Stool Campylobacter PCR See comments 11/06/17 10:15 Stool Salmonella PCR See comments 11/06/17 10:15 Stool Shigella PCR See comments 11/06/17 10:15 Vancomycin Trough 23.8 ug/mL (10.0-20.0) H* 11/10/17 15:13 Shiga Toxin (PCR) See comments 11/06/17 10:15 Patient ABO/Rh O Positive 11/07/17 06:15 Antibody Screen Negative 11/07/17 06:15 Crossmatch See Detail 11/07/17 06:15
[2017-11-13 16:12] VITALS: BP 185/73; PULSE 86; RESP 19; TEMP 37.2; O2SAT 97
[2017-11-13] MEDS: Acetaminophen 325 MG TAB PO (17:51)
[2017-11-13] MEDS: LORazepam 0.5 MG TAB PO (17:52)
[2017-11-13] MEDS: Normal Saline Flush 10 ML SYR IVP (20:09)
[2017-11-14] MEDS: oxyCODONE 15 MG TAB PO ×3 (00:53→11:47)
[2017-11-14 01:22] VITALS: BP 176/74; PULSE 73; RESP 19; TEMP 37.5; O2SAT 93
[2017-11-14] MEDS: LORazepam 0.5 MG TAB PO (01:24)
[2017-11-14 07:20] LABS: HCT 28.8 % (36.0-46.0); Mean Corp. HGB Concentration 31.3 g/dL (32.0-36.0); Mean Corpuscular Hemoglobin 31.9 pg (27.0-33.0); Mean Corpuscular Volume 102.1 fL (80-95); Mean Platelet Volume 9.9 fL (8.0-11.0); Platelet Count 357 x1000/uL (130-400); RBC 2.82 m/cumm (4.00-5.20); RBC Distribution Width 17.1 % (11.7-14.6); White Blood Cell Count 15.03 k/cumm (4.4-10.8)
[2017-11-14] MEDS: Pantoprazole 40 MG VIAL IVP (08:28)
[2017-11-14] MEDS: Normal Saline Flush 10 ML SYR IVP (08:28)
[2017-11-14] MEDS: predniSONE 5 MG TAB PO (08:28)
[2017-11-14] MEDS: Sucralfate 1 GM TAB PO ×2 (08:29→11:47)
[2017-11-14] MEDS: Potassium Chloride 20 MEQ TABCR PO (08:29)
[2017-11-14] MEDS: Furosemide 20 MG TAB PO (08:29)
[2017-11-14] MEDS: Metoprolol 25 MG TAB PO (08:29)
[2017-11-14] MEDS: Ferrous Sulfate 325 MG TAB PO (08:30)
[2017-11-14] MEDS: Magnesium Oxide 400 MG TAB PO (08:30)
[2017-11-14] MEDS: Acetaminophen 325 MG TAB PO (08:30)
[2017-11-14] MEDS: Lactobacillus Acidophilus CAP 1 CAP PO (08:31)
[2017-11-14 08:46] VITALS: BP 169/84; PULSE 78; RESP 16; TEMP 37.2; O2SAT 92
--- NOTE | 2017-11-14 09:30 | PDOC.CMDIS ---
- If Service Date Differs Date of service: 11/14/17 Time of Service: 09:30 LACE Index Scoring Tool - Questions: Length of Stay (in days): 7 - 13 Acuity (Admit via E.D.?): Yes E.D. Visits: 1 - Answers: Total Score: 9 Risk of Readmission: Low Risk Care Management Discharge Reason for Hospitalization: Tachycardia, aepsis syndrome, institution aquired pnemonia Discharge Plan: Ashia will discharge to [facility] when medically ready per MDAlexa Ang's follow up care will be arranged by &. Patient will discharge via wheel chair van. Patient/Family Education Needs: Discharge education, any limitations, and follow up plan of care. Ask Me Three discussion. Services Needed at Discharge: Jail Facility ([facility].)
--- NOTE | 2017-11-14 09:34 | CMDISCH_ITS ---
- If Service Date Differs Date of service: 11/14/17 Time of Service: 09:30 LACE Index Scoring Tool - Questions: Length of Stay (in days): 7 - 13 Acuity (Admit via E.D.?): Yes E.D. Visits: 1 - Answers: Total Score: 9 Risk of Readmission: Low Risk Care Management Discharge Reason for Hospitalization: Tachycardia, aepsis syndrome, institution aquired pnemonia Discharge Plan: Ashia will discharge to [facility] when medically ready per MDAlexa Ang's follow up care will be arranged by &. Patient will discharge via wheel chair van. Patient/Family Education Needs: Discharge education, any limitations, and follow up plan of care. Ask Me Three discussion. Services Needed at Discharge: [facility] Facility ([facility]
--- NOTE | 2017-11-14 12:55 | W.PM.DS.N ---
Date of service: 11/14/17 Time of Service: 12:55 DS: Diagnosis Discharge Diagnosis (1) Left lower lobe pneumonia: Status: Acute (2) Patellar fracture: Status: Acute (3) Diarrhea: Status: Acute (4) Anemia: Status: Chronic (5) Leukocytosis: Status: Acute (6) Discharge planning issues: Status: Acute (7) Aortic stenosis: Status: Chronic (8) Chronic pain: Status: Chronic (9) Dyslipidemia: Status: Acute (10) Hypertension: Status: Chronic (11) Rheumatoid arthritis: Status: Chronic (12) Sepsis syndrome: Status: Resolved Discharge Plan Disposition Condition: Stable Discharge Details Reason For Visit: TACHYCARDIA,SEPSIS SYNDROME,INSTITUTION ACQUIRED P Admit Date/Time: 11/05/17 21:31 Admit Provider: Anthony Caballero Attending Provider: Anthony Caballero Primary Care Provider: Kinga Arceo Hospital Course Hospital Course: 77 year old woman with a past medical history significant for RA on Methotrexate and daily Prednisone, Aortic Stenosis quantified as 'severe' by review of outside records, History of PE s/p IVC filter placement presents to [facility] emergency department with reported fevers. Mrs. Montero was recently hospitalized at [facility] for repair of a left Patella fracture on 11/01/2017. She also underwent treatment for a UTI (Proteus Mirabilis, sensitive to CTx & FQ's), and underwent clearance for surgical intervention due to her history of Aortic Stenosis (Patient's Color Television Console Monitor is Dr. Malave). She spent a total of 4 days in the hospital. Following her discharge from [facility] she was discharged to a Alf Facility. However, en-route she was noted to have a significant elevation in temperature, and was brought to the emergency department for further evaluation. Work-up in the ED included evidence of Tachycardia, elevated Lactic Acid, Leukocytosis, and a LLL Infiltrate by CT. She was diagnosed with Sepsis on the basis of HCAP, and admitted to the hospital. She was started on IV antibiotics including Vancomycin and Cefepime, to include coverage for health care associated pneumonia as she was recently hospitalized. She completed a full 7 day course of antibiotics. She had a follow up x-ray which demonstrated resolution of the previously noted LLL pneumonia. She was initially noted to be anemic, at one point her Hgb was as low as 7.0 and she received one unit of packed red blood cells on 11/08/17 with good response. Her H/H have remained stable throughout the rest of her hospitalization. She is chronically on steroids and had been taking NSAIDS, she was started on carafate for GI protection, she is already on a PPI. She has also experienced diarrhea, which appears to be chronic, possibly worsened in the setting of antibiotics. Stool cultures were sent and were found to be negative for c-diff and bacterial pathogens. She was scheduled for discharge on 11/13/17, however, her leukocytosis was slightly higher than the previous day. Given that she was recently treated for UTI and PNA, her discharge was placed on hold and she was assessed further for infection. She had a chest x-ray that revealed resolution of the previous pneumonia. She had a UA that was not suspicious for infection. She remains afebrile. Her leukocytosis is likely on the basis of chronic steroid use. This was discussed with the receiving provider at [facility] who plans to monitor her labs. Of note, Ms Montero's amlodipine, amitriptyline, allopurinol and gabapentin have been on hold throughout her stay. Her blood pressures are tending up. Recommend restarting amlodipine and amitriptyline. Consider restarting allopurinol and gabapentin. She has worked with PT, her left knee is wrapped in WALDEMAR and with brace in place. PT recommends further PT for rehab prior to returning home. She has several wounds over her body for which she has received a wound consult. She will require ongoing wound care. She has a significant aortic murmur related to her . At the time of discharge, she feels like herself. She is looking forward to rehab at [facility]. She plans to get home eventually. She will need follow up labs to monitor her leukocytosis and anemia. She will need to follow up with Ortho at [facility]. [facility] is [facility] prior to returning home. Home Meds and New Rx's Prescriptions: New acetaminophen [Tylenol] 325 mg Tablet 325 - 650 mg PO Q4H PRN PRNQty: 0 RF: 0 sucralfate 1 gram Tablet 1 g PO AC & HS Qty: 0 RF: 0 nystatin 500,000 unit Tablet 500,000 units PO TID Qty: 0 RF: 0 oxycodone 15 mg Tablet 15 mg PO Q4H PRN PRNQty: 20 RF: 0 potassium chloride [Klor-Con M20] 20 mEq Tablet,Er Particles/Crystals 20 meq PO TID Qty: 0 RF: 0 magnesium oxide 400 mg (241.3 mg magnesium) Tablet 400 mg PO BID Qty: 0 RF: 0 lorazepam 0.5 mg Tablet 0.5 mg PO TID PRN PRNQty: 0 RF: 0 ferrous sulfate 325 mg (65 mg iron) Tablet 325 mg PO BID Qty: 0 RF: 0 acidophilus-pectin, citrus 25 million cell -100 mg Tablet 1 cap PO TID Qty: 0 RF: 0 Continue atorvastatin [Lipitor] 10 MG tablet 10 mg PO DAILY RF: 0 metoprolol succinate 50 MG tablet extended release 24 hr 50 mg PO DAILY RF: 0 aspirin [Aspir-81] 81 MG tablet,delayed release (DR/EC) 81 mg PO DAILY RF: 0 amitriptyline 25 MG tablet 25 mg PO HS RF: 0 methotrexate sodium 2.5 MG tablet 1 tab PO .QTUES RF: 0 folic acid 1 MG tablet 1 mg PO DAILY RF: 0 multivitamin 1 EACH capsule 1 tab PO DAILY RF: 0 cholecalciferol (vitamin D3) [Vitamin D3] 400 UNIT tablet 400 unit PO DAILY RF: 0 amlodipine 5 mg Tablet 1 tab PO DAILY RF: 0 calcium carbonate-vitamin D3 [Calcium 600 with Vitamin D3] 600 mg(1,500mg) -200 unit Tablet 1 tab PO BID RF: 0 prednisone 2.5 mg Tablet 2.5 mg PO DAILY RF: 0 docusate sodium [Colace] 100 mg Capsule 2 tab PO BID PRNRF: 0 furosemide 20 mg Tablet 20 mg PO DAILY RF: 0 Discontinued gabapentin [Neurontin] 400 MG capsule 800 mg PO TID RF: 0 allopurinol 300 MG tablet 300 mg PO BID RF: 0 oxycodone 30 MG tablet 0.5 tab PO Q6H PRN PRNRF: 0 Discharge Instructions Instructions: Sepsis (GEN), Pneumonia (DC) Stand Alone Forms: Nursing Discharge Form Equipment/Supplies: Brace Activity:: Activity as Tolerated Shower/Bathe:: Cover Activity:: Activity as Tolerated Equipment/Supplies:: No Equipment Needed Diet:: Low Sodium Exam Narrative Exam Narrative: On exam she is sitting up in the chair, she appears comfortable with her LLE elevated on a stool with a pillow. She is not pale, she appears well nourished. She is awake, alert and oriented. She engages in conversation. Her lungs sound clear throughout, her heart sounds regular, she has a loud systolic murmur heard across her precordium. Abdomen is soft and nondisteneded, nontender on palpation. She has a brace on her LLE, her knee is wrapped in an WALDEMAR, she has mild edema to the LLE. Pedal pulses are plapable. She has thin skin with ecchymosis scattered over her extremities. She has multiple scattered wounds with dressings in place. DS: Data Vitals/I&O Vitals and I&O: Vital Signs Temperature 37.2 C 11/14/17 08:46 Temperature Source Tympanic 11/14/17 08:46 Pulse 78 11/14/17 08:46 Pulse Rhythm Regular 11/14/17 08:46 Pulse 75 11/09/17 16:00 Respiratory Rate 16 11/14/17 08:46 Respiratory Effort Non-Labored 11/14/17 08:46 Respiratory Depth Normal 11/14/17 08:46 Respiratory Pattern Normal 11/14/17 08:46 Blood Pressure 169/84 H 11/14/17 08:46 Blood Pressure Mean 95 11/09/17 13:47 Blood Pressure Position Left Lateral 11/09/17 09:00 Pulse Oximetry 92 L 11/14/17 08:46 Oxygen Delivery Method Room Air 11/14/17 08:46 Oxygen Flow Rate 0 11/14/17 08:46 Fraction of Inspired Oxygen (FIO2) 30 11/05/17 18:20 Pain Level 8 11/14/17 11:47 Comment 11/14/17 08:46 Intake & Output 11/13/17 11/14/17 11/14/17 23:59 11:59 23:59 Intake Total 250 / 250 480 / 480 Output Total 600 / 600 Balance -350 / -350 480 / 480 Weight 56.1 kg Intake: IV 30 / 30 Oral 240 / 240 450 / 450 Output: Urine 600 / 600 Other: Urine Color Yellow Yellow Urine Appearance Clear Clear Urine Odor Normal Normal Comment st cath for clean UA. Also was incontinent of stool Inc x 1 large amount Stool Size Small Small Stool Characteristics Soft Soft Brown Brown Voiding Methods Bedside Commode Diaper Incontinent Completed studies during hospitalization [Text1]: 11/13/17 PA AND LATERAL CHEST: There is a spinal pacer wire over the thoracolumbar region and there are posterior and anterior fusions of the mid to lower cervical spine with multiple hardware components in position. The heart is at the upper limits of normal in size. The diaphragm is elevated on the right which appears to be unchanged from 11/05/17. The lungs are clear. No pleural effusion seen. No evidence of acute disease. Left basilar consolidation seen on CT of 11/05/17 is not seen on today's chest radiograph. The lower lobe infiltrate was also noted on the chest radiograph on that date and is no longer visible today. CONCLUSION: Resolution of previously noted apparent left lower lobe pneumonia. 11/06/17 PORTABLE AP CHEST: No priors. There is a poor inspiration. The patient is rotated. Heart size and pulmonary vasculature appear stable. Note is made of a nerve stimulator. Post surgical changes are seen in the lumbar spine at the bottom of the film. Note is also made of an IVC filter overlying the L 2 and L 3 vertebral bodies. The right lung appears clear. The left lung base is not well visualized and a left basilar infiltrate and/or effusion cannot be excluded. Post surgical changes are also noted in the cervical spine. Marked degenerative changes are seen in the shoulders, right greater than left. IMPRESSION: Question of a left basilar infiltrate and/or effusion. PE CHEST CT: CT angiography was performed with multi slice acquisition and multi planar and 3D reconstruction. CT scan of the chest was performed according to the pulmonary embolus protocol. There is no evidence of a pulmonary embolus. There is atherosclerosis of the thoracic aorta but no aneurysmal dilatation or dissection. Heart size is within normal limits. No pericardial effusion is seen. No findings to suggest right ventricular dysfunction are present. Mildly enlarged lymph nodes are seen in the mediastinum but no significant adenopathy is appreciated. No pleural effusion or pneumothorax is identified. There is an infiltrate seen in the left lower lobe suspicious for pneumonia. The tracheobronchial tree is unremarkable. Upper abdominal images show cholelithiasis. Renal cysts are present. Post surgical changes are seen in the lower cervical spine. The patient has a nerve stimulator, the tip is at approximately T 7. Note is made of an inferior vena cava filter. IMPRESSION: 1. No evidence of a pulmonary embolus, thoracic aortic dissection or aneurysm. 2. Left lower lobe infiltrate. This may represent atelectasis or pneumonia. Pending studies at discharge: WBC 15.03 k/cumm (4.4-10.8) H 11/14/17 07:02 RBC 2.82 m/cumm (4.00-5.20) L 11/14/17 07:02 Hgb 9.0 g/dL (12.0-15.5) L 11/14/17 07:02 Hct 28.8 % (36.0-46.0) L 11/14/17 07:02 MCV 102.1 fL (80-95) H 11/14/17 07:02 MCH 31.9 pg (27.0-33.0) 11/14/17 07:02 MCHC 31.3 g/dL (32.0-36.0) L 11/14/17 07:02 RDW 17.1 % (11.7-14.6) H 11/14/17 07:02 Plt Count 357 x1000/uL (130-400) 11/14/17 07:02 MPV 9.9 fL (8.0-11.0) 11/14/17 07:02 Immature Gran % See Differential 11/13/17 06:40 Neutrophils % 74.0 11/13/17 06:40 Lymphocytes % 10.0 11/13/17 06:40 Monocytes % 9.0 11/13/17 06:40 Eosinophils % 1.0 11/13/17 06:40 Basophils % 0.0 11/13/17 06:40 Absolute Neutrophils 11.50 k/cumm (1.2-6.7) H 11/13/17 06:40 Band Neutrophils 1.0 % 11/12/17 06:45 Absolute Lymphocytes 1.71 k/cumm (1.2-3.4) 11/13/17 06:40 Absolute Monocytes 1.40 k/cumm (0.11-0.7) H 11/13/17 06:40 Absolute Eosinophils 0.16 k/cumm (0.0-0.7) 11/13/17 06:40 Absolute Basophils 0.00 k/cumm (0.0-0.2) 11/13/17 06:40 Metamyelocytes 2.0 % 11/13/17 06:40 Myelocytes 3.0 % 11/13/17 06:40 Nucleated RBCs 1 /100WBC 11/13/17 06:40 Differential Comment Manual differential 11/13/17 06:40 Atypical Lymphocytes 1 11/13/17 06:40 RBC Morphology See below 11/13/17 06:40 Polychromasia Present 11/13/17 06:40 Hypochromasia 1+ 11/12/17 06:45 Basophilic Stippling Present 11/12/17 06:45 Anisocytosis 1+ 11/13/17 06:40 Microcytosis 1+ 11/12/17 06:45 Macrocytosis 1+ 11/12/17 06:45 VBG pH 7.44 (7.32-7.43) H 11/05/17 20:55 VBG pCO2 40 mm/Hg (34-47) 11/05/17 20:55 VBG pO2 138 mm/Hg (28-44) H 11/05/17 20:55 VBG HCO3 27 mmol/L (22-28) 11/05/17 20:55 VBG Total CO2 Not Applicable 11/05/17 20:55 VBG O2 Saturation > 99 % (70-80) H 11/05/17 20:55 VBG Base Excess 2.9 mmol/L (-3-3) 11/05/17 20:55 Sodium 137 mmol/L (136-145) 11/13/17 06:40 Potassium 3.9 mmol/L (3.5-5.1) 11/13/17 06:40 Chloride 100 mmol/L (98-107) 11/13/17 06:40 Carbon Dioxide 31.3 mmol/L (21.0-32.0) 11/13/17 06:40 Anion Gap 5.7 mmol/L (3-11) 11/13/17 06:40 BUN 25 mg/dL (7-18) H 11/13/17 06:40 Creatinine 0.89 mg/dL (0.55-1.02) 11/13/17 06:40 Estimated GFR/1.73 m2 >= 60.00 (mL/min/1.73m2) 11/13/17 06:40 Glucose 97 mg/dL (70-100) 11/13/17 06:40 Lactate 1.2 mmol/L (0.6-1.4) 11/06/17 09:00 Calcium 9.1 mg/dL (8.5-10.1) 11/13/17 06:40 Magnesium 2.0 mg/dL (1.8-2.4) 11/14/17 07:02 Iron 9 ug/dL (50-175) L 11/06/17 09:00 TIBC 176 ug/dL (250-450) L 11/06/17 09:00 Transferrin % Sat 5 % (15-50) L 11/06/17 09:00 Ferritin 146 ng/mL (8-388) 11/06/17 09:00 Total Bilirubin 0.3 mg/dL (0.2-1.0) 11/12/17 06:45 Conjugated Bilirubin 0.07 mg/dL (0.00-0.20) 11/10/17 06:17 AST 31 U/L (15-37) 11/12/17 06:45 ALT 54 U/L (12-78) 11/12/17 06:45 Alkaline Phosphatase 80 U/L (46-116) 11/12/17 06:45 Troponin I < 0.02 ng/mL (0.00-0.06) 11/05/17 17:33 Total Protein 5.3 g/dL (6.4-8.2) L 11/12/17 06:45 Albumin 2.2 g/dL (3.4-5.0) L 11/12/17 06:45 Vitamin B12 843 pg/mL (193-986) 11/06/17 09:00 Folate > 20.0 ng/mL (8.6-20.0) H 11/06/17 09:00 TSH Cancelled 11/05/17 17:34 Urine Color Yellow (Yellow) 11/13/17 13:28 Urine Clarity Clear 11/13/17 13:28 Urine pH 7.0 (5-8) 11/13/17 13:28 Ur Specific [place] 1.015 (1.005-1.025) 11/13/17 13:28 Urine Protein 30 mg/dL (Negative) H 11/13/17 13:28 Urine Ketones Negative mg/dL (Negative) 11/13/17 13:28 Urine Blood Small (Negative) H 11/13/17 13:28 Urine Nitrite Negative (Negative) 11/13/17 13:28 Urine Bilirubin Negative (Negative) 11/13/17 13:28 Urine Urobilinogen 0.2 EU/dL (Up TO 0.2) 11/13/17 13:28 Ur Leukocyte Esterase Negative (Negative) 11/13/17 13:28 Urine RBC 0-2 (0-2) 11/13/17 13:28 Urine WBC 3-5 HPF (0-5) 11/13/17 13:28 Ur Epithelial Cells Rare HPF (Negative) 11/13/17 13:28 Urine Crystals Negative HPF (Negative) 11/13/17 13:28 Urine Bacteria Rare HPF (Negative) 11/13/17 13:28 Urine Casts 0-2 hyaline LPF (Negative) 11/13/17 13:28 Urine Mucus Trace (Negative) 11/13/17 13:28 Urine Other Rare renal (Negative) 11/13/17 13:28 Ur Culture Indicated? No 11/13/17 13:28 Urine Glucose Negative mg/dL (Negative) 11/13/17 13:28 Stool Campylobacter PCR See comments 11/06/17 10:15 Stool Salmonella PCR See comments 11/06/17 10:15 Stool Shigella PCR See comments 11/06/17 10:15 Vancomycin Trough 23.8 ug/mL (10.0-20.0) H* 11/10/17 15:13 Shiga Toxin (PCR) See comments 11/06/17 10:15 Patient ABO/Rh O Positive 11/07/17 06:15 Antibody Screen Negative 11/07/17 06:15 Crossmatch See Detail 11/07/17 06:15 Labs on day of discharge: Labs from last 24 hours 11/14/17 11/14/17 11/13/17 07:02 07:02 13:28 WBC 15.03 H RBC 2.82 L Hgb 9.0 L Hct 28.8 L MCV 102.1 H MCH 31.9 MCHC 31.3 L RDW 17.1 H Plt Count 357 MPV 9.9 Magnesium 2.0 Urine Color Yellow Urine Clarity Clear Urine pH 7.0 Ur Specific [place] 1.015 Urine Protein 30 H Urine Ketones Negative Urine Blood Small H Urine Nitrite Negative Urine Bilirubin Negative Urine Urobilinogen 0.2 Ur Leukocyte Esterase Negative Urine RBC 0-2 Urine WBC 3-5 Ur Epithelial Cells Rare Urine Crystals Negative Urine Bacteria Rare Urine Casts 0-2 hyaline Urine Mucus Trace Urine Other Rare renal Ur Culture Indicated? No Urine Glucose Negative
--- NOTE | 2017-11-14 14:36 | NUR.NOTE ---
Nursing Note: Patient transferred to [facility] @ 1420 via wheelchair van. Report given to KETAN Amato @ [facility] @ [phone]
== END 2017-11-14 14:27 | disposition skilled nursing facility (03) ==
LOC: ER 22:03 → ICU 11-07 04:02 → MS 12-03 13:30
PROVIDERS: Family Medicine; Internal Medicine; Nurse Practitioner; Nurse Practitioner Acute Care; Admitting Provider Family Medicine; Emergency Provider Student in an Organized Health Care Education/Training Program; PCP Student in an Organized Health Care Education/Training Program; Visit Provider Internal Medicine
DX: J18.1 Lobar pneumonia, unspecified organism (principal); A41.9 Sepsis, unspecified organism; K92.1 Melena; Y95 Nosocomial condition; R19.7 Diarrhea, unspecified; D64.9 Anemia, unspecified; I35.0 Nonrheumatic aortic (valve) stenosis; M06.9 Rheumatoid arthritis, unspecified; Z79.52 Long term (current) use of systemic steroids; Z79.899 Other long term (current) drug therapy; Z86.718 Personal history of other venous thrombosis and embolism; I10 Essential (primary) hypertension; E78.5 Hyperlipidemia, unspecified; G89.29 Other chronic pain; S82.002D Unspecified fracture of left patella, subsequent encounter for closed fracture with routine healing; X58.XXXD Exposure to other specified factors, subsequent encounter; Z66 Do not resuscitate
CPT/HCPCS: 36415; 36430; 36569; 36592; 51702; 71275; 80048; 80053; 80076; 82805; 85027; 86850; 86900; 86901; 86920; 87040; 87505; 93005; 96361; 96365; 96366; 97110; 97163; 97167; 97530; 99223; 99232; 99233; 99239; 99285; 71045; 71046; 80202; 81003; 81015; 82272; 82607; 82728; 82746; 83540; 83550; 83605; 83630; 83735; 84443; 84484; 85014; 85018; 85025; 87070; 87086; 87205; 87324; 93010; J1644; J1720; J1941; J2543; J3475; J3480; J3490; J7512; J8610; P9016

== ENCOUNTER 2017-12-11 12:34 | Outpatient (REF) | payer MEDICARE, BC, SELFPAY ==
[2017-12-11 14:24] LABS: Anion Gap 4.6 mmol/L (3-11); BUN 18 mg/dL (7-18); CO2 35.4 mmol/L (21.0-32.0); CREATININE 0.87 mg/dL (0.55-1.02); Calcium 9.2 mg/dL (8.5-10.1); Chloride 98 mmol/L (98-107); Glucose 118 mg/dL (70-100); Potassium 4.6 mmol/L (3.5-5.1); Sodium 138 mmol/L (136-145)
[2017-12-11 14:29] LABS: Abs Immature Grans 0.08 k/cumm (0.0-0.09); Absolute Basophil Count 0.02 k/cumm (0.0-0.2); Absolute Eosinophil Count 0.25 k/cumm (0.0-0.7); Absolute Lymphocyte Count 1.01 k/cumm (1.2-3.4); Absolute Monocyte Count 1.01 k/cumm (0.11-0.7); Basophils % 0.2; Eosinophils % 2.8; HCT 31.7 % (36.0-46.0); HGB 9.3 g/dL (12.0-15.5); Immature Grans % 0.9; Lymphocytes % 11.1; Mean Corp. HGB Concentration 29.3 g/dL (32.0-36.0); Mean Corpuscular Hemoglobin 29.6 pg (27.0-33.0); Mean Platelet Volume 10.4 fL (8.0-11.0); Monocytes % 11.1; Neutrophils % 73.9; Platelet Count 231 x1000/uL (130-400); RBC 3.14 m/cumm (4.00-5.20); RBC Distribution Width 16.2 % (11.7-14.6); White Blood Cell Count 9.07 k/cumm (4.4-10.8)
== END 2017-12-11 12:54 ==
LOC: LBO 12:34
PROVIDERS: PCP Student in an Organized Health Care Education/Training Program; Visit Provider Family Medicine
DX: D64.9 Anemia, unspecified (principal); S82.035D Nondisplaced transverse fracture of left patella, subsequent encounter for closed fracture with routine healing
CPT/HCPCS: 80048; 85025

== ENCOUNTER 2017-12-11 14:13 | Outpatient (REF) | payer SELFPAY ==
--- NOTE | 2017-12-11 14:20 | DI.RAD_ITS ---
SYMPTOMS/DIAGNOSIS: HYPOXIA CHEST: Frontal and lateral views. Comparison 11/13/17. There is poor inspiration. The heart size appears stable. There is unchanged elevation of the right hemidiaphragm. No focal infiltrates, effusions or pneumothoraces are identified. Note is made of a nerve stimulating device in stable position. There is an inferior vena cava filter in place. Post surgical changes are seen in the cervical spine. IMPRESSION: No acute pulmonary process.
== END 2017-12-11 14:33 ==
LOC: DI 14:13
PROVIDERS: PCP Student in an Organized Health Care Education/Training Program; Visit Provider Family Medicine
DX: R09.02 Hypoxemia (principal)
CPT/HCPCS: 80048; 71046; 85025

== ENCOUNTER 2018-01-18 14:49 | Outpatient (REF) | payer MEDICARE, BC, SELFPAY ==
[2018-01-18 15:18] LABS: Abs Immature Grans 0.14 k/cumm (0.0-0.09); Absolute Basophil Count 0.03 k/cumm (0.0-0.2); Absolute Monocyte Count 0.55 k/cumm (0.11-0.7); Absolute Neutrophil Count 8.82 k/cumm (1.2-6.7); Basophils % 0.3; Eosinophils % 1.8; HCT 22.4 % (36.0-46.0); Immature Grans % 1.3; Mean Corp. HGB Concentration 29.5 g/dL (32.0-36.0); Mean Corpuscular Hemoglobin 30.4 pg (27.0-33.0); Mean Corpuscular Volume 103.2 fL (80-95); Neutrophils % 80.6; Platelet Count 217 x1000/uL (130-400); RBC 2.17 m/cumm (4.00-5.20); RBC Distribution Width 19.7 % (11.7-14.6); White Blood Cell Count 10.94 k/cumm (4.4-10.8)
[2018-01-18 15:22] LABS: ALT 26 U/L (12-78); AST 21 U/L (15-37); Albumin 3.2 g/dL (3.4-5.0); Alkaline Phosphatase 84 U/L (46-116); Anion Gap 10.4 mmol/L (3-11); BUN 32 mg/dL (7-18); Bilirubin, Total 0.3 mg/dL (0.2-1.0); C-Reactive Protein 0.12 mg/dL (0.0-0.3); CO2 28.6 mmol/L (21.0-32.0); CREATININE 1.04 mg/dL (0.55-1.02); Calcium 9.3 mg/dL (8.5-10.1); Chloride 104 mmol/L (98-107); Estimated GFR 51.38 (mL/min/1.73m2); Glucose 127 mg/dL (70-100); Potassium 4.6 mmol/L (3.5-5.1); Sodium 143 mmol/L (136-145); Total Protein 5.9 g/dL (6.4-8.2)
[2018-01-18 16:00] LABS: Anisocytosis 2+; Basophilic Stippling Present; HGB 6.6 g/dL (12.0-15.5)
[2018-01-18 16:01] LABS: Hypochromasia 2+; Macrocytosis 2+; Microcytosis 1+; Polychromasia Present
[2018-01-18 16:02] LABS: ESR 20 MM/HR (0-30)
== END 2018-01-18 15:09 ==
LOC: LBN 14:49
PROVIDERS: PCP Student in an Organized Health Care Education/Training Program; Visit Provider Family Medicine
DX: D64.9 Anemia, unspecified (principal); M06.9 Rheumatoid arthritis, unspecified; J18.9 Pneumonia, unspecified organism; E78.5 Hyperlipidemia, unspecified; I10 Essential (primary) hypertension; N18.9 Chronic kidney disease, unspecified
CPT/HCPCS: 80053; 85652; 85025; 86140

== ENCOUNTER 2018-01-18 18:44 | Emergency (ER) | payer MEDICARE, BC, SELFPAY ==
[2018-01-18] VITALS (35 sets, daily range): BP systolic 115–143; BP diastolic 43–74; PULSE 75–88; RESP 10–26; TEMP 36.4–37.5; O2SAT 87–99
--- NOTE | 2018-01-18 19:17 | ED.GENADUL_ITS ---
Discharge Plan Disposition Patient Disposition: SNF (LEVEL 1) [facility] Condition: Stable Discharge Details Chief Complaint: GenMedical Clinical Impression: Anemia, GI bleed Reason For Visit: JAYESH Primary Care Provider: Kinga Arceo ED Provider: Sally Sheppard Home Meds and New Rx's Prescriptions: Continued atorvastatin [Lipitor] 10 MG tablet 10 mg PO DAILY RF: 0 metoprolol succinate 50 MG tablet extended release 24 hr 50 mg PO DAILY RF: 0 aspirin [Aspir-81] 81 MG tablet,delayed release (DR/EC) 81 mg PO QAM RF: 0 amitriptyline 25 MG tablet 25 mg PO HS RF: 0 methotrexate sodium 2.5 MG tablet 10 mg PO QWEEK RF: 0 folic acid 1 MG tablet 1 mg PO QAM RF: 0 multivitamin 1 EACH capsule 1 tab PO DAILY RF: 0 cholecalciferol (vitamin D3) [Vitamin D3] 400 UNIT tablet 400 unit PO DAILY RF: 0 amlodipine 5 mg Tablet 5 mg PO QAM RF: 0 calcium carbonate-vitamin D3 [Calcium 600 with Vitamin D3] 600 mg(1,500mg) - 200 unit Tablet 1 tab PO QAM RF: 0 prednisone 2.5 mg Tablet 2.5 mg PO QAM RF: 0 docusate sodium [Colace] 100 mg Capsule 2 tab PO BID PRNRF: 0 furosemide 20 mg Tablet 20 mg PO QAM RF: 0 sucralfate 1 gram Tablet 1 g PO AC & HS Qty: 0 RF: 0 nystatin 500,000 unit Tablet 500,000 units PO TID Qty: 0 RF: 0 oxycodone 15 mg Tablet 15 mg PO Q4H PRN PRNQty: 20 RF: 0 potassium chloride [Klor-Con M20] 20 mEq Tablet,Er Particles/Crystals 20 meq PO TID Qty: 0 RF: 0 magnesium oxide 400 mg (241.3 mg magnesium) Tablet 400 mg PO BID Qty: 0 RF: 0 lorazepam 0.5 mg Tablet 0.5 mg PO TID PRN PRNQty: 0 RF: 0 ferrous sulfate 325 mg (65 mg iron) Tablet 325 mg PO BID Qty: 0 RF: 0 acidophilus-pectin, citrus 25 million cell -100 mg Tablet 1 cap PO TID Qty: 0 RF: 0 gabapentin [Neurontin] 800 mg Tablet 800 mg PO TID RF: 0 allopurinol 300 mg Tablet 300 mg PO QAM RF: 0 melatonin 3 mg Tablet 3 mg PO HS PRNRF: 0 acetaminophen [Acetaminophen Extra Strength] 500 mg Tablet 1,000 mg PO Q6H PRNRF: 0 Discharge Instructions Instructions: Gastrointestinal Bleeding (ED), Anemia (ED), Blood Transfusion (GEN) Additional Instructions: Please return immediately to the emergency department if you develop any new or worsening symptoms or if you become otherwise concerned. It is extremely important that you make an appointment to be seen in follow-up by your primary care doctor. Referrals: Kinga Arceo, [Primary Care Provider] - Discharge Data Discharge Date/Time-TO BE ENTERED AT DEPARTURE: 01/19/18 00:19 Medical Decision Making Ashia Montero is a 77 y/o woman with history of rheumatoid arthritis, aortic stenosis, hypertension, anemia presenting to the emergency department with hemoglobin 6.6 without apparent active bleeding. On exam patient is elderly but well and nontoxic appearing. Hemoccult positive. Concern for chronic anemia of unknown etiology, likely related to slow GI bleed. Exam/history not consistent with hemorrhage, shock, acute emergent GI bleed. Plan for 2 unit PRBC transfusion and discharge back to rehab with outpatient follow-up. Patient is amenable to the plan. Lengthy discussion with patient regarding return to emergency department precautions and importance of outpatient follow-up. She is amenable to the plan. Pt signed out to Dr. Belcher at shift change with completion of transfusion pending, anticipate d/c to rehab. Medical Records Medical records reviewed: Yes I reviewed the patient's medical records. Lab Data Lab results reviewed: Yes I reviewed the patient's lab results. HPI General Mode of arrival: EMS . Date/Time Provider Initiated Documentation: 01/18/18 18:57 . Limitations to Documentation: no limitations . Information obtained by: patient, RN notes reviewed and old records reviewed . HPI Narrative: Ashia Montero is a 77-year-old woman with a history of rheu matoid arthritis, hypertension, aortic stenosis presenting to the emergency department with anemia. Record review shows that patient was admitted to [facility] for patella fracture, after admission found to be febrile en route to rehab and was admitted to [facility] for pneumonia 11/05, discharged to rehab 11/14. Patient reports that she has been doing well at rehab, and is planning to be discharged in 2 days. Patient had lab work today showing hemoglobin of 6.6. Patient has been feeling somewhat lightheaded with standing, and was sent to the emergency department for 2 unit blood transfusion. Patient reports that other than feeling somewhat lightheaded and generally weak over the past few days, she feels in her usual state of health. She has generalized arthralgias secondary to her rheumatoid arthritis that are unchanged but no other pain. No fevers, no shortness of breath, no cough, no vomiting, no diarrhea, no rash, no numbness/tingling. Patient reports that she has had some dark stool over the past few months. Related Data Home Medications Medication Instructions Recorded Confirmed amitriptyline 25 mg PO HS 07/08/13 01/18/18 aspirin [Aspir-81] 81 mg PO REPLACED BY [facility] 07/08/13 01/18/18 atorvastatin [Lipitor] 10 mg PO DAILY 07/08/13 01/18/18 cholecalciferol (vitamin D3) 400 unit PO DAILY 07/08/13 11/05/17 [Vitamin D3] folic acid 1 mg PO QAM 07/08/13 01/18/18 methotrexate sodium 10 mg PO QWEEK 07/08/13 01/18/18 metoprolol succinate 50 mg PO DAILY 07/08/13 01/18/18 multivitamin 1 tab PO DAILY 07/08/13 01/18/18 amlodipine 5 mg PO QAM 11/05/17 01/18/18 calcium carbonate-vitamin D3 1 tab PO QAM 11/05/17 01/18/18 [Calcium 600 with Vitamin D3] docusate sodium [Colace] 2 tab PO BID PRN 11/05/17 01/18/18 furosemide 20 mg PO QAM 11/05/17 01/18/18 prednisone 2.5 mg PO QAM 11/05/17 01/18/18 acidophilus-pectin, citrus 1 cap PO TID #0 tab 11/14/17 01/18/18 ferrous sulfate 325 mg PO BID #0 tab 11/14/17 01/18/18 lorazepam 0.5 mg PO TID PRN PRN #0 tab 11/14/17 magnesium oxide 400 mg PO BID #0 tab 11/14/17 01/18/18 nystatin 500,000 units PO TID #0 tab 11/14/17 oxycodone 15 mg PO Q4H PRN PRN #20 tab 11/14/17 01/18/18 potassium chloride [Klor-Con M20] 20 meq PO TID #0 tab 11/14/17 01/18/18 sucralfate 1 g PO AC & HS #0 tab 11/14/17 01/18/18 acetaminophen [Acetaminophen Extra 1,000 mg PO Q6H PRN 01/18/18 01/18/18 Strength] allopurinol 300 mg PO QAM 01/18/18 01/18/18 gabapentin [Neurontin] 800 mg PO TID 01/18/18 01/18/18 melatonin 3 mg PO HS PRN 01/18/18 01/18/18 Previous Rx's Medication Instructions Recorded acidophilus-pectin, citrus 1 cap PO TID #0 tab 11/14/17 ferrous sulfate 325 mg PO BID #0 tab 11/14/17 lorazepam 0.5 mg PO TID PRN PRN #0 tab 11/14/17 magnesium oxide 400 mg PO BID #0 tab 11/14/17 nystatin 500,000 units PO TID #0 tab 11/14/17 oxycodone 15 mg PO Q4H PRN PRN #20 tab 11/14/17 potassium chloride [Klor-Con M20] 20 meq PO TID #0 tab 11/14/17 sucralfate 1 g PO AC & HS #0 tab 11/14/17 Allergies Allergy/AdvReac Type Severity Reaction Status Date / Time hydrochlorothiazide Allergy Unknown Unverified 01/18/18 18:54 General Stated Complaint: GenMedical HONORIO: 3 Review of Systems Review of Systems Constitutional: denies fevers Eyes: denies eye pain ENT: denies facial pain, dental pain, sore throat Cardiovascular: denies chest pain, edema Respiratory: denies SOB, cough GI: denies abdominal pain, vomiting, diarrhea : denies flank pain MSK: denies back pain, neck pain, reports chronic arthralgias unchanged Skin: denies rash Neuro: denies headaches, reports generalized weakness, mild lightheadedness PFSH Aortic stenosis (Chronic) Anemia (Chronic) Chronic pain (Chronic) Dyslipidemia (Acute) Hypertension (Chronic) Rheumatoid arthritis (Chronic) UTI (urinary tract infection) (Acute) Aortic stenosis (Chronic) Degenerative disc disease, cervical (Chronic) Degenerative disc disease, lumbar (Chronic) GERD (gastroesophageal reflux disease) (Chronic) Hypertension (Chronic) Hyperuricemia (Chronic) Inflammatory arthritis (Chronic) Osteoporosis (Chronic) Social History Smoking/Tobacco Use Status: Never Exam Narrative Exam Narrative: Constitutional: well and [id number], pleasant, conversing normally HENT: head atraumatic, normocephalic normal inspection, mucous membranes moist Eyes: conjunctiva normal, sclera normal, pupils 3mm b/l Neck: no stridor, normal ROM, trachea midline Chest: normal inspection Resp: normal work of breathing, LCTAB Cardio: normal rate, normal rhythm, 3/6 systolic murmur GI: abdomen soft, non-tender, non-distended, normal rectal exam, small amt of dark stool, hemoccult positive Back: normal inspection, no rash Skin: warm, dry, normal color, no rash Neuro: alert, not altered, grossly non-focal, normal tone Psych: normal mood, normal affect, normal behavior Course Vital Signs Temperature 36.8 C 01/18/18 18:43 Pulse 84 01/18/18 18:43 Respiratory Rate 17 01/18/18 18:43 Pulse Oximetry 95 01/18/18 18:43 Temperature 36.8 C 01/18/18 18:43 Temperature Source Skin 01/18/18 18:43 Pulse 84 01/18/18 18:43 Respiratory Rate 17 01/18/18 18:43 Blood Pressure Position Supine 01/18/18 18:43 Pulse Oximetry 95 01/18/18 18:43 Oxygen Delivery Method Room Air 01/18/18 18:43 Oxygen Flow Rate 0 01/18/18 18:43 Pain Level 0 01/18/18 18:43
[2018-01-19 00:33] VITALS: BP 139/63; PULSE 79; RESP 26; TEMP 36.4; O2SAT 99
== END 2018-01-19 00:19 | disposition skilled nursing facility (03) ==
PROVIDERS: Emergency Provider Student in an Organized Health Care Education/Training Program; PCP Student in an Organized Health Care Education/Training Program
DX: K92.2 Gastrointestinal hemorrhage, unspecified (principal); D64.89 Other specified anemias; I10 Essential (primary) hypertension
CPT/HCPCS: 36415; 36430; 86850; 86900; 86901; 86920; 99285; 99284; P9016

== ENCOUNTER 2018-01-20 09:16 | Outpatient (REF) | payer MEDICARE, BC, SELFPAY ==
[2018-01-20 09:33] LABS: HCT 29.9 % (36.0-46.0); HGB 9.3 g/dL (12.0-15.5)
== END 2018-01-20 09:36 ==
LOC: LBN 09:16
PROVIDERS: PCP Student in an Organized Health Care Education/Training Program; Visit Provider Family Medicine
DX: D64.9 Anemia, unspecified (principal)
CPT/HCPCS: 85014; 85018

== ENCOUNTER 2018-09-27 14:35 | Outpatient (REF) | payer MEDICARE, BC, SELFPAY ==
[2018-09-27 15:28] LABS: Anion Gap 11.1 mmol/L (3-11); BUN 20 mg/dL (7-18); CO2 26.9 mmol/L (21.0-32.0); CREATININE 0.73 mg/dL (0.55-1.02); Calcium 8.9 mg/dL (8.5-10.1); Chloride 105 mmol/L (98-107); Glucose 92 mg/dL (70-100); Potassium 4.2 mmol/L (3.5-5.1); Sodium 143 mmol/L (136-145)
[2018-09-27 16:13] LABS: Abs Immature Grans 0.02 k/cumm (0.0-0.09); Absolute Basophil Count 0.03 k/cumm (0.0-0.2); Absolute Eosinophil Count 0.16 k/cumm (0.0-0.7); Absolute Lymphocyte Count 0.95 k/cumm (1.2-3.4); Absolute Neutrophil Count 6.95 k/cumm (1.2-6.7); Basophils % 0.3; Eosinophils % 1.8; HCT 37.5 % (36.0-46.0); HGB 11.3 g/dL (12.0-15.5); Immature Grans % 0.2; Lymphocytes % 10.4; Mean Corp. HGB Concentration 30.1 g/dL (32.0-36.0); Mean Corpuscular Hemoglobin 30.9 pg (27.0-33.0); Mean Corpuscular Volume 102.5 fL (80-95); Neutrophils % 76.3; Platelet Count 221 x1000/uL (130-400); RBC 3.66 m/cumm (4.00-5.20); RBC Distribution Width 18.6 % (11.7-14.6); White Blood Cell Count 9.11 k/cumm (4.4-10.8)
[2018-09-27 16:49] LABS: Anisocytosis 2+; Diff Comment RBC Morph Reviewed; Macrocytosis 2+
== END 2018-09-27 14:55 ==
LOC: LBN 14:35
PROVIDERS: PCP Student in an Organized Health Care Education/Training Program; Visit Provider Nurse Practitioner Adult Health
DX: E87.1 Hypo-osmolality and hyponatremia (principal); E78.5 Hyperlipidemia, unspecified; I10 Essential (primary) hypertension; D64.9 Anemia, unspecified
CPT/HCPCS: 80048; 85025

== ENCOUNTER 2018-10-01 11:07 | Outpatient (CLI) | payer MEDICARE, BC, SELFPAY ==
[2018-10-01 12:29] LABS: Abs Immature Grans 0.07 k/cumm (0.0-0.09); Absolute Basophil Count 0.04 k/cumm (0.0-0.2); Absolute Eosinophil Count 0.19 k/cumm (0.0-0.7); Absolute Lymphocyte Count 1.39 k/cumm (1.2-3.4); Absolute Monocyte Count 0.97 k/cumm (0.11-0.7); Absolute Neutrophil Count 5.52 k/cumm (1.2-6.7); Basophils % 0.5; Eosinophils % 2.3; HCT 36.6 % (36.0-46.0); HGB 11.6 g/dL (12.0-15.5); Immature Grans % 0.9; Mean Corp. HGB Concentration 31.7 g/dL (32.0-36.0); Mean Corpuscular Hemoglobin 31.9 pg (27.0-33.0); Mean Corpuscular Volume 100.5 fL (80-95); Mean Platelet Volume 11.3 fL (8.0-11.0); Monocytes % 11.9; Neutrophils % 67.4; Platelet Count 232 x1000/uL (130-400); RBC 3.64 m/cumm (4.00-5.20); RBC Distribution Width 18.4 % (11.7-14.6); White Blood Cell Count 8.18 k/cumm (4.4-10.8)
[2018-10-01 12:31] LABS: Anion Gap 9.1 mmol/L (3-11); BUN 21 mg/dL (7-18); CO2 29.9 mmol/L (21.0-32.0); CREATININE 0.81 mg/dL (0.55-1.02); Calcium 9.2 mg/dL (8.5-10.1); Chloride 104 mmol/L (98-107); Glucose 103 mg/dL (70-100); Potassium 4.4 mmol/L (3.5-5.1); Sodium 143 mmol/L (136-145)
== END 2018-10-01 11:27 ==
PROVIDERS: PCP Student in an Organized Health Care Education/Training Program; Visit Provider Nurse Practitioner Adult Health
DX: E87.1 Hypo-osmolality and hyponatremia (principal)
CPT/HCPCS: 36415; 80048; 85025

== ENCOUNTER 2018-12-10 10:46 | Outpatient (CLI) | payer MEDICARE, BC, SELFPAY ==
[2018-12-10 11:45] LABS: HCT 33.1 % (36.0-46.0); HGB 9.8 g/dL (12.0-15.5); Mean Corp. HGB Concentration 29.6 g/dL (32.0-36.0); Mean Corpuscular Volume 101.2 fL (80-95); Mean Platelet Volume 10.4 fL (8.0-11.0); Platelet Count 264 x1000/uL (130-400); RBC 3.27 m/cumm (4.00-5.20); RBC Distribution Width 17.5 % (11.7-14.6); Reticulocyte 6.3 % (0.5-2.4); White Blood Cell Count 9.76 k/cumm (4.4-10.8)
[2018-12-10 11:52] LABS: Anion Gap 7.3 mmol/L (3-11); BUN 21 mg/dL (7-18); CO2 29.7 mmol/L (21.0-32.0); CREATININE 1.05 mg/dL (0.55-1.02); Chloride 104 mmol/L (98-107); Estimated GFR 50.69 (mL/min/1.73m2); Glucose 128 mg/dL (70-100); Potassium 4.5 mmol/L (3.5-5.1); Sodium 141 mmol/L (136-145)
[2018-12-10 12:08] LABS: Iron 123 ug/dL (50-175); Total Iron Binding Capacity 283 ug/dL (250-450); Transferrin Sat 43 % (15-50)
== END 2018-12-10 11:06 ==
PROVIDERS: PCP Student in an Organized Health Care Education/Training Program; Visit Provider Nurse Practitioner Adult Health
DX: K57.31 Diverticulosis of large intestine without perforation or abscess with bleeding (principal); K92.2 Gastrointestinal hemorrhage, unspecified
CPT/HCPCS: 36415; 80048; 85027; 83540; 83550; 85045

== ENCOUNTER 2018-12-26 18:11 | Outpatient (REF) | payer MEDICARE, BC, SELFPAY ==
[2018-12-26 19:01] LABS: Bilirubin Negative (Negative); Blood Negative (Negative); Clarity Clear (Clear); Glucose Negative (Negative); Ketones Negative (Negative); Leukocyte Esterase Negative (Negative); Nitrite Negative (Negative); Urobilinogen 0.2 EU/dL (Up TO 0.2); pH 5.5 (5-8)
[2018-12-26 19:31] LABS: Bacteria Negative HPF (Negative); C & S Indicated? No; Crystals Negative HPF (Negative); Epithelial Cells Many HPF (Negative); Mucus Negative (Negative); RBC 0-2 HPF (0-2); WBC 0-2 HPF (0-5)
== END 2018-12-26 18:31 ==
LOC: LBN 18:11
PROVIDERS: PCP Student in an Organized Health Care Education/Training Program; Visit Provider Family Medicine
DX: R50.9 Fever, unspecified (principal)
CPT/HCPCS: 81003; 81015

== ENCOUNTER 2018-12-27 14:13 | Outpatient (REF) | payer MEDICARE, BC, SELFPAY ==
[2018-12-27 15:11] LABS: Abs Immature Grans 0.03 k/cumm (0.0-0.09); Absolute Basophil Count 0.01 k/cumm (0.0-0.2); Absolute Eosinophil Count 0.13 k/cumm (0.0-0.7); Absolute Lymphocyte Count 0.78 k/cumm (1.2-3.4); Absolute Neutrophil Count 4.22 k/cumm (1.2-6.7); Basophils % 0.2; Eosinophils % 2.3; HCT 37.5 % (36.0-46.0); HGB 11.2 g/dL (12.0-15.5); Immature Grans % 0.5; Lymphocytes % 13.8; Mean Corp. HGB Concentration 29.9 g/dL (32.0-36.0); Mean Corpuscular Hemoglobin 30.1 pg (27.0-33.0); Mean Corpuscular Volume 100.8 fL (80-95); Monocytes % 8.8; Neutrophils % 74.4; Platelet Count 144 x1000/uL (130-400); RBC 3.72 m/cumm (4.00-5.20); RBC Distribution Width 18.1 % (11.7-14.6); White Blood Cell Count 5.67 k/cumm (4.4-10.8)
[2018-12-27 15:13] LABS: Anion Gap 7.6 mmol/L (3-11); BUN 26 mg/dL (7-18); CO2 28.4 mmol/L (21.0-32.0); Calcium 8.6 mg/dL (8.5-10.1); Chloride 100 mmol/L (98-107); Estimated GFR 43.45 (mL/min/1.73m2); Glucose 147 mg/dL (70-100); Potassium 4.5 mmol/L (3.5-5.1); Sodium 136 mmol/L (136-145)
== END 2018-12-27 14:33 ==
LOC: LBN 14:13
PROVIDERS: PCP Student in an Organized Health Care Education/Training Program; Visit Provider Nurse Practitioner Adult Health
DX: N18.3 Chronic kidney disease, stage 3 (moderate) (principal); I82.502 Chronic embolism and thrombosis of unspecified deep veins of left lower extremity; D50.9 Iron deficiency anemia, unspecified; K92.2 Gastrointestinal hemorrhage, unspecified
CPT/HCPCS: 80048; 85025